=== PATIENT | male | born 1990 | race Caucasian/White ===

== ENCOUNTER 2019-11-04 17:15 | Inpatient (IN) | payer SELFPAY ==
[~2019-11-04] VITALS: Ht 185.4 cm; Wt 74.0 kg
[2019-11-04] VITALS (14 sets, daily range): BP systolic 83–131; BP diastolic 39–98
--- NOTE | 2019-11-04 17:16 | NUR ---
ED Nurse Note: per Dr. Kearns's order, patient was placed on 4 point lether restraint, patient is being uncooperative and combative.
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
--- NOTE | 2019-11-04 17:25 | NUR ---
ED Nurse Note: patient's O2 saturation was dropping to 75% and patient appears to be cyanotic, Dr Kearns at bedside, OPA placed as ordered. patient on 97% on room air, patient does not have gag reflex at this time, pinpoint pupils.
[2019-11-04] MEDS ORDERED: DiphenhydrAMINE 50mg/ml Inj IM ONE (17:30)
[2019-11-04] MEDS ORDERED: Haloperidol 5mg/ml Inj IM ONE (17:30)
[2019-11-04 17:43] LABS: APPEARANCE,URINE CLEAR; BILIRUBIN, URINE NEGATIVE (NEGATIVE); COLOR,URINE PALE YELLOW; GLUCOSE, URINE (UA) NEGATIVE (NEGATIVE); KETONES,URINE NEGATIVE (NEGATIVE); LEUKOCYTE ESTERASE ,URINE NEGATIVE (NEGATIVE); NITRITE,URINE NEGATIVE (NEGATIVE); PH,URINE 6.5 (4.5-8.0); PROTEIN,URINE NEGATIVE (NEGATIVE); UROBILINOGEN,URINE NORMAL MG/DL (0.0-1.0)
[2019-11-04] MEDS ORDERED: Etomidate 40mg/20ml Inj IV ONE (17:45)
[2019-11-04 17:46] LABS: BASOPHILS % (AUTO) 1.1 % (0.0-2.0); EOSINOPHILS % (AUTO) 1.6 % (0.0-3.0); HEMATOCRIT 42.5 % (42.0-52.0); HEMOGLOBIN 15.1 G/DL (14.2-18.0); LYMPHOCYTES % (AUTO) 37.6 % (20.0-45.0); MEAN CORPUSCULAR VOLUME 89 FL (80-99); MONOCYTES % (AUTO) 5.2 % (1.0-10.0); NEUTROPHILS % (AUTO) 54.6 % (45.0-75.0); PLATELET COUNT 379 K/UL (150-450); RED BLOOD COUNT 4.76 M/UL (4.70-6.10); RED CELL DISTRIBUTION WIDTH 10.4 % (11.6-14.8); WHITE BLOOD COUNT 8.6 K/UL (4.8-10.8)
--- NOTE | 2019-11-04 17:54 | NUR ---
ED Nurse Note: 5mg etomidate given IVP as ordered by Dr Kearns, RT at bedside, Dr Kearns at bedside for RSI.
[2019-11-04 18:02] LABS: ANION GAP 14 mmol/L (5-15); BLOOD UREA NITROGEN 24 mg/dL (7-18); CALCIUM 8.5 MG/DL (8.5-10.1); CARBON DIOXIDE 27 MMOL/L (21-32); CHLORIDE 109 MMOL/L (98-107); CREATININE 1.4 MG/DL (0.55-1.30); POTASSIUM 3.8 MMOL/L (3.5-5.1); SODIUM 150 MMOL/L (136-145)
[2019-11-04 18:14] LABS: ALANINE AMINOTRANSFERASE 43 U/L (12-78); ALBUMIN 3.7 G/DL (3.4-5.0); ALBUMIN/GLOBULIN RATIO 1.1 (1.0-2.7); ALKALINE PHOSPHATASE 155 U/L (46-116); ASPARTATE AMINO TRANSFERASE 25 U/L (15-37); BILIRUBIN,TOTAL 0.2 MG/DL (0.2-1.0); CREATINE KINASE 245 U/L (26-308)
--- NOTE | 2019-11-04 18:20 | NUR ---
ED Nurse Note: Orogastric tube placed as ordered by Dr. Kearns by Homa JURADO, 80 christ on the lip. patient is intbuated with 7.5 et tube and 25 on the christ.
--- NOTE | 2019-11-04 18:43 | Diagnostic Imaging Report ---
EXAM: XR Chest, 1 View CLINICAL HISTORY: S/P INTUB TECHNIQUE: Frontal view of the chest. COMPARISON: No relevant prior studies available. FINDINGS: Lungs: Question subtle airspace opacities within the mid to lower lungs. Pleural space: Unremarkable. Heart: Unremarkable. Mediastinum: Unremarkable. Bones/joints: Unremarkable. Tubes, lines and devices: Endotracheal tube terminates at the clavicular heads. Enteric tube is seen coursing the stomach. IMPRESSION: 1. Question subtle airspace opacities within the mid to lower lungs which may be inflammatory or infectious. 2. Support devices appear to be in appropriate position.
--- NOTE | 2019-11-04 19:04 | Pulmonolgy Critical Care Note ---
Critical Care - Asmt/Plan Assessment/Plan: Pulmonary CCM Consultation HPI The patient was acting combative, required sedation and intubation, noted to have elevated ETOH level, positive Methamphetamine. 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 EKG: Rate: tachycardiac Rhythm: NSR ST Segments: no acute changes CXR: ETT/Enteric tube appropriate, subtle basal airspace abnormalities Critical Care - Objective Last 24 Hour Vital Signs Date Time Temp Pulse Resp B/P (MAP) Pulse Ox O2 Delivery O2 Flow Rate FiO2 11/04/19 18:47 17 110/62 Mechanical Ventilator 11/04/19 18:32 17 105/60 Mechanical Ventilator 11/04/19 18:30 106 15 Mechanical Ventilator 100 11/04/19 18:29 97.5 106 15 113/98 100 Room Air 100 11/04/19 18:24 98 17 96 Room Air 11/04/19 18:17 20 130/60 Room Air 11/04/19 18:16 106 17 96 Room Air 11/04/19 18:14 101 22 100 11/04/19 18:01 111 19 96 Room Air 11/04/19 17:46 104 19 96 Room Air 11/04/19 17:31 109 19 96 Room Air 11/04/19 17:16 111 19 78 Room Air 11/04/19 17:11 97.5 90 20 130/54 (79) 98 Room Air Critical Care - Subjective ROS Limited/Unobtainable: No Condition: critical EKG Rhythm: Sinus Tachycardia Vent Support Breath Rate: 14 Vent Support Mode: AC Vent Tidal Volume: 450 Sputum Amount: Moderate PEEP: 5.0 PIP: 11 Alvin Barrett MD Nov 04, 2019 19:04
--- NOTE | 2019-11-04 19:06 | Diagnostic Imaging Report ---
EXAM: XR Abdomen, 2 Views CLINICAL HISTORY: TUBE PLCMT TECHNIQUE: Frontal view of the abdomen/pelvis with upright view of the abdomen. COMPARISON: No relevant prior studies available. FINDINGS: Intraperitoneal space: No free air. Gastrointestinal tract: Moderate amount stool seen through the colon. Bones/joints: Unremarkable. Tubes, lines and devices: Enteric tube with tip in the gastric antrum/first portion the duodenum. IMPRESSION: Enteric tube with tip in the gastric antrum/first portion of the duodenum.
--- NOTE | 2019-11-04 19:15 | NUR ---
HAND-OFF: Report given to Elise Garsia RN, endorsed all plan of care to Elise GUTIERRES. .
--- NOTE | 2019-11-04 19:25 | NUR ---
ED Nurse Note: Recieved report from Jaime Peterson to resume care, pt is in room resting quietly, on ventilator support, has patent IV site in right AC with propofol infusing, pt on cardiac monitoring, tolerating well, was reported pt was very combative, is currently calm, will give report to ICU for pt admission.
[2019-11-04] MEDS ORDERED: LORazepam Inj 2mg/ml 1ml IV PRN ×2 (19:30→22:00)
[2019-11-04] MEDS ORDERED: Albuterol/Ipratropium 3ml neb HHN PRN (19:30)
--- NOTE | 2019-11-04 19:45 | NUR ---
ED Nurse Note: Report given to BHAVIK Rivera for floor admission, no changes noted, tp resting quietly, on vent and propofol infusing, no changes made, pt being taken to floor unit via gurney with SNEHAL-Tech, RB and respiratory therapist, nad or changes noted during pt transport.
--- NOTE | 2019-11-04 20:10 | NUR ---
NURSE NOTES: Received report from BHAVIK Olivares. patient arrived to unit via gurney agitated and restless. patient intubated with 7.5 ETT at 25cm lip right side with vent settings AC 14, TV 450, FiO2 50%, PEEP 5. OGT in place and clamped. PIV on the right AC gauge 20 clean dry intact. skin warm dry intact. Pupils pinpoint at 2mm PERRLA. Patient noncompliant, attempting to get up requiring four staff to control. bilateral soft wrist restraints applied. 16F alvarenga catheter inserted. clear yellow urine draining. Afebrile, NSR, BP stable. patient arrived with propofol drip infusing at 10mcg/kg/min. will continue to monitor.
[2019-11-04] MEDS ORDERED: fentaNYL Citrate 2,500 MCG in NS 200 ML IV SCH (21:00)
[2019-11-04] MEDS: Thiamine 100mg in D5W 55ml IVPB SCH (21:31)
[2019-11-04] MEDS: MULTIVITAMIN IV SCH (21:32)
[2019-11-04] MEDS: [UNRECOGNIZED DRUG - OTHER] IV SCH (21:32)
[2019-11-04] MEDS: FOLIC ACID IV SCH (21:32)
[2019-11-04] MEDS: MAGNESIUM SULFATE IV SCH (21:32)
--- NOTE | 2019-11-04 22:00 | NUR ---
NURSE NOTES: Orders received from Dr. Barrett to start patient on fentanyl drip. patient remains extremely restless and agitated. patient suctioned orally. secretions clear white thin. will continue to monitor.
--- NOTE | 2019-11-04 22:00 | NUR ---
NURSE NOTES: Patient noted to continue to sit in bed. Fentanyl is at max rate 400mcg/hr. PRN 2 mg ativan were given and patient continues to sit up and kick at nurses. Paged MD Barrett, update given, New orders received, Propofol to be started to maintain RASS -1, Ativan to be changed, now 1mg PRN Q2HR. If SBP <100 then give 500ml NS Bolus, If 500 NS bolus ineffective then give 25% Albumin. Orders read back and confirmed by MD. BHAVIK Fajardo and Nayeli short.
[2019-11-04] MEDS: Pantoprazole Inj IVP SCH (22:13)
[2019-11-04] MEDS: cefTRIAXone 1gm/D5W 55ml IVPB SCH ×2 (22:13)
[2019-11-05] VITALS (61 sets, daily range): BP systolic 75–112; BP diastolic 33–65
[2019-11-05] MEDS ORDERED: fentaNYL Citrate 2,500 MCG in NS 200 ML IV SCH ×2
--- NOTE | 2019-11-05 | NUR ---
NURSE NOTES: Dr. Barrett examined patient. ordered to keep sedation to RASS -1 to -2. patient still restless. unable to leave the patients bedside as he attempts to get up from the bed. propofol maintained at 50mcg/kg/min. fentanyl drip started simultaneously at 400mcg/hr. PIV started on right upper arm gauge 22. will continue to monitor.
[2019-11-05] MEDS: fentaNYL Citrate 2,500 MCG in NS 200 ML IV SCH ×3 (00:31→16:42)
--- NOTE | 2019-11-05 01:45 | NUR ---
NURSE NOTES: ABG done and reported to Dr. Barrett. Dr. Barrett aware of abnormal results. Ventilator settings adjusted to AC 18 TV450 FiO2 60% PEEP 5. BP dropped down to 87/40. ordered to start Levophed drip to SBP >90. Call transferred to ER MD for central line placement.
--- NOTE | 2019-11-05 02:30 | Emergency Room Report ---
Physical Exam Vital Signs Date Time Temp Pulse Resp B/P (MAP) Pulse Ox O2 Delivery O2 Flow Rate FiO2 11/04/19 17:11 97.5 90 20 130/54 (79) 98 Room Air 11/04/19 18:14 100 Medical Decision Making Diagnostic Impression: Primary Impression: Respiratory failure Additional Impressions: Substance abuse Hypernatremia Renal insufficiency ER Course Called to the ICU to place a central line for a hypotensive patient. This is a patient that is intubated and sedated. Placed a left-sided femoral vein triple- lumen under ultrasound guidance with good blood return and no complications. Patient remained sedated during the entire procedure. Estimated blood loss of 10 cc. Remainder of care per ICU team. Recall as needed. Last Vital Signs Date Time Temp Pulse Resp B/P (MAP) Pulse Ox O2 Delivery O2 Flow Rate FiO2 11/05/19 01:11 107 20 60 11/05/19 00:31 Mechanical Ventilator 11/04/19 20:59 99 11/04/19 19:50 98.4 131/88 Disposition: ADMITTED INPATIENT Condition: Critical Scripts Unable to Obtain Active Prescriptions or Reported Meds Referrals: NOT CHOSEN IPA/MD,REFERRING (PCP) Procedures Central Line Central Line : Consent: Emergent Central Line Lumen: triple Maximal Sterile Barrier Tech: yes cap, yes sterile gown, yes sterile gloves , yes large sterile sheet, yes hand hygiene, yes chlorhexidine prep No Max Barrier Tech Because: emergency insertion Central Line Postion: femoral (L) Complications: none Central Line Post Position: sutured, good blood return Attempts: One Patient Tolerated: Well Complications: None Mariusz Hoang MD Nov 05, 2019 02:30
--- NOTE | 2019-11-05 02:30 | NUR ---
NURSE NOTES: ER MD arrived to insert left femoral TLC. Levophed standard dose started at 5mcg/min. patient calm and quiet and asleep at this time. unable to titrate propofol and fentanyl down as patient gets extremely agitated and combative at lower doses. will continue to monitor.
--- NOTE | 2019-11-05 04:00 | NUR ---
NURSE NOTES: Patient calm and relaxing. fentanyl titrated down to 300mcg/min. propofol kept at 50mcg/kg/min. will continue to monitor.
--- NOTE | 2019-11-05 06:10 | Pulmonolgy Critical Care Note ---
Critical Care - Asmt/Plan Assessment/Plan: Pulmonary CCM Progress Note HPI The patient was acting combative, required sedation and intubation, noted to have elevated ETOH level, positive Methamphetamine. 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 IV Levophed - MAP >65 ICU time 45m EKG: Rate: tachycardiac Rhythm: NSR ST Segments: no acute changes CXR: ETT/Enteric tube appropriate, subtle basal airspace abnormalities Critical Care - Objective Last 24 Hour Vital Signs Date Time Temp Pulse Resp B/P (MAP) Pulse Ox O2 Delivery O2 Flow Rate FiO2 11/05/19 05:00 12 98/51 Mechanical Ventilator 60 11/05/19 05:00 98/51 11/05/19 05:00 18 Mechanical Ventilator 60 11/05/19 05:00 98.1 108 14 98/51 (67) 89 11/05/19 04:49 107 22 100 11/05/19 04:45 106 15 102/53 (69) 89 11/05/19 04:30 106 18 104/53 (70) 96 11/05/19 04:15 107 20 104/48 (66) 91 11/05/19 04:03 21 91/41 Mechanical Ventilator 60 11/05/19 04:00 92 18 91/41 (58) 96 11/05/19 04:00 92 11/05/19 04:00 91/41 11/05/19 04:00 18 Mechanical Ventilator 60 11/05/19 04:00 Mechanical Ventilator 11/05/19 04:00 60 11/05/19 03:45 92 18 91/40 (57) 96 11/05/19 03:30 92 18 90/36 (54) 97 11/05/19 03:24 91 18 100 11/05/19 03:15 91 18 93/39 (57) 93 11/05/19 03:00 94 18 89/45 (60) 98 11/05/19 03:00 18 89/45 Mechanical Ventilator 60 11/05/19 03:00 89/45 11/05/19 03:00 18 Mechanical Ventilator 60 11/05/19 02:45 92 18 89/43 (58) 98 11/05/19 02:33 85/38 11/05/19 02:30 94 14 85/38 (54) 98 11/05/19 02:15 93 18 85/38 (54) 98 11/05/19 02:00 18 86/35 Mechanical Ventilator 60 11/05/19 02:00 18 Mechanical Ventilator 60 11/05/19 02:00 93 18 86/35 (52) 97 11/05/19 01:45 95 13 86/33 (50) 95 11/05/19 01:30 100 12 85/39 (54) 84 11/05/19 01:15 105 15 85/39 (54) 85 11/05/19 01:11 107 20 60 11/05/19 01:00 98 21 105/45 (65) 94 11/05/19 01:00 21 106/45 Mechanical Ventilator 60 11/05/19 01:00 21 Mechanical Ventilator 60 11/05/19 00:45 101 21 105/45 (65) 95 11/05/19 00:31 21 Mechanical Ventilator 60 11/05/19 00:30 98 21 87/40 (56) 94 11/05/19 00:15 100 21 82/50 (61) 91 11/05/19 00:00 Mechanical Ventilator 11/05/19 00:00 105 11/05/19 00:00 25 89/36 Mechanical Ventilator 60 11/05/19 00:00 60 11/05/19 00:00 108 25 89/36 (53) 94 11/04/19 23:30 101 21 95/63 (74) 99 11/04/19 23:00 99 21 90/39 (56) 98 11/04/19 23:00 21 95/63 Mechanical Ventilator 60 11/04/19 22:45 21 89/42 Mechanical Ventilator 50 11/04/19 22:39 100 21 50 11/04/19 22:30 101 21 89/40 (56) 95 11/04/19 22:30 21 89/40 Mechanical Ventilator 50 11/04/19 22:15 23 104/46 Mechanical Ventilator 50 11/04/19 22:00 115 23 104/46 (65) 100 11/04/19 22:00 17 104/46 Mechanical Ventilator 50 11/04/19 21:43 17 Mechanical Ventilator 50 11/04/19 21:30 97.5 88 17 83/48 (60) 100 11/04/19 21:00 97.5 86 17 83/45 (58) 99 11/04/19 20:59 86 19 99 Mechanical Ventilator 50 11/04/19 20:59 86 17 50 11/04/19 20:10 Mechanical Ventilator 11/04/19 19:50 98.4 88 15 131/88 99 Mechanical Ventilator 50 11/04/19 19:25 98.4 88 15 131/88 99 Mechanical Ventilator 50 11/04/19 19:02 20 149/87 Mechanical Ventilator 11/04/19 18:47 17 110/62 Mechanical Ventilator 11/04/19 18:32 17 105/60 Mechanical Ventilator 11/04/19 18:30 106 15 Mechanical Ventilator 100 11/04/19 18:29 97.5 106 15 113/98 100 Room Air 100 11/04/19 18:24 98 17 96 Room Air 11/04/19 18:17 20 130/60 Room Air 11/04/19 18:16 106 17 96 Room Air 11/04/19 18:14 101 22 100 11/04/19 18:01 111 19 96 Room Air 11/04/19 17:46 104 19 96 Room Air 11/04/19 17:31 109 19 96 Room Air 11/04/19 17:16 111 19 78 Room Air 11/04/19 17:11 97.5 90 20 130/54 (79) 98 Room Air Micro: Microbiology Date/Time Source Procedure Growth Status 11/05/19 05:50 Rectum Received Critical Care - Subjective ROS Limited/Unobtainable: Yes Condition: critical EKG Rhythm: Sinus Rhythm FI02: 60 Vent Support Breath Rate: 18 Vent Support Mode: AC Vent Tidal Volume: 450 Sputum Amount: Small PEEP: 5.0 PIP: 20 I&O: Intake and Output 11/04/19 11/05/19 19:00 07:00 Intake Total 2486.973 ml Output Total 1000 ml 850 ml Balance -1000 ml 1636.973 ml Intake IV Total 2486.973 ml Output Urine Total 1000 ml 850 ml ET-Tube: 7.5 ET Position: 25 Alvin Barrett MD Nov 05, 2019 06:10
--- NOTE | 2019-11-05 07:22 | NUR ---
NURSE NOTES: Received report from BHAVIK Fajardo. Patient is sedated and drowsy. Wake up and get agitated when I touch patient. 3 RNs and 1 RT were helping patient to be calm down for 10min. ETT 7.5/25cm at lipline with vent setting AC 18, VT 450, Peep 5 and FiO2 100%. OGT intact and clamped. 16Fr Ibarra intact and draining with yellow color urine. Left femoral TLC, LFA 20G, Right AC 20G and Right UA 20G IVs intact and clean. Running with propofol 50mcg/kg/hr, Levophed 10mcg/min, fentanyl 300mcg/hr and NS 75ml/hr. Kept dry, clean and comfortable. Will continue plan of care.
--- NOTE | 2019-11-05 07:31 | NUR ---
HAND-OFF: Report given to BHAVIK Diallo.
[2019-11-05 07:53] LABS: ANION GAP 9 mmol/L (5-15); BLOOD UREA NITROGEN 17 mg/dL (7-18); CALCIUM 7.8 MG/DL (8.5-10.1); CARBON DIOXIDE 27 MMOL/L (21-32); CHLORIDE 113 MMOL/L (98-107); CREATINE KINASE 280 U/L (26-308); CREATININE 0.7 MG/DL (0.55-1.30); SODIUM 149 MMOL/L (136-145)
[2019-11-05 08:15] LABS: BASOPHILS % (AUTO) 0.9 % (0.0-2.0); EOSINOPHILS % (AUTO) 0.4 % (0.0-3.0); HEMATOCRIT 37.4 % (42.0-52.0); HEMOGLOBIN 13.4 G/DL (14.2-18.0); LYMPHOCYTES % (AUTO) 27.9 % (20.0-45.0); MEAN CORPUSCULAR VOLUME 90 FL (80-99); MONOCYTES % (AUTO) 2.2 % (1.0-10.0); NEUTROPHILS % (AUTO) 68.6 % (45.0-75.0); PLATELET COUNT 284 K/UL (150-450); RED BLOOD COUNT 4.15 M/UL (4.70-6.10); WHITE BLOOD COUNT 7.1 K/UL (4.8-10.8)
[2019-11-05] MEDS: Pantoprazole Inj IVP SCH ×2 (08:22→21:01)
--- NOTE | 2019-11-05 08:41 | Diagnostic Imaging Report ---
EXAM: XR Chest, 1 View CLINICAL HISTORY: SOB TECHNIQUE: Frontal view of the chest. COMPARISON: 11/04/19 FINDINGS: Lungs: Since the previous study there has been development of moderate to severe diffuse bilateral alveolar infiltrates. Differential diagnostic considerations include pulmonary edema, ARDS or bilateral pneumonia. Pleural space: Unremarkable. No pneumothorax. Heart: Unremarkable. No cardiomegaly. Mediastinum: Unremarkable. Bones/joints: Unremarkable. Tubes, lines and devices: There is an endotracheal tube and NG tube in unchanged position. IMPRESSION: Since the previous study there has been development of moderate to severe diffuse bilateral alveolar infiltrates. Differential diagnostic considerations include pulmonary edema, ARDS or bilateral pneumonia.
--- NOTE | 2019-11-05 09:31 | Diagnostic Imaging Report ---
EXAM: US Duplex Bilateral Lower Extremities Veins CLINICAL HISTORY: DVT lateral leg pain. TECHNIQUE: Real-time duplex ultrasound scan of the bilateral lower extremity veins integrating B-mode two-dimensional vascular structure, Doppler spectral analysis, color flow Doppler imaging and compression. COMPARISON: No relevant prior studies available. FINDINGS: Right deep veins: Unremarkable. No DVT in the right common femoral, femoral, proximal deep femoral or popliteal veins. The veins demonstrate normal color flow, are normally compressible, with normal phasic flow and/or augmentation response. Right superficial veins: Unremarkable. No thrombus in the visualized right great saphenous vein. Left deep veins: No evidence of deep vein thrombosis . Visualization of the common femoral vein was limited due to overlying bandages. Left superficial veins: Evaluation greater saphenous vein limited due to overlying bandages. Soft tissues: No acute findings. No popliteal cyst. IMPRESSION: No acute findings in the bilateral lower extremity veins.
--- NOTE | 2019-11-05 09:36 | NUR ---
RD ASSESSMENT & RECOMMENDATIONS SEE CARE ACTIVITY FOR COMPLETE ASSESSMENT DAILY ESTIMATED NEEDS: Needs based on Critical care/ 81.6kg 22-28 kcals/kg 2688-4918 total kcals 1.2-2 g protein/kg 98-163 g total protein 25-30 mL/kg 2220-9943 total fluid mLs NUTRITION DIAGNOSIS: Swallowing difficulty R/T respiratory failure as evidenced by pt orally intubated and sedated, on pressor support, NPO at this time. CURRENT TF:NPO PO DIET RECOMMENDATIONS: CLIENT DELIVERY SPECIALIST eval upon extubation -> regular/ texture per CLIENT DELIVERY SPECIALIST ENTERAL NUTRITION RECOMMENDATIONS: Vital AF 1.2 @ 65ml/hr x 24 hrs to provide 1560ml, 1872kcal, 117g prot, 1265ml free water * WITH HEMODYNAMIC STABILITY -> initiate Vital AF 1.2 @ 25ml/hr x 6hrs, advance 10ml q 4-6 hrs as tolerated. -> HOB over 30 degrees/ water flush per MD -> If remains on Propofol @ 22.997ml/hr (607kcal per day), rec goal rate of 42ml/hrx 24 hrs (1209 kcal from TF) ADDITIONAL RECOMMENDATIONS: * Calibrated bedscale wt for accurate CBW * Monitor HD stability- NE @ 10mcg * Monitor NPO status
--- NOTE | 2019-11-05 10:02 | NUR ---
NURSE NOTES: Informed Dr. Barrett regarding ABG results. New orders read back and confirmed. Follow up with RT. Will continue to monitor closely.
--- NOTE | 2019-11-05 10:30 | NUR ---
NURSE NOTES: Patient's SBP is 80s. Increased Levophed to 20mcg/min and decreased fentanyl to 330mcg/kg/min. Will continue to montor closely.
--- NOTE | 2019-11-05 10:45 | NUR ---
NURSE NOTES: Patient's SBP is still low as high 70s. Increased levophed to 30mcg/hr and decreased fentanyl to 300mcg/hr. Will titrate levo and fentanyl to maximize pt's stability.
--- NOTE | 2019-11-05 10:57 | History & Physical ---
History and Physical History & Physicial HP dictated # [id number] Delgado Perez MD Nov 05, 2019 10:57
--- NOTE | 2019-11-05 11:01 | NUR ---
NURSE NOTES: Seen by Dr. Freeman Perez and assessed patient.
--- NOTE | 2019-11-05 13:16 | NUR ---
NURSE NOTES: Informed Dr. Barrett regarding F/U with ABG results. No new orders at this time. Will continue plan of care.
[2019-11-05] MEDS: Norepinephrine Bitartrate 8 MG in D5W 500ml 550 ML IV SCH ×3 (13:23→22:32)
--- NOTE | 2019-11-05 15:40 | NUR ---
NURSE NOTES: Patient is still sedated with propofol 50mcg/kg/min and fentanyl 200mcg/hr with RASS -1. Patient opens his eyes to verbal. Levophed running at 30mcg/min and BP 109/63. Vent setting AC 26, VT 500, Peep 7 and FiO2 100%. O2 sat 98% on the monitor. Kept clean, dry and comfortable. Will continue to monitor closely.
--- NOTE | 2019-11-05 16:10 | NUR ---
NURSE NOTES: Seen by Dr. Barrett and assessed patient. New orders read back and confirmed.
--- NOTE | 2019-11-05 18:20 | NUR ---
NURSE NOTES: Patient is still sedated with Propofol 50mcg/kg/min and fentanyl 200mcg/hr with RASS -1. Levophed is running at 30mcg/min to keep MAP>65. ETT 7.5/25cm at lipline with vent setting AC 26, VT 500, Peep 7 and FiO2 80% with O2 sat 96% on the monitor. Kept dry, clean and comfortable. Will continue plan of care.
--- NOTE | 2019-11-05 18:41 | NUR ---
RESPIRATORY NOTE: Received pt on AC 26, 500VT, 80%, PEEP +7. Pt is intubated w/ ETT 7.5 @ 25cm lipline, secured by anchorfast. Pt sedated. B/S otf. clear/diminished, sxn minimal amounts of thin, yellow-pink secretions w/ occasional blood. Both hands on soft res traints to prevent pt from self-extubation. Bite block in place as pt tends to bite ETT. Vent plugged into red outlet, ambubag at bedside. Pt in no apparent distress at this time. Will continue to monitor pt.
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
--- NOTE | 2019-11-05 19:54 | NUR ---
NURSE NOTES: PATIENT SEDATED, RASS SCORE -1, RESPIRATION REGULAR, ON ETT TO VENT AC26/TV500/FIO2 80%/PEEP7, O2 SATURATION 98% NOTED, HEART RATE 80'S/MIN, SINUS RHYTHM, OGT INTACT AND PATENT, NPO STATUS, ABDOMEN SOFT, HYPOACTIVE BOWEL SOUND TO 4 QUADRANTS, NON TENDER, NO N/V, NO BM STATUS, KEPT HOB 30 DEGREES AND ASPIRATION PRECAUTION, F/C INTACT AND PATENT, YELLOW COLOR URINE OUTED, TLC TO LEFT FEMORAL AND PERIPHERAL LINE TO LEFT FA, RIGHT UA AND AC INTACT AND PATENT, ONGOING IV FLUID NS AT 50ML/HR VIA RIGHT FA PPL, LEVOPHED 30MCG/MIN, DIPRIVAN 50MCG/KG/MIN AND FENTANYL 200MCG/HR VIA TLC, 2 POINT SOFT RESTRAINTS FOR SAFETY, MADE LOWER BED POSITION, ON BED ALARM AND LOCKED, PROVIDED CALL LIGHT WITHIN REACH, WILL CONTINUE TO MONITOR.
[2019-11-05] MEDS: Dyna-Hex 2% Top Sol 2oz TOPIC SCH (20:23)
[2019-11-05] MEDS: FOLIC ACID IV SCH (21:02)
[2019-11-05] MEDS: MULTIVITAMIN IV SCH (21:02)
[2019-11-05] MEDS: Thiamine 100mg in D5W 55ml IVPB SCH (21:02)
[2019-11-05] MEDS: [UNRECOGNIZED DRUG - OTHER] IV SCH (21:02)
[2019-11-05] MEDS: cefTRIAXone 1gm/D5W 55ml IVPB SCH ×2 (21:02)
[2019-11-05] MEDS: MAGNESIUM SULFATE IV SCH (21:02)
--- NOTE | 2019-11-05 21:50 | NUR ---
NURSE NOTES: LE: PATIENT SEDATED, KEPT RASS SCORE -1, NO PAIN OR SOB NOTED AT THIS TIME.
--- NOTE | 2019-11-05 23:48 | NUR ---
NURSE NOTES: ONGOING SCD'S TO BOTH LOWER LEGS ORDER, SBP OVER 90MMHG WITH LEVOPHED 30MCG/MIN, WILL CONTINUE TO MONITOR.
[2019-11-06] VITALS (56 sets, daily range): BP systolic 95–125; BP diastolic 35–76
--- NOTE | 2019-11-06 01:20 | NUR ---
NURSE NOTES: PATIENT SEDATED WITH DIPRIVAN 50MCG/KG/MIN AND FENTANYL 260MCG/HR, WILL CONTINUE TO MONITOR.
--- NOTE | 2019-11-06 02:58 | NUR ---
NURSE NOTES: NO PAIN OR SOB NOTED, WILL CONTINUE PLAN OF CARE.
[2019-11-06] MEDS: Norepinephrine Bitartrate 8 MG in D5W 500ml 550 ML IV SCH ×5 (03:04→22:00)
[2019-11-06] MEDS: fentaNYL Citrate 2,500 MCG in NS 200 ML IV SCH ×3 (04:04→22:01)
--- NOTE | 2019-11-06 05:10 | NUR ---
NURSE NOTES: RT CHANGED FIO2 50% SINCE 0500AM, NO SOB OR DISTRESS NOTED, O2 SATURATION 98% NOTED AT THIS TIME.
[2019-11-06 06:10] LABS: HEMATOCRIT 36.5 % (42.0-52.0); HEMOGLOBIN 13.2 G/DL (14.2-18.0); MEAN CORPUSCULAR VOLUME 89 FL (80-99); PLATELET COUNT 249 K/UL (150-450); RED BLOOD COUNT 4.08 M/UL (4.70-6.10); RED CELL DISTRIBUTION WIDTH 10.8 % (11.6-14.8)
--- NOTE | 2019-11-06 06:46 | NUR ---
NURSE NOTES: PATIENT SEDATED, KEPT RASS SCORE -1, NO ACUTE DISTRESS NOTED AT THIS SHIFT.
--- NOTE | 2019-11-06 06:53 | NUR ---
NURSE NOTES: CALLED BACK FROM [facility], REGARDING WBC LEVEL 25.9 THAT WILL ENDORSE TO DAY SHIFT DUE TO PENDING OTHER RESULT AT THIS TIME.
[2019-11-06 06:54] LABS: ANION GAP 3 mmol/L (5-15); BLOOD UREA NITROGEN 9 mg/dL (7-18); CALCIUM 8.6 MG/DL (8.5-10.1); CARBON DIOXIDE 31 MMOL/L (21-32); CHLORIDE 109 MMOL/L (98-107); CREATININE 0.9 MG/DL (0.55-1.30); POTASSIUM 4.6 MMOL/L (3.5-5.1); SODIUM 143 MMOL/L (136-145); WHITE BLOOD COUNT 25.9 K/UL (4.8-10.8)
--- NOTE | 2019-11-06 07:15 | NUR ---
HAND-OFF: Report given to BHAVIK MAXWELL.
--- NOTE | 2019-11-06 07:16 | NUR ---
NURSE NOTES: Received patient from Ollie RN. Patient is sedated, RASS score -1. Sinus Rhthm on the Heart Monitor, HR 88. Receiving oxygen via ET Tube 7.5 25cm at the lip line, vent settings: AC 26, TV 500, FiO2 50%, PEEP 7. IV site is Left Forearm 20g, Right AC 20g, all patent and intact. Left Femoral TLC is intact and receiving Propofol 50mcg/kg/hr, Fentanyl 200mcg/hr, Levophed 30mcg/min Blood pressure is 97/59. Right Upper Arm 22g intact and receiving Folvite, Magnesium Sulfate, Multivitamin in D5 1/2NS at 75cc/hr. Ibarra catheter is intact and draining. Bed is locked, placed in lowest position, side rails up x3, bilateral soft restraints on, peripheral pulses bounding, Bed alarm on, head of bed elevated, call light within reach. Will continue to monitor.
--- NOTE | 2019-11-06 07:40 | NUR ---
RESPIRATORY NOTE: received pt orally intubated with ETT 7.5 placed 25 cm at the lip. ETT is secured via anchor fast with no visible redness or skin irritation. OPA in place to prevent pt biting on tube. alarms are set and audible with ambu bag at bedside. will attempt later this morning to titrate fio2 and cont to monitor.
--- NOTE | 2019-11-06 08:17 | NUR ---
NURSE NOTES: Spoke to Dr. Barrett regarding WBC, orders received.
[2019-11-06] MEDS: Pantoprazole Inj IVP SCH ×2 (08:50→20:35)
[2019-11-06] MEDS ORDERED: Vancomycin 1.5gm/D5W 275ml IVPB SCH ×2 (09:00)
--- NOTE | 2019-11-06 12:27 | NUR ---
NURSE NOTES: Patient seen and assessed by Dr. Barrett. Addendum: 11/06/19 at 1535 by Timothy Rizvi RN NURSE NOTES: Patient seen and assessed by Dr. Barrett, orders received. Dr. Barrett recommended to discuss with Primary MD to consult ID doctor for WBC lab results.
--- NOTE | 2019-11-06 13:58 | NUR ---
NURSE NOTES: Left message to Dr. Perez's office regarding WBC and Band Neutrophils.
--- NOTE | 2019-11-06 14:45 | NUR ---
NURSE NOTES: Patient is sedated RASS score -2, resting in bed, denies any pain. Will continue to monitor. Addendum: 11/06/19 at 1537 by Timothy Rizvi RN NURSE NOTES: Patient is sedated RASS score -2, resting in bed, no facial grimace. Patient is easily aroused by stimulation whether touch or sound. Capable to signal yes or no by head movement. Will continue to monitor.
--- NOTE | 2019-11-06 15:10 | Pulmonolgy Critical Care Note ---
Critical Care - Asmt/Plan Assessment/Plan: Pulmonary CCM Progress Note HPI The patient was acting combative, required sedation and intubation, noted to have elevated ETOH level, positive Methamphetamine. No other history available Sedated on ventilator, now on pressors, worsening pulmonary infiltrates Allergies: No Known Allergies Past Medical History: NA Physical Exam Vital Signs Noted General : Intubated, sedated HEENT: NCAT, dry mm Chest: CTAB Heart: HS1, HS2, RRR Abdomen: Soft, NTND Extremities: Well perfused, no edema LABORATORY CHEMIST: Sedated, no focal signs, no seizures Impression: Primary Impression: Ethanol intoxication ARDS Respiratory failure Hypotension on pressors Possible pneumonia Substance abuse Hypernatremia Renal insufficiency Plan: ACVC Wean as tolerated Continue Ceftriaxone/Flagyl - add Vancomycin Sedation Restraints Thiamine IVF PPX Monitor labs IV hydration. IV Levophed - MAP >65 Sputum, urine culture, BC ICU time 45m EKG: Rate: tachycardiac Rhythm: NSR ST Segments: no acute changes CXR: ETT/Enteric tube appropriate, subtle basal airspace abnormalities Critical Care - Objective Last 24 Hour Vital Signs Date Time Temp Pulse Resp B/P (MAP) Pulse Ox O2 Delivery O2 Flow Rate FiO2 11/06/19 14:40 45 26 50 11/06/19 14:30 78 26 116/66 (83) 97 11/06/19 14:24 26 117/69 Mechanical Ventilator 50 11/06/19 14:00 117/69 11/06/19 14:00 26 117/69 Mechanical Ventilator 50 11/06/19 14:00 26 Mechanical Ventilator 50 11/06/19 14:00 82 26 119/71 (87) 95 11/06/19 13:47 26 Mechanical Ventilator 50 11/06/19 13:30 81 26 119/67 (84) 98 11/06/19 13:13 80 26 50 11/06/19 13:00 80 26 118/67 (84) 99 11/06/19 13:00 112/68 11/06/19 13:00 26 112/68 Mechanical Ventilator 50 11/06/19 13:00 26 Mechanical Ventilator 50 11/06/19 12:45 80 26 119/66 (83) 99 11/06/19 12:39 116/66 11/06/19 12:30 85 26 116/66 (83) 98 11/06/19 12:15 84 25 116/59 (78) 98 2/23/20 12:00 107/48 11/06/19 12:00 26 107/48 Mechanical Ventilator 60 11/06/19 12:00 26 Mechanical Ventilator 60 11/06/19 12:00 60 11/06/19 12:00 92 26 107/48 (67) 97 11/06/19 12:00 Mechanical Ventilator 11/06/19 11:30 94 24 101/70 (80) 96 11/06/19 11:24 88 11/06/19 11:00 96 26 115/62 (79) 96 11/06/19 11:00 110/54 11/06/19 11:00 26 110/54 Mechanical Ventilator 50 11/06/19 11:00 26 Mechanical Ventilator 50 11/06/19 10:55 99 26 50 11/06/19 10:30 96 20 119/64 (82) 100 11/06/19 10:04 26 112/66 Endotracheal Tube 40 11/06/19 10:00 80 26 112/66 (81) 97 11/06/19 10:00 108/64 11/06/19 10:00 25 108/64 Mechanical Ventilator 50 11/06/19 10:00 25 Mechanical Ventilator 50 11/06/19 09:30 80 26 110/62 (78) 97 11/06/19 09:00 85 26 108/58 (75) 97 11/06/19 09:00 107/61 11/06/19 09:00 26 107/61 Mechanical Ventilator 50 11/06/19 09:00 26 Mechanical Ventilator 50 11/06/19 08:55 97 26 50 11/06/19 08:30 84 26 107/60 (76) 98 11/06/19 08:00 Mechanical Ventilator 11/06/19 08:00 85 26 108/56 (73) 97 11/06/19 08:00 108/59 11/06/19 08:00 26 106/57 Mechanical Ventilator 50 11/06/19 08:00 26 Mechanical Ventilator 50 11/06/19 07:56 85 11/06/19 07:45 105/57 11/06/19 07:39 87 26 50 11/06/19 07:30 86 26 105/57 (73) 98 11/06/19 07:00 85 26 107/58 (74) 98 11/06/19 07:00 107/58 11/06/19 07:00 26 107/58 Mechanical Ventilator 50 11/06/19 07:00 26 Mechanical Ventilator 50 11/06/19 06:30 88 26 11/06/19 06:30 87 26 108/57 (74) 97 11/06/19 06:00 105/56 11/06/19 06:00 26 105/56 Mechanical Ventilator 50 11/06/19 06:00 26 Mechanical Ventilator 50 11/06/19 06:00 88 26 105/56 (72) 97 11/06/19 05:31 26 104/60 Mechanical Ventilator 50 11/06/19 05:30 91 26 101/35 (57) 96 11/06/19 05:00 95 26 50 11/06/19 05:00 50 11/06/19 05:00 95 21 95/47 (63) 98 11/06/19 05:00 95/47 11/06/19 05:00 21 95/47 Mechanical Ventilator 50 11/06/19 05:00 26 Mechanical Ventilator 50 11/06/19 04:30 90 26 102/57 (72) 99 11/06/19 04:04 26 Mechanical Ventilator 60 11/06/19 04:00 99.3 90 26 98/57 (71) 98 11/06/19 04:00 98/57 11/06/19 04:00 26 98/57 Mechanical Ventilator 60 11/06/19 04:00 26 Mechanical Ventilator 60 11/06/19 04:00 60 11/06/19 04:00 Mechanical Ventilator 11/06/19 03:56 95 11/06/19 03:30 93 26 102/55 (71) 99 11/06/19 03:04 105/59 11/06/19 03:00 92 26 105/59 (74) 98 11/06/19 03:00 105/59 11/06/19 03:00 26 105/59 Mechanical Ventilator 60 11/06/19 03:00 26 Mechanical Ventilator 60 11/06/19 02:50 91 26 60 11/06/19 02:30 92 26 103/58 (73) 98 11/06/19 02:04 26 97/61 Mechanical Ventilator 60 11/06/19 02:00 97/61 11/06/19 02:00 26 97/61 Mechanical Ventilator 60 11/06/19 02:00 26 Mechanical Ventilator 60 11/06/19 02:00 94 26 97/61 (73) 97 11/06/19 01:30 96 26 106/62 (77) 98 11/06/19 01:00 60 11/06/19 01:00 97/69 11/06/19 01:00 26 97/69 Mechanical Ventilator 60 11/06/19 01:00 26 Mechanical Ventilator 60 11/06/19 01:00 96 26 97/69 (78) 99 11/06/19 00:57 96 26 60 11/06/19 00:30 99 26 96/58 (71) 99 11/06/19 00:00 70 11/06/19 00:00 97 11/06/19 00:00 Mechanical Ventilator 11/06/19 00:00 101/56 11/06/19 00:00 26 101/56 Mechanical Ventilator 70 11/06/19 00:00 26 Mechanical Ventilator 70 11/06/19 00:00 99.1 97 26 101/56 (71) 98 11/05/19 23:50 26 Mechanical Ventilator 70 11/05/19 23:40 26 Mechanical Ventilator 70 11/05/19 23:30 97 26 101/57 (72) 99 11/05/19 23:30 26 Mechanical Ventilator 70 11/05/19 23:00 96/57 11/05/19 23:00 26 96/57 Mechanical Ventilator 70 11/05/19 23:00 26 Mechanical Ventilator 70 11/05/19 23:00 92 25 96/57 (70) 98 11/05/19 22:59 93 26 70 11/05/19 22:32 88/52 11/05/19 22:30 95 26 88/52 (64) 99 11/05/19 22:00 95 26 94/57 (69) 96 11/05/19 22:00 94/57 11/05/19 22:00 26 94/57 Mechanical Ventilator 70 11/05/19 22:00 26 Mechanical Ventilator 70 11/05/19 21:40 26 97/61 Mechanical Ventilator 70 11/05/19 21:35 70 11/05/19 21:30 90 26 97/61 (73) 97 11/05/19 21:28 88 26 70 11/05/19 21:02 97/61 11/05/19 21:02 26 97/61 Mechanical Ventilator 80 11/05/19 21:02 26 Mechanical Ventilator 80 11/05/19 21:00 89 26 97/61 (73) 98 11/05/19 20:30 88 26 99/61 (74) 98 11/05/19 20:00 Mechanical Ventilator 11/05/19 20:00 97/57 11/05/19 20:00 26 97/57 Mechanical Ventilator 80 20 20:00 26 Mechanical Ventilator 80 11/05/19 20:00 80 11/05/19 20:00 98.6 87 26 97/57 (70) 98 11/05/19 19:30 88 26 100/60 (73) 97 11/05/19 19:26 88 11/05/19 19:00 86 26 104/64 (77) 97 11/05/19 19:00 104/64 11/05/19 19:00 26 104/64 Mechanical Ventilator 80 11/05/19 19:00 26 Mechanical Ventilator 80 11/05/19 18:37 87 26 80 11/05/19 18:30 85 26 106/65 (79) 97 11/05/19 18:00 87 26 106/65 (79) 92 11/05/19 18:00 104/63 11/05/19 18:00 26 104/65 Mechanical Ventilator 80 11/05/19 18:00 26 Mechanical Ventilator 80 11/05/19 17:59 103/64 11/05/19 17:30 92 26 105/61 (76) 92 11/05/19 17:23 21 100/61 Mechanical Ventilator 80 11/05/19 17:22 24 105/61 Mechanical Ventilator 80 11/05/19 17:00 100/61 11/05/19 17:00 23 100/61 Mechanical Ventilator 80 11/05/19 17:00 23 Mechanical Ventilator 80 11/05/19 17:00 96 24 100/60 (73) 96 11/05/19 16:50 80 11/05/19 16:50 91 26 80 11/05/19 16:42 26 Mechanical Ventilator 100 11/05/19 16:30 99.4 92 26 104/63 (77) 99 11/05/19 16:00 106/60 11/05/19 16:00 26 106/60 Mechanical Ventilator 100 11/05/19 16:00 26 Mechanical Ventilator 100 11/05/19 16:00 100 11/05/19 16:00 95 11/05/19 16:00 Mechanical Ventilator 11/05/19 16:00 94 26 106/60 (75) 99 11/05/19 15:30 94 26 109/61 (77) 98 11/05/19 15:30 26 Mechanical Ventilator 100 11/05/19 15:15 26 Mechanical Ventilator 100 Micro: Microbiology Date/Time Source Procedure Growth Status 11/05/19 05:50 Rectum Received Critical Care - Subjective ROS Limited/Unobtainable: Yes Condition: critical IV Access: central EKG Rhythm: Sinus Rhythm FI02: 50 Vent Support Breath Rate: 26 Vent Support Mode: AC Vent Tidal Volume: 500 Sputum Amount: Scant PEEP: 7.0 PIP: 28 I&O: Intake and Output 11/05/19 11/06/19 19:00 07:00 Intake Total 2191.297 ml 3219.164 ml Output Total 920 ml 2540 ml Balance 1271.297 ml 679.164 ml Intake IV Total 2091.297 ml 3219.164 ml Other 100 ml Output Urine Total 920 ml 2540 ml ET-Tube: 7.5 ET Position: 25 Alvin Barrett MD Nov 06, 2019 15:10
[2019-11-06] MEDS ORDERED: NS 275ml ONE (16:34)
[2019-11-06] MEDS ORDERED: D5W 275ml ONE (16:34)
[2019-11-06] MEDS: Vancomycin 1.25gm/NS Premix q24h IVPB SCH (17:16)
--- NOTE | 2019-11-06 18:47 | NUR ---
RESPIRATORY NOTE: Received pt on AC 26, 500VT, 80%, PEEP +7. Pt is intubated w/ ETT 7.5 @ 25cm lipline, secured by anchorfast. Pt sedated. B/S otf. diminished, sxn minimal amounts of thin, pink secretions w/ occasional blood clots. Both hands on soft restraints to prevent pt from self-extubation. Bite block in place as pt tends to bite ETT. Vent plugged into red outlet, ambubag at bedside. Pt in no apparent distress at this time. Will continue to monitor pt. Addendum: 11/06/19 at 1850 by STEPHANIE CORBETT RT Pt on 50% FiO2.
--- NOTE | 2019-11-06 18:50 | NUR ---
NURSE NOTES: Gave bed bath to patient, patient remains at RASS score of -2. Easily stimulated by voice and touch. No facial grimace. Will continue to monitor.
--- NOTE | 2019-11-06 19:02 | NUR ---
HAND-OFF: Report given to Chelly GUTIERRES.
--- NOTE | 2019-11-06 19:03 | NUR ---
NURSE NOTES: Received patient from BHAVIK Francois. Will continue plan of care.
--- NOTE | 2019-11-06 19:12 | General Progress Note ---
Assessment/Plan Problem List: (1) Drug overdose ICD Codes: T50.901A - Poisoning by unspecified drugs, medicaments and biological substances, accidental (unintentional), initial encounter SNOMED: 74045243 (2) Encephalopathy ICD Codes: G93.40 - Encephalopathy, unspecified SNOMED: 13284485 (3) Sepsis ICD Codes: A41.9 - Sepsis, unspecified organism SNOMED: 82849281 (4) Respiratory failure ICD Codes: J96.90 - Respiratory failure, unspecified, unspecified whether with hypoxia or hypercapnia SNOMED: 013385591, 483861623 Assessment/Plan: vent support sedation abxs ID consult Discussed with RN Subjective Allergies: Coded Allergies: No Known Allergies (Unverified , 11/04/19) Subjective Intubated Objective Last 24 Hour Vital Signs Date Time Temp Pulse Resp B/P (MAP) Pulse Ox O2 Delivery O2 Flow Rate FiO2 11/06/19 19:00 110/76 11/06/19 19:00 24 110/76 Mechanical Ventilator 50 11/06/19 19:00 24 Mechanical Ventilator 50 11/06/19 19:00 87 24 110/76 (87) 96 11/06/19 18:45 87 26 50 11/06/19 18:30 87 26 106/57 (73) 98 11/06/19 18:28 26 111/54 Mechanical Ventilator 50 11/06/19 18:00 92 26 119/64 (82) 86 11/06/19 18:00 111/54 11/06/19 18:00 26 111/54 Mechanical Ventilator 50 11/06/19 18:00 26 Mechanical Ventilator 50 11/06/19 17:30 92 26 107/65 (79) 87 11/06/19 17:13 120/73 11/06/19 17:00 121/72 11/06/19 17:00 26 121/72 Mechanical Ventilator 50 11/06/19 17:00 26 Mechanical Ventilator 50 11/06/19 17:00 82 26 120/73 (89) 96 11/06/19 16:46 84 26 50 11/06/19 16:30 83 25 112/63 (79) 96 11/06/19 16:00 98.8 83 26 113/63 (80) 97 11/06/19 16:00 Mechanical Ventilator 11/06/19 16:00 50 11/06/19 16:00 114/66 2/23/20 16:00 26 114/66 Mechanical Ventilator 50 11/06/19 16:00 26 Mechanical Ventilator 50 11/06/19 15:49 84 11/06/19 15:30 87 26 120/62 (81) 96 11/06/19 15:00 82 26 108/57 (74) 94 11/06/19 15:00 108/57 11/06/19 15:00 26 108/57 Mechanical Ventilator 50 11/06/19 15:00 26 Mechanical Ventilator 50 11/06/19 14:40 84 26 50 11/06/19 14:30 78 26 116/66 (83) 97 11/06/19 14:24 26 117/69 Mechanical Ventilator 50 11/06/19 14:00 117/69 11/06/19 14:00 26 117/69 Mechanical Ventilator 50 11/06/19 14:00 26 Mechanical Ventilator 50 11/06/19 14:00 82 26 119/71 (87) 95 11/06/19 13:47 26 Mechanical Ventilator 50 11/06/19 13:30 81 26 119/67 (84) 98 11/06/19 13:13 80 26 50 11/06/19 13:00 80 26 118/67 (84) 99 11/06/19 13:00 112/68 11/06/19 13:00 26 112/68 Mechanical Ventilator 50 11/06/19 13:00 26 Mechanical Ventilator 50 11/06/19 12:45 80 26 119/66 (83) 99 11/06/19 12:39 116/66 11/06/19 12:30 85 26 116/66 (83) 98 11/06/19 12:15 84 25 116/59 (78) 98 11/06/19 12:00 107/48 11/06/19 12:00 26 107/48 Mechanical Ventilator 60 11/06/19 12:00 26 Mechanical Ventilator 60 11/06/19 12:00 60 11/06/19 12:00 92 26 107/48 (67) 97 11/06/19 12:00 Mechanical Ventilator 11/06/19 11:30 94 24 101/70 (80) 96 11/06/19 11:24 88 11/06/19 11:00 96 26 115/62 (79) 96 11/06/19 11:00 110/54 11/06/19 11:00 26 110/54 Mechanical Ventilator 50 11/06/19 11:00 26 Mechanical Ventilator 50 11/06/19 10:55 99 26 50 11/06/19 10:30 96 20 119/64 (82) 100 11/06/19 10:04 26 112/66 Endotracheal Tube 40 11/06/19 10:00 80 26 112/66 (81) 97 11/06/19 10:00 108/64 11/06/19 10:00 25 108/64 Mechanical Ventilator 50 11/06/19 10:00 25 Mechanical Ventilator 50 11/06/19 09:30 80 26 110/62 (78) 97 11/06/19 09:00 85 26 108/58 (75) 97 11/06/19 09:00 107/61 11/06/19 09:00 26 107/61 Mechanical Ventilator 50 11/06/19 09:00 26 Mechanical Ventilator 50 11/06/19 08:55 97 26 50 11/06/19 08:30 84 26 107/60 (76) 98 11/06/19 08:00 Mechanical Ventilator 11/06/19 08:00 85 26 108/56 (73) 97 11/06/19 08:00 108/59 11/06/19 08:00 26 106/57 Mechanical Ventilator 50 11/06/19 08:00 26 Mechanical Ventilator 50 11/06/19 07:56 85 11/06/19 07:45 105/57 11/06/19 07:39 87 26 50 11/06/19 07:30 86 26 105/57 (73) 98 11/06/19 07:00 85 26 107/58 (74) 98 11/06/19 07:00 107/58 11/06/19 07:00 26 107/58 Mechanical Ventilator 50 11/06/19 07:00 26 Mechanical Ventilator 50 11/06/19 06:30 88 26 11/06/19 06:30 87 26 108/57 (74) 97 11/06/19 06:00 105/56 11/06/19 06:00 26 105/56 Mechanical Ventilator 50 11/06/19 06:00 26 Mechanical Ventilator 50 11/06/19 06:00 88 26 105/56 (72) 97 11/06/19 05:31 26 104/60 Mechanical Ventilator 50 11/06/19 05:30 91 26 101/35 (57) 96 11/06/19 05:00 95 26 50 11/06/19 05:00 50 11/06/19 05:00 95 21 95/47 (63) 98 11/06/19 05:00 95/47 11/06/19 05:00 21 95/47 Mechanical Ventilator 50 11/06/19 05:00 26 Mechanical Ventilator 50 11/06/19 04:30 90 26 102/57 (72) 99 11/06/19 04:04 26 Mechanical Ventilator 60 11/06/19 04:00 99.3 90 26 98/57 (71) 98 11/06/19 04:00 98/57 11/06/19 04:00 26 98/57 Mechanical Ventilator 60 11/06/19 04:00 26 Mechanical Ventilator 60 11/06/19 04:00 60 11/06/19 04:00 Mechanical Ventilator 11/06/19 03:56 95 11/06/19 03:30 93 26 102/55 (71) 99 11/06/19 03:04 105/59 11/06/19 03:00 92 26 105/59 (74) 98 11/06/19 03:00 105/59 11/06/19 03:00 26 105/59 Mechanical Ventilator 60 11/06/19 03:00 26 Mechanical Ventilator 60 11/06/19 02:50 91 26 60 11/06/19 02:30 92 26 103/58 (73) 98 11/06/19 02:04 26 97/61 Mechanical Ventilator 60 11/06/19 02:00 97/61 11/06/19 02:00 26 97/61 Mechanical Ventilator 60 11/06/19 02:00 26 Mechanical Ventilator 60 11/06/19 02:00 94 26 97/61 (73) 97 11/06/19 01:30 96 26 106/62 (77) 98 11/06/19 01:00 60 11/06/19 01:00 97/69 11/06/19 01:00 26 97/69 Mechanical Ventilator 60 11/06/19 01:00 26 Mechanical Ventilator 60 11/06/19 01:00 96 26 97/69 (78) 99 11/06/19 00:57 96 26 60 11/06/19 00:30 99 26 96/58 (71) 99 11/06/19 00:00 70 11/06/19 00:00 97 11/06/19 00:00 Mechanical Ventilator 11/06/19 00:00 101/56 11/06/19 00:00 26 101/56 Mechanical Ventilator 70 11/06/19 00:00 26 Mechanical Ventilator 70 11/06/19 00:00 99.1 97 26 101/56 (71) 98 11/05/19 23:50 26 Mechanical Ventilator 70 11/05/19 23:40 26 Mechanical Ventilator 70 11/05/19 23:30 97 26 101/57 (72) 99 11/05/19 23:30 26 Mechanical Ventilator 70 11/05/19 23:00 96/57 11/05/19 23:00 26 96/57 Mechanical Ventilator 70 11/05/19 23:00 26 Mechanical Ventilator 70 11/05/19 23:00 92 25 96/57 (70) 98 11/05/19 22:59 93 26 70 11/05/19 22:32 88/52 11/05/19 22:30 95 26 88/52 (64) 99 11/05/19 22:00 95 26 94/57 (69) 96 11/05/19 22:00 94/57 11/05/19 22:00 26 94/57 Mechanical Ventilator 70 11/05/19 22:00 26 Mechanical Ventilator 70 11/05/19 21:40 26 97/61 Mechanical Ventilator 70 11/05/19 21:35 70 11/05/19 21:30 90 26 97/61 (73) 97 11/05/19 21:28 88 26 70 11/05/19 21:02 97/61 11/05/19 21:02 26 97/61 Mechanical Ventilator 80 11/05/19 21:02 26 Mechanical Ventilator 80 11/05/19 21:00 89 26 97/61 (73) 98 11/05/19 20:30 88 26 99/61 (74) 98 11/05/19 20:00 Mechanical Ventilator 11/05/19 20:00 97/57 11/05/19 20:00 26 97/57 Mechanical Ventilator 80 11/05/19 20:00 26 Mechanical Ventilator 80 11/05/19 20:00 80 11/05/19 20:00 98.6 87 26 97/57 (70) 98 11/05/19 19:30 88 26 100/60 (73) 97 11/05/19 19:26 88 Intake and Output 11/05/19 11/06/19 19:00 07:00 Intake Total 2191.297 ml 3219.164 ml Output Total 920 ml 2540 ml Balance 1271.297 ml 679.164 ml Intake IV Total 2091.297 ml 3219.164 ml Other 100 ml Output Urine Total 920 ml 2540 ml Laboratory Tests 11/06/19 05:30: White Blood Count 25.9#*H, Red Blood Count 4.08L, Hemoglobin 13.2L, Hematocrit 36.5L, Mean Corpuscular Volume 89, Mean Corpuscular Hemoglobin 32.4H, Mean Corpuscular Hemoglobin Concent 36.2H, Red Cell Distribution Width 10.8L, Platelet Count 249, Mean Platelet Volume 4.8L, Neutrophils (%) (Auto) , Lymphocytes (%) (Auto) , Monocytes (%) (Auto) , Eosinophils (%) (Auto) , Basophils (%) (Auto) , Differential Total Cells Counted 100, Neutrophils % ( Manual) 57, Lymphocytes % (Manual) 12L, Monocytes % (Manual) 5, Eosinophils % ( Manual) 2, Basophils % (Manual) 0, Band Neutrophils 24H, Platelet Estimate Adequate, Platelet Morphology Normal, Red Blood Cell Morphology Normal, Sodium Level 143, Potassium Level 4.6, Chloride Level 109H, Carbon Dioxide Level 31, Anion Gap 3L, Blood Urea Nitrogen 9, Creatinine 0.9, Estimat Glomerular Filtration Rate > 60, Glucose Level 139H, Calcium Level 8.6 11/06/19 08:50: Arterial Blood pH 7.401, Arterial Blood Partial Pressure CO2 45.5H, Arterial Blood Partial Pressure O2 82.1, Arterial Blood HCO3 27.6H, Arterial Blood Oxygen Saturation 96.0, Arterial Blood Base Excess 2.3H, Cj Test Positive Height (Feet): 6 Height (Inches): 1.00 Weight (Pounds): 175 Cardiovascular: normal rate Respiratory/Chest: rhonchi - bilaterally Abdomen: soft Edema: no edema noted Generalized Delgado Perez MD Nov 06, 2019 19:12
--- NOTE | 2019-11-06 20:00 | NUR ---
NURSE NOTES: Received patient intubated ET 7.5 at 25cm to the right side lipline to vent settings of AC:26, TV:500, FiO2:50%, PEEP:7, Z1ncnmomgycm:99%. Ibarra in place and draining well. OGT in place but no feeding will be started until after CT of head, but currently too unstable to proceed. Left femoral TLC noted and running Levophed at 30mcg/kg/hr, Propofol @ 50mcg/kg/hr and Fentanyl @ 300mcg/kg/hr. Right upper arm 20g IV running NS @ 50ml/hr. Left forearm 20g IV running NS w/ additives (banana bag) @ 75ml/hr. RASS -2 at the moment; opens eyes with movement to voice. Patient can become agitated and trying to get out of bed and pulling on medical devices; WAFER POLISHER restraints in place for safety, skin assessed and ROM performed. Safety measures in place; bed low, locked and alarm is on. Will continue to monitor.
[2019-11-06] MEDS: Dyna-Hex 2% Top Sol 2oz TOPIC SCH (20:34)
[2019-11-06] MEDS: cefTRIAXone 1gm/D5W 55ml IVPB SCH ×2 (20:35)
[2019-11-06] MEDS: MAGNESIUM SULFATE IV SCH (20:35)
[2019-11-06] MEDS: [UNRECOGNIZED DRUG - OTHER] IV SCH (20:35)
[2019-11-06] MEDS: MULTIVITAMIN IV SCH (20:35)
[2019-11-06] MEDS: Thiamine 100mg in D5W 55ml IVPB SCH (20:35)
[2019-11-06] MEDS: FOLIC ACID IV SCH (20:35)
--- NOTE | 2019-11-06 22:00 | NUR ---
NURSE NOTES: RASS -2 light sedation, opens eyes to voice. All drips remains running at the same rate. No changes in condition. Current BP: 125/69, HR:78. O2:100%. Resp:26. Safety measures in place. Will continue to monitor.
[2019-11-07] VITALS (84 sets, daily range): BP systolic 82–148; BP diastolic 37–100
--- NOTE | 2019-11-07 | NUR ---
NURSE NOTES: No changes in patient's condition; remains RASS -2 light sedation; opens eyes to voice. IV drips continues to run at the same rate. Current BP:127/78, HR:72, O2:97%. RESP:26. Shows no signs of distress. Safety measures in place. Will continue to monitor.
[2019-11-07] MEDS: Vancomycin 1.25gm/NS Premix q24h IVPB SCH ×3 (01:10→17:29)
--- NOTE | 2019-11-07 02:00 | NUR ---
NURSE NOTES: Turned and repositioned. Patient still trying to move out of bed. Drips continues to run, no rate changes. FiO2 titrated down to 40% per RT. BP:127/85, HR:71, O2:96%, RESP:26. Safety measures in place; bed low, locked and alarm is on. Will continue to monitor.
[2019-11-07] MEDS: Norepinephrine Bitartrate 8 MG in D5W 500ml 550 ML IV SCH ×3 (02:54→17:00)
--- NOTE | 2019-11-07 04:00 | NUR ---
NURSE NOTES: No changes in patients condition. RASS -2 light sedation and open eyes to voice. IV drips continues to run with no adjustments made. Safety measures in place. Will continue to monitor. BP:137/94. HR:61, O@:96%, RESP:26.
--- NOTE | 2019-11-07 06:00 | NUR ---
NURSE NOTES: Bed bath given with scottie-hex, oral care attempted, linens changed, left femoral TLC dressing changed. Repositioned. SCDs on. Safety measures in place; bed low, locked and alarm is on. BP:139/85, HR:59. RASS -2 light sedation, arouse and opens eyes to voice. IV drips remains running with no changes in rate.
[2019-11-07 06:11] LABS: HEMATOCRIT 35.1 % (42.0-52.0); MEAN CORPUSCULAR VOLUME 88 FL (80-99); PLATELET COUNT 221 K/UL (150-450); RED BLOOD COUNT 3.97 M/UL (4.70-6.10); RED CELL DISTRIBUTION WIDTH 10.7 % (11.6-14.8)
[2019-11-07 06:18] LABS: WHITE BLOOD COUNT 22.8 K/UL (4.8-10.8)
[2019-11-07] MEDS: fentaNYL Citrate 2,500 MCG in NS 200 ML IV SCH ×3 (06:32→22:01)
[2019-11-07 06:41] LABS: ANION GAP 7 mmol/L (5-15); BLOOD UREA NITROGEN 7 mg/dL (7-18); CALCIUM 8.4 MG/DL (8.5-10.1); CARBON DIOXIDE 27 MMOL/L (21-32); CHLORIDE 109 MMOL/L (98-107); CREATININE 0.8 MG/DL (0.55-1.30); POTASSIUM 3.5 MMOL/L (3.5-5.1); SODIUM 143 MMOL/L (136-145); TRIGLYCERIDES 126 MG/DL (30-150)
--- NOTE | 2019-11-07 07:00 | NUR ---
NURSE NOTES: Pt received from BHAVIK Spaulding sedated, RASS -2, opens eyes for 5-6 sec when called by name, able to squeeze my hands on command, bilat pupils equal and round 2 mm with sluggish light rxn. Bilat radial pulses 2+ and bilat dorsalis pedis pulses 1+ with palpation. Pt noted sinus ren to merchandising consultant (HR 58-59 bpm), cap refill is less than 3 sec, pt is afebrile. Pt is mechanically ventilated with 7.5 ETT noted 25 cm right lip corner with settings: AC 26 TV 500 FiO2 40% Peep 7. Bilat upper lung sounds are CTA and bilat lower lung sounds are diminished upon auscultation. Abd is soft and flat with active bowel sounds noted to all quadrants. OGT noted clamped. Ibarra noted draining yellow urine. Skin is noted intact with tattoos to upper extremities. Pt has bilat soft wrist restraints, radial pulses palpable and bilat wrist skin intact. Pt has a left femoral TLC with dry and intact dressing running levophed at 30 mcg/min, fentanyl at 300 mcg/hr, and propofol at 50 mcg/kg/min. Pt also has a LFA 20g IV running D5 1/2NS with folvite, magneisum, and multivit running at 75 cc/hr. RAC and JV 20g IVs saline locked. Bed is in lowest position, alarm on, side rails up x 3, SCDs on bilat lwoer extremities, call light within reach, will continue to monitor pt. Addendum: 11/07/19 at 1924 by Lora Pinzon RN Amendment: RAC 22g IV (not 20g)
--- NOTE | 2019-11-07 07:15 | NUR ---
HAND-OFF: Report given to BHAVIK CURRAN.
--- NOTE | 2019-11-07 08:00 | NUR ---
NURSE NOTES: Oral care provided, pt repositioned, attempts to pull on OGT and femoral line when released from restraints during repositioning. Fentanyl and Levophed drips are currently being titrated down. Pt is no acute distress. Will continue to monitor.
--- NOTE | 2019-11-07 08:02 | Pulmonolgy Critical Care Note ---
Critical Care - Asmt/Plan Assessment/Plan: Pulmonary CCM Progress Note HPI The patient was acting combative, required sedation and intubation, noted to have elevated ETOH level, positive Methamphetamine. No other history available Sedated on ventilator, now on pressors, worsening pulmonary infiltrates, renal function stable Allergies: No Known Allergies Past Medical History: NA Physical Exam Vital Signs Noted General : Intubated, sedated HEENT: NCAT, dry mm Chest: CTAB Heart: HS1, HS2, RRR Abdomen: Soft, NTND Extremities: Well perfused, no edema TILE DITCHER: Sedated, no focal signs, no seizures Impression: Primary Impression: Ethanol intoxication ARDS Respiratory failure Hypotension on pressors Possible pneumonia Substance abuse Hypernatremia Renal insufficiency Plan: ACVC - adjust PEEP/FIO2 as necessary Wean as tolerated Continue Ceftriaxone/Flagyl/Vancomycin Sedation Restraints Thiamine IVF PPX Monitor labs IV hydration. IV Levophed - MAP >65 Sputum, urine culture, BC NGT feeding Nutrition consult ICU time 45m seen earlier EKG: Rate: tachycardiac Rhythm: NSR ST Segments: no acute changes CXR: ETT/Enteric tube appropriate, subtle basal airspace abnormalities Critical Care - Objective Last 24 Hour Vital Signs Date Time Temp Pulse Resp B/P (MAP) Pulse Ox O2 Delivery O2 Flow Rate FiO2 11/07/19 07:41 138/81 11/07/19 07:18 60 26 40 11/07/19 07:15 64 22 143/89 (107) 93 11/07/19 07:00 58 26 141/88 (105) 97 11/07/19 07:00 26 143/89 Mechanical Ventilator 40 11/07/19 07:00 26 Mechanical Ventilator 40 11/07/19 06:32 26 Mechanical Ventilator 40 11/07/19 06:30 58 26 138/85 (102) 96 11/07/19 06:30 59 26 11/07/19 06:21 26 Mechanical Ventilator 40 11/07/19 06:15 59 26 138/84 (102) 96 11/07/19 06:13 26 135/83 Mechanical Ventilator 40 11/07/19 06:00 26 135/83 Mechanical Ventilator 40 11/07/19 06:00 26 Mechanical Ventilator 40 11/07/19 06:00 58 26 135/83 (100) 96 11/07/19 05:30 64 26 138/86 (103) 98 11/07/19 05:10 71 26 40 2/24/20 05:00 67 26 139/83 (101) 98 11/07/19 05:00 26 139/83 Mechanical Ventilator 40 11/07/19 05:00 26 Mechanical Ventilator 40 11/07/19 04:38 59 11/07/19 04:30 60 26 129/87 (101) 94 11/07/19 04:15 60 26 128/86 (100) 95 11/07/19 04:00 40 11/07/19 04:00 97.8 65 26 137/93 (108) 97 11/07/19 04:00 26 137/93 Mechanical Ventilator 40 11/07/19 04:00 26 Mechanical Ventilator 40 11/07/19 04:00 Mechanical Ventilator 11/07/19 03:45 63 26 133/93 (106) 96 11/07/19 03:30 64 26 136/92 (107) 96 11/07/19 03:00 62 26 40 11/07/19 03:00 26 116/85 Mechanical Ventilator 50 11/07/19 03:00 26 Mechanical Ventilator 50 11/07/19 03:00 77 26 116/85 (95) 100 11/07/19 02:54 144/94 11/07/19 02:45 64 26 144/94 (111) 94 11/07/19 02:30 79 26 93/37 (55) 98 11/07/19 02:15 74 26 127/85 (99) 96 11/07/19 02:00 26 Mechanical Ventilator 50 11/07/19 02:00 74 26 128/77 (94) 94 11/07/19 01:58 26 133/87 Mechanical Ventilator 40 11/07/19 01:45 72 26 133/87 (102) 97 11/07/19 01:30 72 26 131/81 (98) 97 11/07/19 01:15 73 26 130/81 (97) 97 11/07/19 01:10 26 123/74 Mechanical Ventilator 50 11/07/19 01:00 69 23 128/77 (94) 99 11/07/19 01:00 26 128/77 Mechanical Ventilator 50 11/07/19 01:00 26 Mechanical Ventilator 50 11/07/19 00:55 69 26 40 11/07/19 00:45 70 26 125/80 (95) 98 11/07/19 00:30 74 26 129/78 (95) 97 11/07/19 00:15 74 26 122/77 (92) 98 11/07/19 00:00 50 11/07/19 00:00 Mechanical Ventilator 11/07/19 00:00 26 123/74 Mechanical Ventilator 50 11/07/19 00:00 26 Mechanical Ventilator 50 11/07/19 00:00 99.1 77 26 123/74 (90) 98 11/06/19 23:43 79 11/06/19 23:30 82 26 120/69 (86) 98 11/06/19 23:15 85 26 118/66 (83) 98 11/06/19 23:00 118/66 11/06/19 23:00 26 118/66 Mechanical Ventilator 50 11/06/19 23:00 26 Mechanical Ventilator 50 11/06/19 23:00 86 26 114/65 (81) 99 11/06/19 22:51 87 26 50 11/06/19 22:45 89 24 115/68 (84) 92 11/06/19 22:42 23 125/69 Mechanical Ventilator 50 11/06/19 22:30 78 26 125/69 (87) 100 11/06/19 22:15 79 26 125/71 (89) 100 20 22:01 26 Mechanical Ventilator 50 11/06/19 22:00 80 26 118/69 (85) 100 11/06/19 22:00 120/68 11/06/19 22:00 26 120/68 Mechanical Ventilator 50 11/06/19 22:00 26 Mechanical Ventilator 50 11/06/19 21:45 81 26 120/68 (85) 100 11/06/19 21:30 83 26 117/67 (84) 99 11/06/19 21:15 85 26 50 11/06/19 21:00 26 114/61 Mechanical Ventilator 50 11/06/19 21:00 85 26 114/61 (78) 100 11/06/19 20:45 94 21 121/54 (76) 96 11/06/19 20:30 81 26 119/70 (86) 99 11/06/19 20:00 98.8 82 26 116/67 (83) 99 11/06/20 20:00 116/67 11/06/19 20:00 26 116/67 Mechanical Ventilator 50 11/06/19 20:00 26 Mechanical Ventilator 50 11/06/19 20:00 Mechanical Ventilator 11/06/19 20:00 50 11/06/19 19:45 82 26 117/64 (81) 99 11/06/19 19:30 82 26 115/60 (78) 98 20 19:25 83 20 19:00 110/76 11/06/19 19:00 24 110/76 Mechanical Ventilator 50 11/06/19 19:00 24 Mechanical Ventilator 50 11/06/19 19:00 87 24 110/76 (87) 96 11/06/19 18:45 87 26 50 11/06/19 18:30 87 26 106/57 (73) 98 11/06/19 18:28 26 111/54 Mechanical Ventilator 50 11/06/19 18:00 92 26 119/64 (82) 86 11/06/19 18:00 111/54 11/06/19 18:00 26 111/54 Mechanical Ventilator 50 11/06/19 18:00 26 Mechanical Ventilator 50 11/06/19 17:30 92 26 107/65 (79) 87 11/06/19 17:13 120/73 11/06/19 17:00 121/72 11/06/19 17:00 26 121/72 Mechanical Ventilator 50 11/06/19 17:00 26 Mechanical Ventilator 50 11/06/19 17:00 82 26 120/73 (89) 96 11/06/19 16:46 84 26 50 11/06/19 16:30 83 25 112/63 (79) 96 11/06/19 16:00 98.8 83 26 113/63 (80) 97 11/06/19 16:00 Mechanical Ventilator 11/06/19 16:00 50 11/06/19 16:00 114/66 11/06/19 16:00 26 114/66 Mechanical Ventilator 50 11/06/19 16:00 26 Mechanical Ventilator 50 11/06/19 15:49 84 11/06/19 15:30 87 26 120/62 (81) 96 11/06/19 15:00 82 26 108/57 (74) 94 11/06/19 15:00 108/57 11/06/19 15:00 26 108/57 Mechanical Ventilator 50 11/06/19 15:00 26 Mechanical Ventilator 50 11/06/19 14:40 84 26 50 11/06/19 14:30 78 26 116/66 (83) 97 11/06/19 14:24 26 117/69 Mechanical Ventilator 50 11/06/19 14:00 117/69 11/06/19 14:00 26 117/69 Mechanical Ventilator 50 11/06/19 14:00 26 Mechanical Ventilator 50 11/06/19 14:00 82 26 119/71 (87) 95 11/06/19 13:47 26 Mechanical Ventilator 50 11/06/19 13:30 81 26 119/67 (84) 98 11/06/19 13:13 80 26 50 11/06/19 13:00 80 26 118/67 (84) 99 11/06/19 13:00 112/68 11/06/19 13:00 26 112/68 Mechanical Ventilator 50 11/06/19 13:00 26 Mechanical Ventilator 50 11/06/19 12:45 80 26 119/66 (83) 99 11/06/19 12:39 116/66 11/06/19 12:30 85 26 116/66 (83) 98 11/06/19 12:15 84 25 116/59 (78) 98 11/06/19 12:00 107/48 11/06/19 12:00 26 107/48 Mechanical Ventilator 60 11/06/19 12:00 26 Mechanical Ventilator 60 11/06/19 12:00 60 11/06/19 12:00 92 26 107/48 (67) 97 11/06/19 12:00 Mechanical Ventilator 11/06/19 11:30 94 24 101/70 (80) 96 11/06/19 11:24 88 11/06/19 11:00 96 26 115/62 (79) 96 11/06/19 11:00 110/54 11/06/19 11:00 26 110/54 Mechanical Ventilator 50 11/06/19 11:00 26 Mechanical Ventilator 50 11/06/19 10:55 99 26 50 11/06/19 10:30 96 20 119/64 (82) 100 11/06/19 10:04 26 112/66 Endotracheal Tube 40 11/06/19 10:00 80 26 112/66 (81) 97 11/06/19 10:00 108/64 11/06/19 10:00 25 108/64 Mechanical Ventilator 50 11/06/19 10:00 25 Mechanical Ventilator 50 11/06/19 09:30 80 26 110/62 (78) 97 11/06/19 09:00 85 26 108/58 (75) 97 11/06/19 09:00 107/61 11/06/19 09:00 26 107/61 Mechanical Ventilator 50 11/06/19 09:00 26 Mechanical Ventilator 50 11/06/19 08:55 97 26 50 11/06/19 08:30 84 26 107/60 (76) 98 Micro: Microbiology Date/Time Source Procedure Growth Status 11/06/19 14:29 Sputum Gram Stain - Final Resulted 11/06/19 14:29 Sputum Sputum Culture - Preliminary NO GROWTH Resulted 11/05/19 05:50 Rectum - Final NO CARBAPENEM-RESISTANT ENTEROBACTERI... Complete 11/05/19 05:50 Rectum VRE Culture - Final NO VANCOMYCIN RESISTANT ENTEROCOCCUS ... Complete Critical Care - Subjective ROS Limited/Unobtainable: No Condition: improving FI02: 40 Vent Support Breath Rate: 26 Vent Support Mode: AC Vent Tidal Volume: 500 Sputum Amount: Scant PEEP: 7.0 PIP: 43 I&O: Intake and Output 11/06/19 11/07/19 19:00 07:00 Intake Total 2797.564 ml 3102.0164 ml Output Total 2670 ml 3400 ml Balance 127.564 ml -297.9836 ml Intake IV Total 2797.564 ml 3102.0164 ml Output Urine Total 2670 ml 3400 ml ET-Tube: 7.5 ET Position: 25 Alvin Barrett MD Nov 07, 2019 08:02
[2019-11-07] MEDS: Pantoprazole Inj IVP SCH ×2 (08:10→21:01)
--- NOTE | 2019-11-07 09:00 | NUR ---
NURSE NOTES: Dr Perez at bedside assessing pt and reviewing labs for today, made aware of WBC count results for today (22.8).
--- NOTE | 2019-11-07 10:00 | NUR ---
NURSE NOTES: Pt repositioned, no acute distress noted at this time. Continuing to titrate down levo and fentanyl drip. Addendum: 11/07/19 at 1919 by Lora Pinzon RN Late entry: propofol IV tubing changed. Addendum: 11/08/19 at 0801 by Lora Pinzon RN amendment: incorrect time for IV tubing replacement.
--- NOTE | 2019-11-07 11:00 | NUR ---
NURSE NOTES: New propofol container just hung, continuing same rate at this time of 50 mcg/kg/hr, pt remains at RASS -2, opens eyes when called by name for 5-6 sec. PEEP (vent settings) reduced to 5 with FiO2 40% per Dr Barrett at this time. Pt in no acute distress. Addendum: 11/08/19 at 0801 by Lora Pinzon RN Late entry: propofol IV tubing changed.
--- NOTE | 2019-11-07 11:17 | NUR ---
RADIOLOGY DEPT., CHEST X-RAY DONE.-P.DYE
--- NOTE | 2019-11-07 11:25 | NUR ---
NURSE NOTES: Pt's spO2 observed declining into 80-85%. Dr Barrett made aware and instructed to change PEEP back to 7 at this time and titrate FiO2 to keep spO2 above 90%. FiO2 now at 100%.
--- NOTE | 2019-11-07 12:00 | NUR ---
NURSE NOTES: Pt now observed with spO2 95-100%. FiO2 reduced to 75% per Eric SPIVEY. Pt in no acute distress. Oral care provided and pt repositioned. Will continue to monitor. Per Dr. Barrett, begin weaning trial tomorrow, keep pt sedated today. Eric SPIVEY made aware.
--- NOTE | 2019-11-07 12:02 | Diagnostic Imaging Report ---
Indication: Dyspnea Technique: One view of the chest Comparison: 11/05/2019 Findings: Stable satisfactory positions of endotracheal and nasogastric tubes. Interim marked improvement of previously demonstrated bilateral interstitial and airspace disease, with mild residual hazy opacities in the bilateral perihilar regions lung bases. There is also some residual parenchymal opacity in the right lower obscuring right hemidiaphragm. The heart size is normal. The pleural spaces are grossly clear. Impression: Markedly improved parenchymal disease bilaterally, over 2 days, with some residual
--- NOTE | 2019-11-07 13:41 | NUR ---
NURSE NOTES: Dr Delgado Perez came to see pt, discussed care plan with him, new order placed for psych consult with Dr Carr. Dr Carr notified.
[2019-11-07] MEDS: Piperacillin/Tazobactam 3.375 GM in NS 110 ML IVPB SCH ×2 (13:56→21:00)
--- NOTE | 2019-11-07 13:57 | NUR ---
NURSE NOTES: Dr Barrett at bedside assessing pt, per Dr Barrett, start pt on tube feeding per RD recommendation, once goal is reached, d/c NS IVF.
--- NOTE | 2019-11-07 14:00 | NUR ---
NURSE NOTES: Pt repositioned, tube feeding started (Vital AF 1.2) at 10 cc/hr with goal of 42 cc/hr per RD recommendation. No acute distress noted.
--- NOTE | 2019-11-07 14:15 | General Progress Note ---
Assessment/Plan Problem List: (1) Drug overdose ICD Codes: T50.901A - Poisoning by unspecified drugs, medicaments and biological substances, accidental (unintentional), initial encounter SNOMED: 23679486 (2) Encephalopathy ICD Codes: G93.40 - Encephalopathy, unspecified SNOMED: 52247523 (3) Sepsis ICD Codes: A41.9 - Sepsis, unspecified organism SNOMED: 27871967 (4) Respiratory failure ICD Codes: J96.90 - Respiratory failure, unspecified, unspecified whether with hypoxia or hypercapnia SNOMED: 194947543, 098670756 Assessment/Plan: wean as tolerated abxs Discussed with child and adolescent psychologist consult Subjective Allergies: Coded Allergies: No Known Allergies (Unverified , 11/04/19) Subjective Intubated Objective Last 24 Hour Vital Signs Date Time Temp Pulse Resp B/P (MAP) Pulse Ox O2 Delivery O2 Flow Rate FiO2 11/07/19 14:00 82 26 115/68 (84) 95 11/07/19 13:30 90 16 115/71 (86) 95 11/07/19 13:30 65 11/07/19 13:29 87 27 65 11/07/19 13:00 75 25 115/68 (84) 96 11/07/19 13:00 115/68 11/07/19 13:00 26 115/68 Mechanical Ventilator 75 11/07/19 13:00 26 Mechanical Ventilator 75 11/07/19 12:45 71 24 115/68 (84) 98 11/07/19 12:30 72 25 118/77 (91) 99 11/07/19 12:15 70 26 119/72 (88) 98 11/07/19 12:00 98.4 72 26 117/69 (85) 96 11/07/19 12:00 70 11/07/19 12:00 75 11/07/19 12:00 117/69 11/07/19 12:00 26 117/69 Mechanical Ventilator 75 11/07/19 12:00 26 Mechanical Ventilator 75 11/07/19 12:00 Mechanical Ventilator Mechanical Ventilator 11/07/19 11:45 73 26 111/66 (81) 99 11/07/19 11:45 75 11/07/19 11:30 78 26 107/59 (75) 95 11/07/19 11:25 100 11/07/19 11:22 82 26 40 11/07/19 11:15 26 Mechanical Ventilator 40 11/07/19 11:15 84 26 111/60 (77) 88 11/07/19 11:04 76 26 35 11/07/19 11:00 78 25 105/60 (75) 99 11/07/19 11:00 105/60 11/07/19 11:00 26 Mechanical Ventilator 40 11/07/19 11:00 40 11/07/19 10:59 26 110/66 40 11/07/19 10:58 25 105/60 Mechanical Ventilator 40 11/07/19 10:45 26 Mechanical Ventilator 40 11/07/19 10:45 69 26 110/66 (81) 100 11/07/19 10:30 69 26 112/68 (83) 99 11/07/19 10:30 26 Mechanical Ventilator 40 11/07/19 10:15 26 Mechanical Ventilator 40 11/07/19 10:15 67 26 121/73 (89) 100 11/07/19 10:00 126/77 11/07/19 10:00 26 126/77 Mechanical Ventilator 40 11/07/19 10:00 26 Mechanical Ventilator 40 11/07/19 10:00 66 26 126/77 (93) 99 11/07/19 09:45 65 26 121/72 (88) 99 11/07/19 09:45 26 Mechanical Ventilator 40 11/07/19 09:30 65 26 119/66 (83) 100 11/07/19 09:30 26 Mechanical Ventilator 40 11/07/19 09:15 26 Mechanical Ventilator 40 11/07/19 09:15 63 26 125/68 (87) 100 11/07/19 09:04 63 26 40 11/07/19 09:00 61 26 128/80 (96) 99 11/07/19 09:00 128/80 11/07/19 09:00 26 128/80 Mechanical Ventilator 40 11/07/19 09:00 26 Mechanical Ventilator 40 11/07/19 08:45 66 26 131/82 (98) 98 11/07/19 08:45 26 Mechanical Ventilator 40 11/07/19 08:30 60 26 126/74 (91) 97 11/07/19 08:30 131/82 11/07/19 08:30 26 Mechanical Ventilator 40 11/07/19 08:15 60 26 130/73 (92) 96 11/07/19 08:15 126/74 11/07/19 08:15 26 Mechanical Ventilator 40 11/07/19 08:00 58 11/07/19 08:00 98.2 62 26 135/83 (100) 97 11/07/19 08:00 40 11/07/19 08:00 130/73 11/07/19 08:00 26 130/73 Mechanical Ventilator 40 11/07/19 08:00 26 Mechanical Ventilator 40 11/07/19 08:00 Mechanical Ventilator Mechanical Ventilator 11/07/19 07:45 62 26 133/76 (95) 99 11/07/19 07:45 135/83 11/07/19 07:45 26 Mechanical Ventilator 40 11/07/19 07:41 138/81 11/07/19 07:30 67 25 138/81 (100) 97 11/07/19 07:30 133/76 11/07/19 07:30 26 Mechanical Ventilator 40 11/07/19 07:18 60 26 40 11/07/19 07:15 138/81 11/07/19 07:15 26 Non-Rebreather 40 11/07/19 07:15 64 22 143/89 (107) 93 11/07/19 07:00 58 26 141/88 (105) 97 11/07/19 07:00 143/89 11/07/19 07:00 26 143/89 Mechanical Ventilator 40 11/07/19 07:00 26 Mechanical Ventilator 40 11/07/19 06:32 26 Mechanical Ventilator 40 11/07/19 06:30 58 26 138/85 (102) 96 11/07/19 06:30 59 26 11/07/19 06:21 26 Mechanical Ventilator 40 11/07/19 06:15 59 26 138/84 (102) 96 11/07/19 06:13 26 135/83 Mechanical Ventilator 40 11/07/19 06:00 26 135/83 Mechanical Ventilator 40 11/07/19 06:00 26 Mechanical Ventilator 40 11/07/19 06:00 58 26 135/83 (100) 96 11/07/19 05:30 64 26 138/86 (103) 98 11/07/19 05:10 71 26 40 11/07/19 05:00 67 26 139/83 (101) 98 11/07/19 05:00 26 139/83 Mechanical Ventilator 40 11/07/19 05:00 26 Mechanical Ventilator 40 11/07/19 04:38 59 11/07/19 04:30 60 26 129/87 (101) 94 11/07/19 04:15 60 26 128/86 (100) 95 11/07/19 04:00 40 11/07/19 04:00 97.8 65 26 137/93 (108) 97 11/07/19 04:00 26 137/93 Mechanical Ventilator 40 11/07/19 04:00 26 Mechanical Ventilator 40 11/07/19 04:00 Mechanical Ventilator 11/07/19 03:45 63 26 133/93 (106) 96 11/07/19 03:30 64 26 136/92 (107) 96 11/07/19 03:00 62 26 40 11/07/19 03:00 26 116/85 Mechanical Ventilator 50 11/07/19 03:00 26 Mechanical Ventilator 50 11/07/19 03:00 77 26 116/85 (95) 100 11/07/19 02:54 144/94 11/07/19 02:45 64 26 144/94 (111) 94 11/07/19 02:30 79 26 93/37 (55) 98 11/07/19 02:15 74 26 127/85 (99) 96 11/07/19 02:00 26 Mechanical Ventilator 50 11/07/19 02:00 74 26 128/77 (94) 94 11/07/19 01:58 26 133/87 Mechanical Ventilator 40 11/07/19 01:45 72 26 133/87 (102) 97 11/07/19 01:30 72 26 131/81 (98) 97 11/07/19 01:15 73 26 130/81 (97) 97 11/07/19 01:10 26 123/74 Mechanical Ventilator 50 11/07/19 01:00 69 23 128/77 (94) 99 11/07/19 01:00 26 128/77 Mechanical Ventilator 50 11/07/19 01:00 26 Mechanical Ventilator 50 11/07/19 00:55 69 26 40 11/07/19 00:45 70 26 125/80 (95) 98 11/07/19 00:30 74 26 129/78 (95) 97 11/07/19 00:15 74 26 122/77 (92) 98 11/07/19 00:00 50 11/07/19 00:00 Mechanical Ventilator 11/07/19 00:00 26 123/74 Mechanical Ventilator 50 11/07/19 00:00 26 Mechanical Ventilator 50 11/07/19 00:00 99.1 77 26 123/74 (90) 98 11/06/19 23:43 79 11/06/19 23:30 82 26 120/69 (86) 98 11/06/19 23:15 85 26 118/66 (83) 98 11/06/19 23:00 118/66 11/06/19 23:00 26 118/66 Mechanical Ventilator 50 11/06/19 23:00 26 Mechanical Ventilator 50 11/06/19 23:00 86 26 114/65 (81) 99 11/06/19 22:51 87 26 50 11/06/19 22:45 89 24 115/68 (84) 92 11/06/19 22:42 23 125/69 Mechanical Ventilator 50 11/06/19 22:30 78 26 125/69 (87) 100 11/06/19 22:15 79 26 125/71 (89) 100 11/06/19 22:01 26 Mechanical Ventilator 50 11/06/19 22:00 80 26 118/69 (85) 100 11/06/19 22:00 120/68 11/06/19 22:00 26 120/68 Mechanical Ventilator 50 11/06/19 22:00 26 Mechanical Ventilator 50 11/06/19 21:45 81 26 120/68 (85) 100 11/06/19 21:30 83 26 117/67 (84) 99 11/06/19 21:15 85 26 50 11/06/19 21:00 26 114/61 Mechanical Ventilator 50 11/06/19 21:00 85 26 114/61 (78) 100 11/06/19 20:45 94 21 121/54 (76) 96 11/06/19 20:30 81 26 119/70 (86) 99 11/06/19 20:00 98.8 82 26 116/67 (83) 99 11/06/19 20:00 116/67 11/06/19 20:00 26 116/67 Mechanical Ventilator 50 11/06/19 20:00 26 Mechanical Ventilator 50 11/06/19 20:00 Mechanical Ventilator 11/06/19 20:00 50 11/06/19 19:45 82 26 117/64 (81) 99 11/06/19 19:30 82 26 115/60 (78) 98 11/06/19 19:25 83 11/06/19 19:00 110/76 11/06/19 19:00 24 110/76 Mechanical Ventilator 50 11/06/19 19:00 24 Mechanical Ventilator 50 11/06/19 19:00 87 24 110/76 (87) 96 11/06/19 18:45 87 26 50 11/06/19 18:30 87 26 106/57 (73) 98 11/06/19 18:28 26 111/54 Mechanical Ventilator 50 11/06/19 18:00 92 26 119/64 (82) 86 11/06/19 18:00 111/54 11/06/19 18:00 26 111/54 Mechanical Ventilator 50 11/06/19 18:00 26 Mechanical Ventilator 50 11/06/19 17:30 92 26 107/65 (79) 87 11/06/19 17:13 120/73 11/06/19 17:00 121/72 11/06/19 17:00 26 121/72 Mechanical Ventilator 50 11/06/19 17:00 26 Mechanical Ventilator 50 11/06/19 17:00 82 26 120/73 (89) 96 11/06/19 16:46 84 26 50 11/06/19 16:30 83 25 112/63 (79) 96 11/06/19 16:00 98.8 83 26 113/63 (80) 97 11/06/19 16:00 Mechanical Ventilator 11/06/19 16:00 50 11/06/19 16:00 114/66 11/06/19 16:00 26 114/66 Mechanical Ventilator 50 11/06/19 16:00 26 Mechanical Ventilator 50 11/06/19 15:49 84 11/06/19 15:30 87 26 120/62 (81) 96 11/06/19 15:00 82 26 108/57 (74) 94 11/06/19 15:00 108/57 11/06/19 15:00 26 108/57 Mechanical Ventilator 50 11/06/19 15:00 26 Mechanical Ventilator 50 11/06/19 14:40 84 26 50 11/06/19 14:30 78 26 116/66 (83) 97 11/06/19 14:24 26 117/69 Mechanical Ventilator 50 Intake and Output 11/06/19 11/07/19 19:00 07:00 Intake Total 2797.564 ml 3227.5664 ml Output Total 2670 ml 3400 ml Balance 127.564 ml -172.4336 ml Intake IV Total 2797.564 ml 3227.5664 ml Output Urine Total 2670 ml 3400 ml Laboratory Tests 11/07/19 05:45: White Blood Count 22.8*H, Red Blood Count 3.97L, Hemoglobin 13.0L, Hematocrit 35.1L, Mean Corpuscular Volume 88, Mean Corpuscular Hemoglobin 32.8H, Mean Corpuscular Hemoglobin Concent 37.2H, Red Cell Distribution Width 10.7L, Platelet Count 221, Mean Platelet Volume 4.7L, Neutrophils (%) (Auto) , Lymphocytes (%) (Auto) , Monocytes (%) (Auto) , Eosinophils (%) (Auto) , Basophils (%) (Auto) , Differential Total Cells Counted 100, Neutrophils % ( Manual) 76H, Lymphocytes % (Manual) 13L, Monocytes % (Manual) 2, Eosinophils % ( Manual) 8H, Basophils % (Manual) 0, Band Neutrophils 1, Platelet Estimate Adequate, Platelet Morphology Normal, Anisocytosis 1+, Sodium Level 143, Potassium Level 3.5, Chloride Level 109H, Carbon Dioxide Level 27, Anion Gap 7, Blood Urea Nitrogen 7, Creatinine 0.8, Estimat Glomerular Filtration Rate > 60, Glucose Level 142H, Calcium Level 8.4L, Triglycerides Level 126, Lipase 114 11/07/19 10:32: Arterial Blood pH 7.412, Arterial Blood Partial Pressure CO2 39.6, Arterial Blood Partial Pressure O2 106.0H, Arterial Blood HCO3 24.7, Arterial Blood Oxygen Saturation 97.6, Arterial Blood Base Excess 0.1, Cj Test Positive 11/07/19 10:45: HIV (1&2) Antibody Rapid Negative Height (Feet): 6 Height (Inches): 1.00 Weight (Pounds): 181 Cardiovascular: normal rate Respiratory/Chest: rhonchi - bilaterally Edema: no edema noted Generalized Delgado Perez MD Nov 07, 2019 14:15
--- NOTE | 2019-11-07 14:30 | NUR ---
NURSE NOTES: New propofol container hung at this time, RASS remains -2, pt opens eyes when called by name for 6 sec, no distress noted. Propofol rate remains at so mcg/ kig/ min. Addendum: 11/08/19 at 0807 by Lora Pinzon RN Amendment: rate at 50 mcg/kg/min
--- NOTE | 2019-11-07 14:45 | NUR ---
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 97.5 HR 106 RR 15 B/P 113/98 AC 26 TV 500 FIO2 100% PEEP 7 PH 7.24 PCO2 64.3 PO2 55.2 HCO3 27.1 O2 SAT 82.0 NA 150 BUN 24 CR 1.4 BNP 155 URINE TOX + AMPHETAMINES CXR=Question subtle airspace opacities within the mid to lower lungs which maybe inflammatory or infectious. IS: HALDOL IV PROPOFOL IV ETOMIDATE IV IV BOLUS NS X 2 LITERS BENADRYL IV ADMITTED TO ICU@ 1999 ICU STATUS DCP PENDING HOSPITAL STAY
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
--- NOTE | 2019-11-07 16:40 | NUR ---
NURSE NOTES: Spoke with Malinda from pharmacy regarding propofol and fentanyl orders. Per Malinda, order stop dates need to be changed. order were edited and appear as "discontinued" on IV spreadsheet- however, I clarified with Malinda that it is okay to go ahead and continue charting on IV spreadsheet until container volume is finished - no need to re scan medications at this time. Will also endorse to car shifter nurse.
--- NOTE | 2019-11-07 17:14 | NUR ---
NURSE NOTES: Received order from Dr Barrett to delay weaning trial for tomorrow morning since pt remains on PEEP of 7. RT Eric notified.
--- NOTE | 2019-11-07 19:00 | NUR ---
HAND-OFF: Report given to BHAVIK Oswald. New propofol container hung at this time at unchanged rate. Pt in no acute distress. RASS remains at -[address] Barrett's order.
--- NOTE | 2019-11-07 19:31 | NUR ---
NURSE NOTES: Patient received from Lora Denson RN. Patient received slightly sedated with current RASS score of -2, eyes opens briefly for about 6-8 seconds with eye contact to voice. Patient is currently orally intubated with ETT size 7.5 and 25cm at the lower lip line. Current Vent settings are AC26, 500Tv, 55% FiO2 and peep of 7. Patient SpO2 saturations is 94% with good pleth wave form. CO2 monitoring device noted. Right now patient has Diprivan gtt infusing at 50mcg/kg/min. Fentanyl gtt at 120mcg/hr, NS at 50ml/hr and Levophed gtt at 14mcg/min with current BP at 100/54 (64). HR is 88 NSR on the monitor, bilateral radial pulses noted, right femoral pulse noted. There is an OGT and infusing Vital AF 1.2 at 10ml/hr. There is a Ibarra catheter that is anchored properly and hanging below bladder and draining via gravity, clear yellow urine. There is a Left femoral TLC that is patent, intact and asymptomatic. Dressing is dry and intact. There are PIV noted also at the L FA 20G SL and JV 22G. SCD's noted and on patient. Safety measures are in place at this time and bed alarm on and locked. Will continue to monitor.
--- NOTE | 2019-11-07 19:49 | NUR ---
NURSE NOTES: DC restraints
--- NOTE | 2019-11-07 20:00 | NUR ---
NURSE NOTES: Repositioned Oral care given Fio2 at 50% RASS score right now is -2, briefly opens eyes to voice for less that 5-7 seconds. Vitals remains stable
[2019-11-07] MEDS: Dyna-Hex 2% Top Sol 2oz TOPIC SCH (21:00)
[2019-11-07] MEDS: MAGNESIUM SULFATE IV SCH (21:00)
[2019-11-07] MEDS: FOLIC ACID IV SCH (21:00)
[2019-11-07] MEDS: Thiamine 100mg in D5W 55ml IVPB SCH (21:00)
[2019-11-07] MEDS: [UNRECOGNIZED DRUG - OTHER] IV SCH (21:00)
[2019-11-07] MEDS: MULTIVITAMIN IV SCH (21:00)
--- NOTE | 2019-11-07 21:15 | NUR ---
NURSE NOTES: Patient agitated and restless RASS score +3. Increased Fentanyl gtt to regain goal of RASS score of -2. Suctioned patient and therapeutic communication provided. titrating down Levophed gtt.
--- NOTE | 2019-11-07 22:00 | NUR ---
NURSE NOTES: Patients Spo2 in the 80s. Increased FiO2 to 60% to keep Spo2 above 92% Currently patient has a RASS score of -2. Briefly awakens to eye contact to voice for less that 5-7 seconds. BP remains stable. Pressor slowly titrating down. NSR on the monitor.
--- NOTE | 2019-11-07 23:45 | NUR ---
NURSE NOTES: Dr. Barrett at bedside. Informed him of low Spo2 and the need to increase gradually to eventually 100%. Order to increase Peep to 9 and titrate down Fio2 to maintain above 92% and ABG in the morning.
[2019-11-08] VITALS (87 sets, daily range): BP systolic 84–144; BP diastolic 46–88
--- NOTE | 2019-11-08 | NUR ---
NURSE NOTES: Patient has awaken and become agitated and restless with a RASS score of +2, Currently Diprivan is maxed out at 50mcg/kg/min and Fentanyl at 120mcg/H. Fentanyl increased to 200mcg/hr to reachieve a RASS score of -2. Bilateral soft wrist re-initiated. Fio2 at 100%. SpO2 in the low 90s. Levophed being titrated down.
[2019-11-08] MEDS: Vancomycin 1.25gm/NS Premix q24h IVPB SCH ×2 (01:09→09:42)
--- NOTE | 2019-11-08 02:00 | NUR ---
NURSE NOTES: Levophed at 4mcg/min, slowly titrating down. Patient maintains RASS score of -2, briefly opens eyes to vocal commands for about 5-7 seconds. Fentanyl remains at 200mcg/hr and Diprivan at 50mcg/kg/min. Suctioned patient. Thick tenacious secretions noted. Afebrile, cool to touch. Patients SpO2 is 95%. NAD at this time.
--- NOTE | 2019-11-08 03:30 | NUR ---
NURSE NOTES: Patients RASS score of +2. Patient is awake, agitated and restless at this time. Increased fentanyl gtt to 300mcg/hr to reattain RASS score of -2. Blood pressure is stable. HR NSR. Afebrile. Therapeutic communication. Suctioned patient, thick secretions noted.
--- NOTE | 2019-11-08 04:00 | NUR ---
NURSE NOTES: Currently patient has achieved a RASS score of -2. Briefly awakens to eye contact to voice for less that 6-8 seconds. Levophed held, blood pressure much stable now. FiO2 at 50%. SpO2 is 93%. Patient Bathed, alvarenga care provided, L wrist 20G inserted, L FA 22g inserted. Oral care and suctioned, thick tenacious secretions.
--- NOTE | 2019-11-08 05:00 | NUR ---
NURSE NOTES: Patient is doing much better and saturating above 94%. Decreased peep to 7 to see if any changes. Patient maintained SpO2 above 96% and no respiratory distress noted. Peep changed back to 7. SpO2 decreased to 45%. Patient has alot of thick tenacious secretions. Mucomyst one time ordered for 0700.
[2019-11-08] MEDS: Piperacillin/Tazobactam 3.375 GM in NS 110 ML IVPB SCH ×3 (05:38→21:30)
[2019-11-08 06:09] LABS: EOSINOPHILS % (AUTO) 5.3 % (0.0-3.0); HEMATOCRIT 34.6 % (42.0-52.0); HEMOGLOBIN 11.8 G/DL (14.2-18.0); LYMPHOCYTES % (AUTO) 10.1 % (20.0-45.0); MEAN CORPUSCULAR VOLUME 90 FL (80-99); MONOCYTES % (AUTO) 6.9 % (1.0-10.0); NEUTROPHILS % (AUTO) 76.7 % (45.0-75.0); PLATELET COUNT 205 K/UL (150-450); RED BLOOD COUNT 3.86 M/UL (4.70-6.10); WHITE BLOOD COUNT 9.5 K/UL (4.8-10.8)
[2019-11-08 06:16] LABS: ANION GAP 10 mmol/L (5-15); BLOOD UREA NITROGEN 7 mg/dL (7-18); CALCIUM 8.6 MG/DL (8.5-10.1); CARBON DIOXIDE 25 MMOL/L (21-32); CHLORIDE 111 MMOL/L (98-107); CREATININE 0.8 MG/DL (0.55-1.30); POTASSIUM 3.4 MMOL/L (3.5-5.1); SODIUM 146 MMOL/L (136-145)
--- NOTE | 2019-11-08 07:15 | NUR ---
NURSE NOTES: Pt received from Margarito RN sedated, RASS -2, opens eyes for 5-6 sec when called by name, able to squeeze my hands on command, bilat pupils equal and round 2 mm with sluggish light rxn. Bilat radial pulses 2+ and bilat dorsalis pedis pulses 2+ with palpation. Pt noted SR to cardiac rehab nurse, cap refill is less than 3 sec, pt is afebrile, extremities are warm to touch. Left hand noted ith non-pitting edema. Pt is mechanically ventilated with 7.5 ETT noted 25 cm right lip corner with settings: AC 26 TV 500 FiO2 45% Peep 7. All lung lobes noted with wheezing (Dr Barrett and RT notified, DUONEB order placed). Right lower lung noted diminished upon auscultation. Abd is soft and flat with active bowel sounds noted to all quadrants. OGT noted running vital AF 1.2 at 42 cc/hr with 50 cc gastric residuals. Ibarra noted draining tricia urine. Skin is noted intact with tattoos to upper extremities. Pt has bilat soft wrist restraints, radial pulses palpable and bilat wrist skin intact. Pt has a left femoral TLC with dry and intact dressing running fentanyl at 200 mcg/hr, and propofol at 50 mcg/kg/min. Pt also has a LFA 20g IV running D5 1/2NS with folvite, magneisum, and multivit running at 75 cc/hr. LW 20g IV noted saline locked. Bed is in lowest position, alarm on, side rails up x 3, SCDs on bilat lower extremities, call light within reach, will continue to monitor pt. Addendum: 11/08/19 at 0852 by Lora Pinzon RN Amendment: BLANCO 20g IV is running zosyn at 27.5 cc/hr
--- NOTE | 2019-11-08 07:20 | NUR ---
HAND-OFF: Report given to BHAVIK Pinzon. Pt is sleeping on the bed and no sign of acute distress noted. RASS remains -2.
[2019-11-08] MEDS ORDERED: Haloperidol Lactate 5 MG in D5W 55 ML IVPB PRN (08:15)
--- NOTE | 2019-11-08 08:20 | Pulmonolgy Critical Care Note ---
Critical Care - Asmt/Plan Problems: (1) Drug overdose (2) Encephalopathy (3) Respiratory failure (4) Substance abuse (5) Renal insufficiency (6) Hypernatremia (7) Sepsis Assessment/Plan: Continue ventilatory support/settings reviewed Titrate FiO2 and then PEEP ABG, CK Optimize pulmonary hygiene/mobilize as tolerated HHN's Wean PROPOFOL, wean FENTANYL to RASS - 2 --> PRN Versed, PRN Haldol (QTc ok) EEG and CT when able Monitor volumes and renal function, DAILY BANANA BAGS ABx: Vanco/Zosyn per ID, consider D/C VANCO given neg MRSA screen DVT Px: Hep SQ NGTF's FC CCT 35 Critical Care - Objective Last 24 Hour Vital Signs Date Time Temp Pulse Resp B/P (MAP) Pulse Ox O2 Delivery O2 Flow Rate FiO2 11/08/19 08:00 45 11/08/19 08:00 98.5 78 26 96/54 (68) 97 11/08/19 07:45 76 26 93/52 (66) 97 11/08/19 07:38 81 26 96/59 (71) 97 11/08/19 07:30 78 26 89/51 (64) 96 11/08/19 07:15 78 26 88/50 (63) 96 11/08/19 07:04 78 26 50 11/08/19 07:00 80 26 91/53 (66) 97 11/08/19 06:45 81 26 99/53 (68) 97 11/08/19 06:34 26 91/54 Mechanical Ventilator 45 11/08/19 06:33 26 93/51 Mechanical Ventilator 45 11/08/19 06:30 78 26 91/54 (66) 93 11/08/19 06:15 78 26 94/52 (66) 93 11/08/19 06:10 86 26 11/08/19 06:00 26 93/53 Mechanical Ventilator 45 11/08/19 06:00 26 Mechanical Ventilator 45 11/08/19 06:00 79 26 93/53 (66) 94 11/08/19 05:45 77 26 92/52 (65) 96 11/08/19 05:30 79 24 92/54 (67) 99 11/08/19 05:28 80 26 50 11/08/19 05:15 79 26 93/49 (64) 95 11/08/19 05:00 26 92/51 Mechanical Ventilator 50 11/08/19 05:00 26 Mechanical Ventilator 50 11/08/19 05:00 80 26 92/51 (65) 93 11/08/19 04:45 83 26 100/64 (76) 95 11/08/19 04:30 86 26 97/47 (64) 93 11/08/19 04:15 91 26 94/46 (62) 92 11/08/19 04:00 79 11/08/19 04:00 97.4 94 26 104/56 (72) 96 11/08/19 04:00 26 104/56 Mechanical Ventilator 50 11/08/19 04:00 26 Mechanical Ventilator 50 11/08/19 04:00 104/56 11/08/19 04:00 50 11/08/19 04:00 Mechanical Ventilator Mechanical Ventilator 11/08/19 03:45 95 26 100/49 (66) 96 11/08/19 03:30 78 26 101/63 (76) 96 11/08/19 03:30 26 101/63 Mechanical Ventilator 50 11/08/19 03:30 26 Mechanical Ventilator 50 11/08/19 03:15 79 26 101/61 (74) 96 11/08/19 03:00 60 11/08/19 03:00 26 97/56 Mechanical Ventilator 50 11/08/19 03:00 26 Mechanical Ventilator 50 11/08/19 03:00 97/56 11/08/19 03:00 78 26 97/56 (70) 95 11/08/19 02:45 79 26 97/55 (69) 95 11/08/19 02:42 82 24 60 11/08/19 02:30 26 94/59 Mechanical Ventilator 60 11/08/19 02:30 82 25 94/54 (67) 96 11/08/19 02:15 81 26 94/59 (71) 98 11/08/19 02:00 78 26 107/67 (80) 93 11/08/19 02:00 70 11/08/19 02:00 26 107/67 Mechanical Ventilator 60 11/08/19 02:00 26 Mechanical Ventilator 60 11/08/19 02:00 107/67 11/08/19 01:30 77 26 108/67 (81) 94 11/08/19 01:15 79 26 105/66 (79) 94 11/08/19 01:00 26 108/65 Mechanical Ventilator 80 11/08/19 01:00 26 Mechanical Ventilator 80 11/08/19 01:00 108/65 11/08/19 01:00 80 11/08/19 01:00 79 26 108/65 (79) 95 11/08/19 00:45 82 26 102/60 (74) 95 11/08/19 00:35 81 26 60 11/08/19 00:30 85 26 105/54 (71) 96 11/08/19 00:15 97 15 115/61 (79) 100 11/08/19 00:00 28 103/66 Mechanical Ventilator 100 11/08/19 00:00 26 Mechanical Ventilator 100 11/08/19 00:00 103/66 11/08/19 00:00 Mechanical Ventilator Mechanical Ventilator 11/08/19 00:00 100 11/08/19 00:00 99.1 82 26 103/66 (78) 96 11/08/19 00:00 88 11/07/19 23:45 83 26 106/61 (76) 95 11/07/19 23:30 87 23 106/64 (78) 91 11/07/19 23:15 88 26 106/64 (78) 77 11/07/19 23:00 91 27 109/62 (78) 92 11/07/19 23:00 75 11/07/19 23:00 26 109/62 Mechanical Ventilator 75 11/07/19 23:00 26 Mechanical Ventilator 75 11/07/19 23:00 109/62 11/07/19 22:45 93 25 108/59 (75) 85 11/07/19 22:40 85 26 60 11/07/19 22:30 94 25 109/53 (71) 77 11/07/19 22:15 95 25 105/52 (69) 88 11/07/19 22:01 24 Mechanical Ventilator 45 11/07/19 22:00 103 25 110/59 (76) 85 11/07/19 22:00 60 11/07/19 22:00 26 90/55 Mechanical Ventilator 50 11/07/19 22:00 110/59 11/07/19 21:45 108 23 90/55 (67) 97 11/07/19 21:45 26 Mechanical Ventilator 100 11/07/19 21:30 130 25 142/81 (101) 98 2/24/20 21:30 36 Mechanical Ventilator 100 220 21:27 81 24 45 220 21:15 79 26 114/65 (81) 98 220 21:00 76 26 102/58 (73) 97 220 21:00 26 102/58 Mechanical Ventilator 50 20 21:00 102/58 2/20 21:00 26 Mechanical Ventilator 50 20 21:00 55 220 20:45 76 26 103/58 (73) 97 2//20 20:30 76 26 102/57 (72) 96 220 20:15 77 26 101/56 (71) 96 11/07/19 20:00 50 11/07/19 20:00 98.8 78 26 98/53 (68) 95 20 20:00 26 98/53 Mechanical Ventilator 55 11/07/19 20:00 98/53 2 20:00 26 Mechanical Ventilator 50 11/07/19 20:00 82 11/07/19 20:00 Mechanical Ventilator Mechanical Ventilator 11/07/19 19:45 81 26 95/52 (66) 93 220 19:30 82 26 100/54 (69) 93 11/07/19 19:15 85 26 99/57 (71) 91 11/07/19 19:00 26 97/50 Mechanical Ventilator 55 20 19:00 97/50 220 19:00 26 90/49 Mechanical Ventilator 55 11/07/19 19:00 26 Mechanical Ventilator 55 20 19:00 87 26 90/49 (63) 89 20 18:58 55 220 18:55 84 26 45 220 18:30 99 26 105/57 (73) 85 2//20 18:15 105 25 116/63 (80) 92 220 18:00 99 21 148/100 (116) 89 220 18:00 148/100 220 18:00 26 148/100 Mechanical Ventilator 45 20 18:00 26 Mechanical Ventilator 45 20 17:45 81 26 117/73 (88) 95 220 17:30 82 26 115/72 (86) 93 11/07/19 17:15 82 26 131/86 (101) 94 11/07/19 17:00 82 20 131/82 (98) 95 11/07/19 17:00 123/82 11/07/19 17:00 26 131/82 Mechanical Ventilator 45 11/07/19 17:00 26 Mechanical Ventilator 45 11/07/19 16:53 45 11/07/19 16:45 83 26 123/82 (96) 94 11/07/19 16:35 81 26 45 11/07/19 16:30 82 25 125/83 (97) 94 11/07/19 16:30 26 Mechanical Ventilator 55 11/07/19 16:05 92 20 93/38 (56) 90 11/07/19 16:00 99.0 82 25 82/38 (53) 96 11/07/19 16:00 55 11/07/19 16:00 93/38 11/07/19 16:00 26 93/38 Mechanical Ventilator 55 11/07/19 16:00 26 Mechanical Ventilator 55 11/07/19 16:00 82 11/07/19 16:00 Mechanical Ventilator Mechanical Ventilator 11/07/19 15:30 77 26 124/77 (93) 97 11/07/19 15:00 55 11/07/19 15:00 118/73 11/07/19 15:00 26 118/73 Mechanical Ventilator 55 11/07/19 15:00 26 Mechanical Ventilator 55 11/07/19 15:00 78 26 118/73 (88) 96 11/07/19 14:55 81 26 55 11/07/19 14:30 89 26 115/67 (83) 93 11/07/19 14:30 26 109/65 Mechanical Ventilator 65 11/07/19 14:00 82 26 115/68 (84) 95 11/07/19 14:00 115/68 11/07/19 14:00 26 115/68 Mechanical Ventilator 65 11/07/19 14:00 26 Mechanical Ventilator 65 11/07/19 13:30 90 16 115/71 (86) 95 11/07/19 13:30 65 11/07/19 13:29 87 27 75 11/07/19 13:00 75 25 115/68 (84) 96 11/07/19 13:00 115/68 11/07/19 13:00 26 115/68 Mechanical Ventilator 75 11/07/19 13:00 26 Mechanical Ventilator 75 11/07/19 12:45 71 24 115/68 (84) 98 11/07/19 12:30 72 25 118/77 (91) 99 11/07/19 12:15 70 26 119/72 (88) 98 11/07/19 12:00 98.4 72 26 117/69 (85) 96 11/07/19 12:00 70 11/07/19 12:00 75 11/07/19 12:00 117/69 11/07/19 12:00 26 117/69 Mechanical Ventilator 75 11/07/19 12:00 26 Mechanical Ventilator 75 11/07/19 12:00 Mechanical Ventilator Mechanical Ventilator 11/07/19 11:45 73 26 111/66 (81) 99 11/07/19 11:45 75 11/07/19 11:30 78 26 107/59 (75) 95 11/07/19 11:25 100 11/07/19 11:22 82 26 100 11/07/19 11:15 26 Mechanical Ventilator 40 11/07/19 11:15 84 26 111/60 (77) 88 11/07/19 11:04 76 26 35 11/07/19 11:00 78 25 105/60 (75) 99 11/07/19 11:00 105/60 11/07/19 11:00 26 Mechanical Ventilator 40 11/07/19 11:00 40 11/07/19 10:59 26 110/66 40 11/07/19 10:58 25 105/60 Mechanical Ventilator 40 11/07/19 10:45 26 Mechanical Ventilator 40 11/07/19 10:45 69 26 110/66 (81) 100 11/07/19 10:30 69 26 112/68 (83) 99 11/07/19 10:30 26 Mechanical Ventilator 40 11/07/19 10:15 26 Mechanical Ventilator 40 11/07/19 10:15 67 26 121/73 (89) 100 11/07/19 10:00 126/77 11/07/19 10:00 26 126/77 Mechanical Ventilator 40 11/07/19 10:00 26 Mechanical Ventilator 40 11/07/19 10:00 66 26 126/77 (93) 99 11/07/19 09:45 65 26 121/72 (88) 99 11/07/19 09:45 26 Mechanical Ventilator 40 11/07/19 09:30 65 26 119/66 (83) 100 11/07/19 09:30 26 Mechanical Ventilator 40 11/07/19 09:15 26 Mechanical Ventilator 40 11/07/19 09:15 63 26 125/68 (87) 100 11/07/19 09:04 63 26 40 11/07/19 09:00 61 26 128/80 (96) 99 11/07/19 09:00 128/80 11/07/19 09:00 26 128/80 Mechanical Ventilator 40 11/07/19 09:00 26 Mechanical Ventilator 40 11/07/19 08:45 66 26 131/82 (98) 98 11/07/19 08:45 26 Mechanical Ventilator 40 11/07/19 08:30 60 26 126/74 (91) 97 11/07/19 08:30 131/82 11/07/19 08:30 26 Mechanical Ventilator 40 11/07/19 08:15 60 26 130/73 (92) 96 11/07/19 08:15 126/74 11/07/19 08:15 26 Mechanical Ventilator 40 Status: sedated Condition: critical HEENT: atraumatic, normocephalic Lungs: clear Heart: HR/BP stable Abdomen: soft, non-tender, active bowel sounds Extremities: no C/C/E Micro: Microbiology Date/Time Source Procedure Growth Status 11/06/19 16:45 Blood Blood Culture - Preliminary NO GROWTH AFTER 24 HOURS Resulted 11/06/19 10:27 Blood Blood Culture - Preliminary NO GROWTH AFTER 24 HOURS Resulted 11/06/19 14:29 Sputum Gram Stain - Final Complete 11/06/19 14:29 Sputum Sputum Culture - Final NO GROWTH AFTER 48 HOURS Complete 11/06/19 14:29 Indwelling Cath Urine Culture - Preliminary NO GROWTH AFTER 24 HOURS Resulted Blood Sugars: BS controlled Critical Care - Subjective ROS Limited/Unobtainable: Yes ICU Day: 5 Intubation Day: 5 Interval Events: Weaning PEEP Off NE WCt normal Prop/Fent Condition: improving IV Access: central - R fem TLC EKG Rhythm: Sinus Rhythm FI02: 45 Vent Support Breath Rate: 26 Vent Support Mode: AC Vent Tidal Volume: 500 Sputum Amount: Scant PEEP: 7.0 PIP: 39 Secretions: scant Fluids: Banana bag Drips: Fent 120 Prop 50 Tube Feeding Amount: 42 I&O: Intake and Output 11/07/19 11/08/19 19:00 07:00 Intake Total 563944.36349 ml 2513.483 ml Output Total 2660 ml 1135 ml Balance 717416.49645 ml 1378.483 ml Intake Free Water 20 ml 60 ml IV Total 222934.07241 ml 2109.483 ml Tube Feeding 60 ml 344 ml Output Urine Total 2660 ml 1135 ml Subjective: SAHRA ET-Tube: 7.5 ET Position: 25 Labs: Laboratory Tests Test 11/07/19 10:32 11/07/19 10:45 11/07/19 16:28 11/08/19 05:00 Arterial Blood pH 7.412 (7.350-7.450) Arterial Blood Partial Pressure CO2 39.6 mmHg (35.0-45.0) Arterial Blood Partial Pressure O2 106.0 mmHg (75.0-100.0) H Arterial Blood HCO3 24.7 mmol/L (22.0-26.0) Arterial Blood Oxygen Saturation 97.6 % (95-100) Arterial Blood Base Excess 0.1 (-2-2) Cj Test Positive HIV (1&2) Antibody Rapid Negative (NEGATIVE) Vancomycin Level Trough 14.5 ug/mL (5.0-12.0) H White Blood Count 9.5 K/UL (4.8-10.8) # Red Blood Count 3.86 M/UL (4.70-6.10) L Hemoglobin 11.8 G/DL (14.2-18.0) L Hematocrit 34.6 % (42.0-52.0) L Mean Corpuscular Volume 90 FL (80-99) Mean Corpuscular Hemoglobin 30.7 PG (27.0-31.0) Mean Corpuscular Hemoglobin Concent 34.2 G/DL (32.0-36.0) Red Cell Distribution Width 13.0 % (11.6-14.8) Platelet Count 205 K/UL (150-450) Mean Platelet Volume 6.0 FL (6.5-10.1) L Neutrophils (%) (Auto) 76.7 % (45.0-75.0) H Lymphocytes (%) (Auto) 10.1 % (20.0-45.0) L Monocytes (%) (Auto) 6.9 % (1.0-10.0) Eosinophils (%) (Auto) 5.3 % (0.0-3.0) H Basophils (%) (Auto) 1.0 % (0.0-2.0) Sodium Level 146 MMOL/L (136-145) H Potassium Level 3.4 MMOL/L (3.5-5.1) L Chloride Level 111 MMOL/L (98-107) H Carbon Dioxide Level 25 MMOL/L (21-32) Anion Gap 10 mmol/L (5-15) Blood Urea Nitrogen 7 mg/dL (7-18) Creatinine 0.8 MG/DL (0.55-1.30) Estimat Glomerular Filtration Rate > 60 mL/min (>60) Glucose Level 94 MG/DL (74-106) Calcium Level 8.6 MG/DL (8.5-10.1) Hola Reddy MD Nov 08, 2019 08:20
[2019-11-08] MEDS ORDERED: NS 275ml ONE (08:51)
--- NOTE | 2019-11-08 09:00 | NUR ---
NURSE NOTES: Pt currently RASS -2 (opens eyes when called by name for approx 6 sec). Pt is being weaned off of propofol per Dr Reddy's order. Propofol rate reduced to 45 mcg/kg/min at this time.
--- NOTE | 2019-11-08 09:15 | NUR ---
NURSE NOTES: Pt currently still at RASS -2 (opens eyes when called by name for approx 6 sec). Pt is being weaned off of propofol per Dr Reddy's order. Propofol rate reduced to 40 mcg/kg/min at this time.
--- NOTE | 2019-11-08 09:23 | NUR ---
RD ASSESSMENT & RECOMMENDATIONS SEE CARE ACTIVITY FOR COMPLETE ASSESSMENT DAILY ESTIMATED NEEDS: Needs based on Critical care/ 81.6kg 22-28 kcals/kg 9502-7762 total kcals 1.2-2 g protein/kg 98-163 g total protein 25-30 mL/kg 1874-1111 total fluid mLs NUTRITION DIAGNOSIS: Swallowing difficulty R/T respiratory failure as evidenced by pt orally intubated and sedated, off pressor support, on OGT feeds. CURRENT TF:Vital 1.2 @42ml /hr (PO DIET RECOMMENDATIONS: SH[employer] eval upon extubation -> regular/ texture per [employer]OLDER) ENTERAL NUTRITION RECOMMENDATIONS: Vital AF 1.2 @ 65ml/hr x 24 hrs to provide 1560ml, 1872kcal, 117g prot, 1265ml free water - Maintain Vital AF 1.2 @ 42ml/hr while weaning from propofol. -> HOB over 30 degrees -> Water flush per MD - When weaned off propofol, rec TF goal rate of 65ml/hr x24 hrs. Advance slowly 10ml/hr q4-6 hrs to goal. - Feed w/ hemodynamic stability. ADDITIONAL RECOMMENDATIONS: * Calibrated bedscale wt for accurate CBW * Monitor HD stability- NE @ 10mcg, now held * OGT feeds as above when weaned off propofol
[2019-11-08] MEDS: Haloperidol 5mg/ml Inj IM PRN ×3 (09:29→22:03)
--- NOTE | 2019-11-08 09:30 | NUR ---
NURSE NOTES: Pt suddenly became very agitated and observed kicking extremities and twisting torso in bed, 5 mg Haldol given IM in left deltoid per Dr Shirley's order. Addendum: 11/08/19 at 1116 by Lora Pinzon RN Late entry: Fentanyl drip currently being titrated up
[2019-11-08] MEDS: Pantoprazole Inj IVP SCH ×2 (09:41→21:33)
--- NOTE | 2019-11-08 09:45 | NUR ---
NURSE NOTES: Pt is now calm in bed, no acute distress noted. Addendum: 11/08/19 at 1042 by Lora Pinzon RN Late entry: DAIN Parker, pt opens eyes for longer than 10 sec
[2019-11-08] MEDS: LORazepam Inj 2mg/ml 1ml IV PRN ×5 (10:38→22:21)
--- NOTE | 2019-11-08 10:38 | NUR ---
NURSE NOTES: Pt observed with RASS +2, agitated, twisting torso and kicking legs. 1 mg IV Ativan given.
[2019-11-08] MEDS: Albuterol/Ipratropium 3ml neb HHN SCH ×4 (10:50→23:00)
--- NOTE | 2019-11-08 11:00 | Infectious Diseases Prog Note ---
Assessment/Plan Assessment/Plan IMPRESSION: Sepsis with fever, leukocytosis, tachypnea. pneumonia improving ARDS,. Acidosis, Alcohol Amphetamine abuse, Acute renal failure that is improving. RECOMMENDATION: Continue Zosyn. may discontinue vancomycin Subjective ROS Limited/Unobtainable: Yes Neurologic: Reports: other - sedated, on restraint Allergies: Coded Allergies: No Known Allergies (Unverified , 11/04/19) Objective Vital Signs Last 24 Hour Vital Signs Date Time Temp Pulse Resp B/P (MAP) Pulse Ox O2 Delivery O2 Flow Rate FiO2 11/08/19 10:45 26 Mechanical Ventilator 40 11/08/19 10:45 93 24 112/67 (82) 93 11/08/19 10:30 26 Mechanical Ventilator 40 11/08/19 10:30 94 25 98/53 (68) 93 11/08/19 10:15 26 Mechanical Ventilator 40 11/08/19 10:15 99 22 113/63 (80) 88 11/08/19 10:10 26 115/78 Mechanical Ventilator 40 11/08/19 10:00 26 113/63 Mechanical Ventilator 40 11/08/19 10:00 26 Mechanical Ventilator 40 11/08/19 10:00 117 20 115/78 (90) 90 11/08/19 09:45 26 128/87 Mechanical Ventilator 40 11/08/19 09:45 26 Mechanical Ventilator 40 11/08/19 09:45 97 24 100/58 (72) 95 11/08/19 09:30 114 21 128/72 (90) 76 11/08/19 09:30 26 100/58 Mechanical Ventilator 40 11/08/19 09:30 26 Mechanical Ventilator 40 11/08/19 09:15 26 101/64 Mechanical Ventilator 40 11/08/19 09:15 82 25 101/64 (76) 96 11/08/19 09:00 83 25 99/62 (74) 95 11/08/19 09:00 26 99/62 Mechanical Ventilator 40 11/08/19 09:00 26 Mechanical Ventilator 40 11/08/19 08:46 87 26 50 11/08/19 08:45 26 Mechanical Ventilator 40 11/08/19 08:45 86 26 102/61 (75) 96 11/08/19 08:30 84 26 109/64 (79) 98 11/08/19 08:30 26 Mechanical Ventilator 40 11/08/19 08:30 40 11/08/19 08:15 90 26 118/80 (93) 96 11/08/19 08:15 26 Mechanical Ventilator 45 11/08/19 08:00 45 11/08/19 08:00 26 96/54 Mechanical Ventilator 45 11/08/19 08:00 26 Mechanical Ventilator 45 11/08/19 08:00 98.5 78 26 96/54 (68) 97 11/08/19 08:00 77 11/08/19 08:00 Mechanical Ventilator Mechanical Ventilator 11/08/19 07:45 26 Mechanical Ventilator 45 11/08/19 07:45 76 26 93/52 (66) 97 11/08/19 07:38 81 26 96/59 (71) 97 11/08/19 07:30 26 Mechanical Ventilator 45 11/08/19 07:30 78 26 89/51 (64) 96 11/08/19 07:15 26 Mechanical Ventilator 45 11/08/19 07:15 78 26 88/50 (63) 96 11/08/19 07:04 78 26 50 11/08/19 07:00 80 26 91/53 (66) 97 11/08/19 07:00 26 91/53 Mechanical Ventilator 45 11/08/19 07:00 26 Mechanical Ventilator 45 11/08/19 06:45 81 26 99/53 (68) 97 11/08/19 06:34 26 91/54 Mechanical Ventilator 45 11/08/19 06:33 26 93/51 Mechanical Ventilator 45 11/08/19 06:30 78 26 91/54 (66) 93 11/08/19 06:15 78 26 94/52 (66) 93 11/08/19 06:10 86 26 11/08/19 06:00 26 93/53 Mechanical Ventilator 45 11/08/19 06:00 26 Mechanical Ventilator 45 11/08/19 06:00 79 26 93/53 (66) 94 11/08/19 05:45 77 26 92/52 (65) 96 11/08/19 05:30 79 24 92/54 (67) 99 11/08/19 05:28 80 26 50 11/08/19 05:15 79 26 93/49 (64) 95 11/08/19 05:00 26 92/51 Mechanical Ventilator 50 11/08/19 05:00 26 Mechanical Ventilator 50 11/08/19 05:00 80 26 92/51 (65) 93 11/08/19 04:45 83 26 100/64 (76) 95 11/08/19 04:30 86 26 97/47 (64) 93 11/08/19 04:15 91 26 94/46 (62) 92 11/08/19 04:00 79 11/08/19 04:00 97.4 94 26 104/56 (72) 96 11/08/19 04:00 26 104/56 Mechanical Ventilator 50 11/08/19 04:00 26 Mechanical Ventilator 50 11/08/19 04:00 104/56 11/08/19 04:00 50 11/08/19 04:00 Mechanical Ventilator Mechanical Ventilator 11/08/19 03:45 95 26 100/49 (66) 96 11/08/19 03:30 78 26 101/63 (76) 96 11/08/19 03:30 26 101/63 Mechanical Ventilator 50 11/08/19 03:30 26 Mechanical Ventilator 50 11/08/19 03:15 79 26 101/61 (74) 96 11/08/19 03:00 60 11/08/19 03:00 26 97/56 Mechanical Ventilator 50 11/08/19 03:00 26 Mechanical Ventilator 50 11/08/19 03:00 97/56 11/08/19 03:00 78 26 97/56 (70) 95 11/08/19 02:45 79 26 97/55 (69) 95 11/08/19 02:42 82 24 60 11/08/19 02:30 26 94/59 Mechanical Ventilator 60 11/08/19 02:30 82 25 94/54 (67) 96 11/08/19 02:15 81 26 94/59 (71) 98 11/08/19 02:00 78 26 107/67 (80) 93 11/08/19 02:00 70 11/08/19 02:00 26 107/67 Mechanical Ventilator 60 11/08/19 02:00 26 Mechanical Ventilator 60 11/08/19 02:00 107/67 11/08/19 01:30 77 26 108/67 (81) 94 11/08/19 01:15 79 26 105/66 (79) 94 11/08/19 01:00 26 108/65 Mechanical Ventilator 80 11/08/19 01:00 26 Mechanical Ventilator 80 11/08/19 01:00 108/65 11/08/19 01:00 80 11/08/19 01:00 79 26 108/65 (79) 95 11/08/19 00:45 82 26 102/60 (74) 95 11/08/19 00:35 81 26 60 11/08/19 00:30 85 26 105/54 (71) 96 11/08/19 00:15 97 15 115/61 (79) 100 11/08/19 00:00 28 103/66 Mechanical Ventilator 100 11/08/19 00:00 26 Mechanical Ventilator 100 11/08/19 00:00 103/66 11/08/19 00:00 Mechanical Ventilator Mechanical Ventilator 11/08/19 00:00 100 11/08/19 00:00 99.1 82 26 103/66 (78) 96 11/08/19 00:00 88 11/07/19 23:45 83 26 106/61 (76) 95 11/07/19 23:30 87 23 106/64 (78) 91 11/07/19 23:15 88 26 106/64 (78) 77 11/07/19 23:00 91 27 109/62 (78) 92 11/07/19 23:00 75 11/07/19 23:00 26 109/62 Mechanical Ventilator 75 11/07/19 23:00 26 Mechanical Ventilator 75 11/07/19 23:00 109/62 11/07/19 22:45 93 25 108/59 (75) 85 11/07/19 22:40 85 26 60 11/07/19 22:30 94 25 109/53 (71) 77 11/07/19 22:15 95 25 105/52 (69) 88 11/07/19 22:01 24 Mechanical Ventilator 45 11/07/19 22:00 103 25 110/59 (76) 85 11/07/19 22:00 60 11/07/19 22:00 26 90/55 Mechanical Ventilator 50 11/07/19 22:00 110/59 11/07/19 21:45 108 23 90/55 (67) 97 11/07/19 21:45 26 Mechanical Ventilator 100 11/07/19 21:30 130 25 142/81 (101) 98 11/07/19 21:30 36 Mechanical Ventilator 100 11/07/19 21:27 81 24 45 11/07/19 21:15 79 26 114/65 (81) 98 11/07/20 21:00 76 26 102/58 (73) 97 220 21:00 26 102/58 Mechanical Ventilator 50 20 21:00 102/58 20 21:00 26 Mechanical Ventilator 50 20 21:00 55 20 20:45 76 26 103/58 (73) 97 20 20:30 76 26 102/57 (72) 96 20 20:15 77 26 101/56 (71) 96 20 20:00 50 20 20:00 98.8 78 26 98/53 (68) 95 11/07/19 20:00 26 98/53 Mechanical Ventilator 55 11/07/19 20:00 98/53 11/07/19 20:00 26 Mechanical Ventilator 50 11/07/19 20:00 82 11/07/19 20:00 Mechanical Ventilator Mechanical Ventilator 11/07/19 19:45 81 26 95/52 (66) 93 11/07/19 19:30 82 26 100/54 (69) 93 11/07/19 19:15 85 26 99/57 (71) 91 11/07/19 19:00 26 97/50 Mechanical Ventilator 55 11/07/19 19:00 97/50 11/07/19 19:00 26 90/49 Mechanical Ventilator 55 11/07/19 19:00 26 Mechanical Ventilator 55 20 19:00 87 26 90/49 (63) 89 11/07/19 18:58 55 11/07/19 18:55 84 26 45 11/07/19 18:30 99 26 105/57 (73) 85 20 18:15 105 25 116/63 (80) 92 20 18:00 99 21 148/100 (116) 89 20 18:00 148/100 11/07/19 18:00 26 148/100 Mechanical Ventilator 45 11/07/19 18:00 26 Mechanical Ventilator 45 20 17:45 81 26 117/73 (88) 95 20 17:30 82 26 115/72 (86) 93 11/07/19 17:15 82 26 131/86 (101) 94 11/07/19 17:00 82 20 131/82 (98) 95 2/24/20 17:00 123/82 11/07/19 17:00 26 131/82 Mechanical Ventilator 45 11/07/19 17:00 26 Mechanical Ventilator 45 11/07/19 16:53 45 11/07/19 16:45 83 26 123/82 (96) 94 11/07/19 16:35 81 26 45 11/07/19 16:30 82 25 125/83 (97) 94 11/07/19 16:30 26 Mechanical Ventilator 55 11/07/19 16:05 92 20 93/38 (56) 90 11/07/19 16:00 99.0 82 25 82/38 (53) 96 11/07/19 16:00 55 11/07/19 16:00 93/38 11/07/19 16:00 26 93/38 Mechanical Ventilator 55 11/07/19 16:00 26 Mechanical Ventilator 55 11/07/19 16:00 82 11/07/19 16:00 Mechanical Ventilator Mechanical Ventilator 11/07/19 15:30 77 26 124/77 (93) 97 11/07/19 15:00 55 11/07/19 15:00 118/73 11/07/19 15:00 26 118/73 Mechanical Ventilator 55 11/07/19 15:00 26 Mechanical Ventilator 55 11/07/19 15:00 78 26 118/73 (88) 96 11/07/19 14:55 81 26 55 11/07/19 14:30 89 26 115/67 (83) 93 11/07/19 14:30 26 109/65 Mechanical Ventilator 65 11/07/19 14:00 82 26 115/68 (84) 95 11/07/19 14:00 115/68 11/07/19 14:00 26 115/68 Mechanical Ventilator 65 11/07/19 14:00 26 Mechanical Ventilator 65 11/07/19 13:30 90 16 115/71 (86) 95 11/07/19 13:30 65 11/07/19 13:29 87 27 75 11/07/19 13:00 75 25 115/68 (84) 96 11/07/19 13:00 115/68 11/07/19 13:00 26 115/68 Mechanical Ventilator 75 11/07/19 13:00 26 Mechanical Ventilator 75 11/07/19 12:45 71 24 115/68 (84) 98 11/07/19 12:30 72 25 118/77 (91) 99 11/07/19 12:15 70 26 119/72 (88) 98 11/07/19 12:00 98.4 72 26 117/69 (85) 96 11/07/19 12:00 70 11/07/19 12:00 75 11/07/19 12:00 117/69 11/07/19 12:00 26 117/69 Mechanical Ventilator 75 11/07/19 12:00 26 Mechanical Ventilator 75 11/07/19 12:00 Mechanical Ventilator Mechanical Ventilator 11/07/19 11:45 73 26 111/66 (81) 99 11/07/19 11:45 75 11/07/19 11:30 78 26 107/59 (75) 95 11/07/19 11:25 100 11/07/19 11:22 82 26 100 11/07/19 11:15 26 Mechanical Ventilator 40 11/07/19 11:15 84 26 111/60 (77) 88 11/07/19 11:04 76 26 35 11/07/19 11:00 78 25 105/60 (75) 99 11/07/19 11:00 105/60 11/07/19 11:00 26 Mechanical Ventilator 40 11/07/19 11:00 40 11/07/19 10:59 26 110/66 40 11/07/19 10:58 25 105/60 Mechanical Ventilator 40 Height (Feet): 6 Height (Inches): 1.00 Weight (Pounds): 176 HEENT: other - Conjunctival edema, orally intubated Respiratory/Chest: decreased breath sounds, other - on ventilator Cardiovascular: normal rate Abdomen: soft, non tender Extremities: no edema Skin: other - facial erythema Neurologic/Psychiatric: disoriented Microbiology Date/Time Source Procedure Growth Status 11/06/19 16:45 Blood Blood Culture - Preliminary NO GROWTH AFTER 24 HOURS Resulted 11/06/19 10:27 Blood Blood Culture - Preliminary NO GROWTH AFTER 24 HOURS Resulted 11/06/19 14:29 Sputum Gram Stain - Final Complete 11/06/19 14:29 Sputum Sputum Culture - Final NO GROWTH AFTER 48 HOURS Complete 11/06/19 14:29 Indwelling Cath Urine Culture - Preliminary NO GROWTH AFTER 24 HOURS Resulted Laboratory Tests Test 11/07/19 16:28 11/08/19 05:00 11/08/19 08:44 Vancomycin Level Trough 14.5 ug/mL (5.0-12.0) H White Blood Count 9.5 K/UL (4.8-10.8) # Red Blood Count 3.86 M/UL (4.70-6.10) L Hemoglobin 11.8 G/DL (14.2-18.0) L Hematocrit 34.6 % (42.0-52.0) L Mean Corpuscular Volume 90 FL (80-99) Mean Corpuscular Hemoglobin 30.7 PG (27.0-31.0) Mean Corpuscular Hemoglobin Concent 34.2 G/DL (32.0-36.0) Red Cell Distribution Width 13.0 % (11.6-14.8) Platelet Count 205 K/UL (150-450) Mean Platelet Volume 6.0 FL (6.5-10.1) L Neutrophils (%) (Auto) 76.7 % (45.0-75.0) H Lymphocytes (%) (Auto) 10.1 % (20.0-45.0) L Monocytes (%) (Auto) 6.9 % (1.0-10.0) Eosinophils (%) (Auto) 5.3 % (0.0-3.0) H Basophils (%) (Auto) 1.0 % (0.0-2.0) Sodium Level 146 MMOL/L (136-145) H Potassium Level 3.4 MMOL/L (3.5-5.1) L Chloride Level 111 MMOL/L (98-107) H Carbon Dioxide Level 25 MMOL/L (21-32) Anion Gap 10 mmol/L (5-15) Blood Urea Nitrogen 7 mg/dL (7-18) Creatinine 0.8 MG/DL (0.55-1.30) Estimat Glomerular Filtration Rate > 60 mL/min (>60) Glucose Level 94 MG/DL (74-106) Calcium Level 8.6 MG/DL (8.5-10.1) Arterial Blood pH 7.315 (7.350-7.450) Arterial Blood Partial Pressure CO2 55.0 mmHg (35.0-45.0) H Arterial Blood Partial Pressure O2 69.1 mmHg (75.0-100.0) L Arterial Blood HCO3 27.4 mmol/L (22.0-26.0) H Arterial Blood Oxygen Saturation 92.8 % (95-100) L Arterial Blood Base Excess 0.3 (-2-2) Cj Test Positive Current Medications Medications (Trade) Dose Ordered Sig/Nato Route PRN Reason Start Time Stop Time Status Last Admin Dose Admin Acetaminophen (Tylenol) 650 mg Q6H PRN ORAL Mild Pain/Temp > 100.5 11/04/19 19:30 12/04/19 19:29 11/05/19 08:27 Albumin Human 50 ml @ 50 mls/hr PRN PRN IVPB For hypotension 11/04/19 22:00 12/04/19 21:59 11/05/19 00:15 Albuterol/ Ipratropium (Albuterol/ Ipratropium) 3 ml Q4HRT HHN 11/08/19 11:00 11/13/19 10:59 11/08/19 10:50 Albuterol/ Ipratropium (Albuterol/ Ipratropium) 3 ml Q6H PRN HHN SOB/Wheezing 11/04/19 19:30 11/09/19 19:29 11/08/19 08:17 Chlorhexidine Gluconate (Catherine-Hex 2%) 1 applic DAILY@2000 TOPIC 11/05/19 20:00 12/05/19 19:59 11/07/19 21:00 Fentanyl Citrate 2500 mcg/Sodium Chloride 250 ml @ 0 mls/hr Q24H IV 11/07/19 07:00 11/12/19 00:00 11/07/19 22:01 Folic Acid 1 mg/ Magnesium Sulfate 2000 mg/ Multivitamins 10 ml/Dextrose/ Sodium Chloride 1,014.2 ml @ 75 mls/hr Q24H IV 11/04/19 21:00 12/04/19 20:59 11/07/19 21:00 Haloperidol Lactate (Haldol) 5 mg Q4H PRN IM AGITATION 11/08/19 08:27 12/08/19 08:26 11/08/19 09:29 Lorazepam (Ativan 2mg/ml 1ml) 1 mg Q2HR PRN IV Agitation 11/08/19 08:30 11/11/19 21:59 11/08/19 10:38 Norepinephrine Bitartrate 8 mg/ Dextrose 558 ml @ 0 mls/hr Q24H IV 11/05/19 13:00 12/05/19 12:59 11/07/19 17:00 Ondansetron HCl (Zofran) 4 mg Q6H PRN IVP Nausea & Vomiting 11/04/19 20:00 12/04/19 19:59 Pantoprazole (Protonix) 40 mg EVERY 12 HOURS IVP 11/04/19 21:00 12/04/19 20:59 11/08/19 09:41 Piperacillin Sod/ Tazobactam Sod 3.375 gm/Sodium Chloride 110 ml @ 27.5 mls/hr EVERY 8 HOURS IVPB 11/07/19 14:00 11/12/19 13:59 11/08/19 05:38 Propofol 100 ml @ 0 mls/hr Q24H IV 11/07/19 07:00 11/09/19 06:59 11/08/19 10:10 Sodium Chloride 500 ml @ 500 mls/hr Q1H PRN IV For hypotension (SBP<90) 11/04/19 19:30 12/04/19 19:29 Sodium Chloride 500 ml @ 999 mls/hr Q31M PRN IV For hypotension 11/04/19 22:00 12/04/19 21:59 11/05/19 00:10 Thiamine HCl 100 mg/Dextrose 56 ml @ 112 mls/hr Q24H IVPB 11/04/19 21:00 12/04/19 20:59 11/07/19 21:00 Vancomycin HCl (Vanco rx to dose) 1 ea DAILY PRN MISC Per rx protocol 11/06/19 08:30 12/06/19 08:29 Vancomycin/Sodium Chloride 275 ml @ 183.333 mls/hr Q8H IVPB 11/06/19 17:00 11/11/19 16:59 11/08/19 09:42 Caesar Perez MD Nov 08, 2019 11:00
--- NOTE | 2019-11-08 11:00 | NUR ---
NURSE NOTES: Pt now observed with RASS -2, opens eyes when called by name for 5 sec. Will resume attempts to wean off propofol at 1130.
--- NOTE | 2019-11-08 11:30 | NUR ---
NURSE NOTES: Pt currently still at RASS -2 (opens eyes when called by name for approx 5 sec). Pt is being weaned off of propofol per Dr Shirley's order. Propofol rate reduced to 35 mcg/kg/min at this time. No acute distress noted.
--- NOTE | 2019-11-08 12:00 | NUR ---
NURSE NOTES: Pt remains at RASS -2, opens eyes when called by name for 5 sec. No agitation at this time. Pt remains on fentanyl drip at 180 mcg/hr and propofol at 35 mcg/kg/min. Will continue to monitor and attempt weaning off propofol. Addendum: 11/08/19 at 1810 by Lora Pinzon RN Late entry: Oral care also provided, pt repositioned, no acute distress noted.
--- NOTE | 2019-11-08 12:56 | NUR ---
NURSE NOTES: Pt observed moving extremities, slightly agitated. 1 mg ativan given IV.
[2019-11-08] MEDS: fentaNYL Citrate 2,500 MCG in NS 200 ML IV SCH (13:21)
--- NOTE | 2019-11-08 14:35 | General Progress Note ---
Assessment/Plan Problem List: (1) Drug overdose ICD Codes: T50.901A - Poisoning by unspecified drugs, medicaments and biological substances, accidental (unintentional), initial encounter SNOMED: 10569800 (2) Encephalopathy ICD Codes: G93.40 - Encephalopathy, unspecified SNOMED: 39499031 (3) Sepsis ICD Codes: A41.9 - Sepsis, unspecified organism SNOMED: 35551294 (4) Respiratory failure ICD Codes: J96.90 - Respiratory failure, unspecified, unspecified whether with hypoxia or hypercapnia SNOMED: 472998201, 874556657 Assessment/Plan: wean as tolerated abxs TF Discussed with RN Subjective Allergies: Coded Allergies: No Known Allergies (Unverified , 11/04/19) Subjective Intubated Objective Last 24 Hour Vital Signs Date Time Temp Pulse Resp B/P (MAP) Pulse Ox O2 Delivery O2 Flow Rate FiO2 11/08/19 13:21 26 Mechanical Ventilator 40 11/08/19 13:06 87 26 40 11/08/19 12:45 93 20 119/69 (86) 98 11/08/19 12:30 94 20 113/63 (80) 98 11/08/19 12:15 26 117/64 Mechanical Ventilator 40 11/08/19 12:15 94 23 117/64 (81) 98 11/08/19 12:00 Mechanical Ventilator Mechanical Ventilator 11/08/19 12:00 96 11/08/19 12:00 98.6 94 26 111/63 (79) 98 11/08/19 12:00 26 111/68 Mechanical Ventilator 40 11/08/19 12:00 26 Mechanical Ventilator 40 11/08/19 11:45 98 26 101/59 (73) 97 11/08/19 11:45 26 101/59 Mechanical Ventilator 40 11/08/19 11:30 26 112/82 Mechanical Ventilator 40 11/08/19 11:30 99 26 104/58 (73) 96 11/08/19 11:15 93 28 40 11/08/19 11:00 94 24 101/57 (72) 99 11/08/19 11:00 26 101/57 Mechanical Ventilator 40 11/08/19 11:00 26 Non-Rebreather 40 11/08/19 10:45 26 Mechanical Ventilator 40 11/08/19 10:45 93 24 112/67 (82) 93 11/08/19 10:30 26 Mechanical Ventilator 40 11/08/19 10:30 94 25 98/53 (68) 93 11/08/19 10:15 26 Mechanical Ventilator 40 11/08/19 10:15 99 22 113/63 (80) 88 11/08/19 10:10 26 115/78 Mechanical Ventilator 40 11/08/19 10:00 26 113/63 Mechanical Ventilator 40 11/08/19 10:00 26 Mechanical Ventilator 40 11/08/19 10:00 117 20 115/78 (90) 90 11/08/19 09:45 26 128/87 Mechanical Ventilator 40 11/08/19 09:45 26 Mechanical Ventilator 40 11/08/19 09:45 97 24 100/58 (72) 95 11/08/19 09:30 114 21 128/72 (90) 76 11/08/19 09:30 26 100/58 Mechanical Ventilator 40 11/08/19 09:30 26 Mechanical Ventilator 40 11/08/19 09:15 26 101/64 Mechanical Ventilator 40 11/08/19 09:15 82 25 101/64 (76) 96 11/08/19 09:00 83 25 99/62 (74) 95 11/08/19 09:00 26 99/62 Mechanical Ventilator 40 11/08/19 09:00 26 Mechanical Ventilator 40 11/08/19 08:46 87 26 50 11/08/19 08:45 26 Mechanical Ventilator 40 11/08/19 08:45 86 26 102/61 (75) 96 11/08/19 08:30 84 26 109/64 (79) 98 11/08/19 08:30 26 Mechanical Ventilator 40 11/08/19 08:30 40 11/08/19 08:15 90 26 118/80 (93) 96 11/08/19 08:15 26 Mechanical Ventilator 45 11/08/19 08:00 45 11/08/19 08:00 26 96/54 Mechanical Ventilator 45 11/08/19 08:00 26 Mechanical Ventilator 45 11/08/19 08:00 98.5 78 26 96/54 (68) 97 11/08/19 08:00 77 11/08/19 08:00 Mechanical Ventilator Mechanical Ventilator 11/08/19 07:45 26 Mechanical Ventilator 45 11/08/19 07:45 76 26 93/52 (66) 97 11/08/19 07:38 81 26 96/59 (71) 97 11/08/19 07:30 26 Mechanical Ventilator 45 11/08/19 07:30 78 26 89/51 (64) 96 11/08/19 07:15 26 Mechanical Ventilator 45 11/08/19 07:15 78 26 88/50 (63) 96 11/08/19 07:04 78 26 50 11/08/19 07:00 80 26 91/53 (66) 97 11/08/19 07:00 26 91/53 Mechanical Ventilator 45 11/08/19 07:00 26 Mechanical Ventilator 45 11/08/19 06:45 81 26 99/53 (68) 97 11/08/19 06:34 26 91/54 Mechanical Ventilator 45 11/08/19 06:33 26 93/51 Mechanical Ventilator 45 11/08/19 06:30 78 26 91/54 (66) 93 11/08/19 06:15 78 26 94/52 (66) 93 11/08/19 06:10 86 26 11/08/19 06:00 26 93/53 Mechanical Ventilator 45 11/08/19 06:00 26 Mechanical Ventilator 45 11/08/19 06:00 79 26 93/53 (66) 94 11/08/19 05:45 77 26 92/52 (65) 96 11/08/19 05:30 79 24 92/54 (67) 99 11/08/19 05:28 80 26 50 11/08/19 05:15 79 26 93/49 (64) 95 11/08/19 05:00 26 92/51 Mechanical Ventilator 50 11/08/19 05:00 26 Mechanical Ventilator 50 11/08/19 05:00 80 26 92/51 (65) 93 11/08/19 04:45 83 26 100/64 (76) 95 11/08/19 04:30 86 26 97/47 (64) 93 11/08/19 04:15 91 26 94/46 (62) 92 11/08/19 04:00 79 11/08/19 04:00 97.4 94 26 104/56 (72) 96 11/08/19 04:00 26 104/56 Mechanical Ventilator 50 11/08/19 04:00 26 Mechanical Ventilator 50 11/08/19 04:00 104/56 11/08/19 04:00 50 11/08/19 04:00 Mechanical Ventilator Mechanical Ventilator 11/08/19 03:45 95 26 100/49 (66) 96 11/08/19 03:30 78 26 101/63 (76) 96 11/08/19 03:30 26 101/63 Mechanical Ventilator 50 11/08/19 03:30 26 Mechanical Ventilator 50 11/08/19 03:15 79 26 101/61 (74) 96 11/08/19 03:00 60 11/08/19 03:00 26 97/56 Mechanical Ventilator 50 11/08/19 03:00 26 Mechanical Ventilator 50 11/08/19 03:00 97/56 11/08/19 03:00 78 26 97/56 (70) 95 11/08/19 02:45 79 26 97/55 (69) 95 11/08/19 02:42 82 24 60 11/08/19 02:30 26 94/59 Mechanical Ventilator 60 11/08/19 02:30 82 25 94/54 (67) 96 11/08/19 02:15 81 26 94/59 (71) 98 11/08/19 02:00 78 26 107/67 (80) 93 11/08/19 02:00 70 11/08/19 02:00 26 107/67 Mechanical Ventilator 60 11/08/19 02:00 26 Mechanical Ventilator 60 11/08/19 02:00 107/67 11/08/19 01:30 77 26 108/67 (81) 94 11/08/19 01:15 79 26 105/66 (79) 94 11/08/19 01:00 26 108/65 Mechanical Ventilator 80 11/08/19 01:00 26 Mechanical Ventilator 80 11/08/19 01:00 108/65 11/08/19 01:00 80 11/08/19 01:00 79 26 108/65 (79) 95 11/08/19 00:45 82 26 102/60 (74) 95 11/08/19 00:35 81 26 60 11/08/19 00:30 85 26 105/54 (71) 96 11/08/19 00:15 97 15 115/61 (79) 100 11/08/19 00:00 28 103/66 Mechanical Ventilator 100 11/08/19 00:00 26 Mechanical Ventilator 100 11/08/19 00:00 103/66 11/08/19 00:00 Mechanical Ventilator Mechanical Ventilator 11/08/19 00:00 100 11/08/19 00:00 99.1 82 26 103/66 (78) 96 11/08/19 00:00 88 11/07/19 23:45 83 26 106/61 (76) 95 11/07/19 23:30 87 23 106/64 (78) 91 11/07/19 23:15 88 26 106/64 (78) 77 11/07/19 23:00 91 27 109/62 (78) 92 11/07/19 23:00 75 11/07/19 23:00 26 109/62 Mechanical Ventilator 75 11/07/19 23:00 26 Mechanical Ventilator 75 11/07/19 23:00 109/62 11/07/19 22:45 93 25 108/59 (75) 85 11/07/19 22:40 85 26 60 11/07/19 22:30 94 25 109/53 (71) 77 11/07/19 22:15 95 25 105/52 (69) 88 11/07/19 22:01 24 Mechanical Ventilator 45 11/07/19 22:00 103 25 110/59 (76) 85 11/07/19 22:00 60 11/07/19 22:00 26 90/55 Mechanical Ventilator 50 11/07/19 22:00 110/59 11/07/19 21:45 108 23 90/55 (67) 97 11/07/19 21:45 26 Mechanical Ventilator 100 11/07/19 21:30 130 25 142/81 (101) 98 11/07/19 21:30 36 Mechanical Ventilator 100 11/07/19 21:27 81 24 45 11/07/19 21:15 79 26 114/65 (81) 98 11/07/19 21:00 76 26 102/58 (73) 97 20 21:00 26 102/58 Mechanical Ventilator 50 11/07/19 21:00 102/58 11/07/19 21:00 26 Mechanical Ventilator 50 11/07/19 21:00 55 11/07/19 20:45 76 26 103/58 (73) 97 20 20:30 76 26 102/57 (72) 96 11/07/19 20:15 77 26 101/56 (71) 96 11/07/19 20:00 50 11/07/19 20:00 98.8 78 26 98/53 (68) 95 11/07/19 20:00 26 98/53 Mechanical Ventilator 55 20 20:00 98/53 2/20 20:00 26 Mechanical Ventilator 50 20 20:00 82 11/07/19 20:00 Mechanical Ventilator Mechanical Ventilator 11/07/19 19:45 81 26 95/52 (66) 93 11/07/19 19:30 82 26 100/54 (69) 93 11/07/19 19:15 85 26 99/57 (71) 91 11/07/19 19:00 26 97/50 Mechanical Ventilator 55 20 19:00 97/50 11/07/20 19:00 26 90/49 Mechanical Ventilator 55 11/07/19 19:00 26 Mechanical Ventilator 55 11/07/19 19:00 87 26 90/49 (63) 89 11/07/19 18:58 55 11/07/19 18:55 84 26 45 11/07/19 18:30 99 26 105/57 (73) 85 11/07/19 18:15 105 25 116/63 (80) 92 11/07/19 18:00 99 21 148/100 (116) 89 11/07/19 18:00 148/100 11/07/19 18:00 26 148/100 Mechanical Ventilator 45 11/07/19 18:00 26 Mechanical Ventilator 45 11/07/19 17:45 81 26 117/73 (88) 95 11/07/19 17:30 82 26 115/72 (86) 93 11/07/19 17:15 82 26 131/86 (101) 94 11/07/19 17:00 82 20 131/82 (98) 95 11/07/19 17:00 123/82 11/07/19 17:00 26 131/82 Mechanical Ventilator 45 11/07/19 17:00 26 Mechanical Ventilator 45 20 16:53 45 11/07/20 16:45 83 26 123/82 (96) 94 11/07/19 16:35 81 26 45 20 16:30 82 25 125/83 (97) 94 20 16:30 26 Mechanical Ventilator 55 20 16:05 92 20 93/38 (56) 90 11/07/19 16:00 99.0 82 25 82/38 (53) 96 11/07/19 16:00 55 11/07/19 16:00 93/38 11/07/19 16:00 26 93/38 Mechanical Ventilator 55 11/07/19 16:00 26 Mechanical Ventilator 55 11/07/19 16:00 82 11/07/19 16:00 Mechanical Ventilator Mechanical Ventilator 11/07/19 15:30 77 26 124/77 (93) 97 11/07/19 15:00 55 11/07/19 15:00 118/73 11/07/19 15:00 26 118/73 Mechanical Ventilator 55 11/07/19 15:00 26 Mechanical Ventilator 55 11/07/19 15:00 78 26 118/73 (88) 96 11/07/19 14:55 81 26 55 Intake and Output 11/07/19 11/08/19 19:00 07:00 Intake Total 638780.22441 ml 2645.98828 ml Output Total 2660 ml 1135 ml Balance 490113.71410 ml 1510.84749 ml Intake Free Water 20 ml 60 ml IV Total 086533.11546 ml 2241.86116 ml Tube Feeding 60 ml 344 ml Output Urine Total 2660 ml 1135 ml Laboratory Tests 11/07/19 16:28: Vancomycin Level Trough 14.5H 11/08/19 05:00: White Blood Count 9.5#, Red Blood Count 3.86L, Hemoglobin 11.8L, Hematocrit 34.6L, Mean Corpuscular Volume 90, Mean Corpuscular Hemoglobin 30.7, Mean Corpuscular Hemoglobin Concent 34.2, Red Cell Distribution Width 13.0, Platelet Count 205, Mean Platelet Volume 6.0L, Neutrophils (%) (Auto) 76.7H, Lymphocytes (%) (Auto) 10.1L, Monocytes (%) (Auto) 6.9, Eosinophils (%) (Auto) 5.3H, Basophils (%) (Auto) 1.0, Sodium Level 146H, Potassium Level 3.4L, Chloride Level 111H, Carbon Dioxide Level 25, Anion Gap 10, Blood Urea Nitrogen 7, Creatinine 0.8, Estimat Glomerular Filtration Rate > 60, Glucose Level 94, Calcium Level 8.6 11/08/19 08:44: Arterial Blood pH 7.315L, Arterial Blood Partial Pressure CO2 55.0H, Arterial Blood Partial Pressure O2 69.1L, Arterial Blood HCO3 27.4H, Arterial Blood Oxygen Saturation 92.8L, Arterial Blood Base Excess 0.3, Cj Test Positive Height (Feet): 6 Height (Inches): 1.00 Weight (Pounds): 176 Cardiovascular: normal rate Respiratory/Chest: rhonchi - bilaterally Edema: no edema noted Generalized Delgado Perez MD Nov 08, 2019 14:35
--- NOTE | 2019-11-08 16:00 | NUR ---
NURSE NOTES: Oral care provided, pt repositioned, no acute distress noted.
--- NOTE | 2019-11-08 17:19 | NUR ---
DRY KILN OPERATOR NOTE BRANDIN attempted to meet w/ pt for the assessment. However, pt was sleeping d/t IV Ativan. BRANDIN will attempt again. Signed: 11/08/19 at 1719 by PATRICK GHOTRA <Co-Signature Required>
--- NOTE | 2019-11-08 17:32 | NUR ---
NURSE NOTES: Spoke with Dr Delgado Perez regarding pt's urine appearance of dark tricia, UA ordered and sent down to lab for processing.
--- NOTE | 2019-11-08 17:47 | NUR ---
NURSE NOTES: Pt noted agitated, moving extremities and twisting torso. 1 mg ativan given IV and 5mg Haldol IM in right deltoid.
--- NOTE | 2019-11-08 18:00 | NUR ---
NURSE NOTES: Pt now observed with RASS -2, opens eyes for 6 sec when called by name. Propofol drip reduced to 30 mcg/kg/min. Continuing efforts to wean pt off propofol drip. Pt in no acute distress at this time.
--- NOTE | 2019-11-08 18:30 | NUR ---
NURSE NOTES: Pt now observed with RASS -2, opens eyes for 5 sec when called by name. Propofol drip reduced to 25 mcg/kg/min. Continuing efforts to wean pt off propofol drip. Pt in no acute distress at this time.
--- NOTE | 2019-11-08 18:45 | NUR ---
NURSE NOTES: Pt observed with RASS -2, opens eyes for 5 sec when called by name. Propofol drip reduced to 20 mcg/kg/min. Continuing efforts to wean pt off propofol drip. Pt in no acute distress at this time.
[2019-11-08 18:53] LABS: APPEARANCE,URINE CLEAR; BILIRUBIN, URINE NEGATIVE (NEGATIVE); COLOR,URINE BROWN; GLUCOSE, URINE (UA) NEGATIVE (NEGATIVE); KETONES,URINE 3+ (NEGATIVE); LEUKOCYTE ESTERASE ,URINE 1+ (NEGATIVE); NITRITE,URINE NEGATIVE (NEGATIVE); PH,URINE 5 (4.5-8.0); PROTEIN,URINE 2+ (NEGATIVE); UROBILINOGEN,URINE 4 MG/DL (0.0-1.0)
--- NOTE | 2019-11-08 19:00 | NUR ---
HAND-OFF: Report given to BHAVIK Oswald and BHAVIK Tyler. Pt in no acute distress. Propofol drip rate now at 20 mcg/kg/min and fentanyl at 180 mcg/hr. Endorsed to BHAVIK Oswald to follow up with Dr. Natarajan and Trey Perez regarding UA results. Also endorsed to continue charting RASS and VS q15min for 1 hour after titrating propofol drip. Darek made aware that last time drip was titrated was at 1845.
--- NOTE | 2019-11-08 19:15 | NUR ---
NURSE NOTES: Pt received from BHAVIK Paulino. Patient sedated, RASS -2, opens eyes for 5-6 sec when called by name, able to squeeze my hands on command, bilat pupils equally round 2 mm but sluggish rxn. Pt NSR to radiation monitor, cap refill is less than 3 sec, pt is afebrile, extremities are warm to touch. Bialteral upper extremities non-pitting edema. Pt is mechanically ventilated with 7.5 ETT noted 25 cm right lip corner with settings: AC 26 TV 500 FiO2 45% Peep 7. All lung lobes noted with wheezing. Right lower lung noted diminished upon auscultation. Abd is soft and flat with active bowel sounds noted to all quadrants. OGT noted running vital AF 1.2 at 42 cc/hr. Ibarra noted draining tricia urine. Skin is noted intact with tattoos to upper extremities. Pt has bilat soft wrist restraints, radial pulses palpable and bilat wrist skin intact. Pt has a left femoral TLC with dry and intact dressing running fentanyl at 180 mcg/hr, and propofol at 20 mcg/kg/min. Pt also has a LFA 20g IV running D5 1/2NS with folvite, magneisum, and multivit running at 75 cc/hr. LW 20g IV noted saline locked. Bed is in lowest position, alarm on, side rails up x 3, SCDs on bilat lower extremities, call light within reach, will continue to monitor pt.
[2019-11-08] MEDS: Dyna-Hex 2% Top Sol 2oz TOPIC SCH (19:59)
--- NOTE | 2019-11-08 20:00 | NUR ---
NURSE NOTES: Attempting to wean off Diprivan, Diprivan decreased to 10mcg. RASS -1 drowsy. Increased Fentanyl to 230mcg/hr. Gave Ativan 1mg IVP. provided oral care and repositioned. VSS remain stable, afebrile at 99.1.
--- NOTE | 2019-11-08 21:00 | NUR ---
NURSE NOTES: Attempting to wean off Diprivan, Diprivan now at 5mcg. RASS -1. not fully alert but sustains awakening to voice for 15 seconds. Fentanyl was increased to 300mcg/hr. attempting to reach score of -2 RASS. Approximately 100mL of fentanyl remains in bag. VSS, pulses noted, Patient suctioned. will continue to monitor.
--- NOTE | 2019-11-08 21:15 | NUR ---
NURSE NOTES: Held Diprivan drip and will use Fentanyl drip to achieve RASS goal -2. Approximately 30cc Diprivan left in bottle, will waste appropriately.
--- NOTE | 2019-11-08 21:15 | NUR ---
Discontinued Propofol. VSS and patient afebrile. Fentanyl used to achieve RASS -2. will continue to monitor.
[2019-11-08] MEDS: MAGNESIUM SULFATE IV SCH (21:28)
[2019-11-08] MEDS: Thiamine 100mg in D5W 55ml IVPB SCH (21:28)
[2019-11-08] MEDS: MULTIVITAMIN IV SCH (21:28)
[2019-11-08] MEDS: [UNRECOGNIZED DRUG - OTHER] IV SCH (21:28)
[2019-11-08] MEDS: FOLIC ACID IV SCH (21:28)
--- NOTE | 2019-11-08 21:30 | NUR ---
NURSE NOTES: Increased fentanyl to 320mcg/hr. RASS -1. attempting to achieve goal of RASS -2.
--- NOTE | 2019-11-08 22:00 | NUR ---
NURSE NOTES: Patient RASS +1. restless and agitated. increased fentany to 400mcg. in addition, gave haldol 5mg IM. HR 126 ST. BP stable. suctioned patient, SPO2 100%, RR 30.
--- NOTE | 2019-11-08 23:00 | NUR ---
NURSE NOTES: patient more calm. RASS score not yet achieved, current RASS -1. opens eyes for 8-12 seconds. fentanyl still at 400mcg. Ativan 1mg given earlier at 2221. BP stable. SPO2 98%. HR 127, ST.
[2019-11-09] VITALS (66 sets, daily range): BP systolic 95–153; BP diastolic 50–100
--- NOTE | 2019-11-09 | NUR ---
NURSE NOTES: Reached goal of RASS -2. briefly awakened with eye contact and voice for 8-10seconds. Fentanyl drip at 400mcg. will try to taper if condition allows. Afebrile, cool to touch. BP stable. HR 95, NSR. Provided oral care. Released restraints for passive ROM. pulses noted.
[2019-11-09] MEDS: fentaNYL Citrate 2,500 MCG in NS 200 ML IV SCH ×2 (00:41→10:34)
[2019-11-09] MEDS: LORazepam Inj 2mg/ml 1ml IV PRN ×2 (00:46→02:56)
--- NOTE | 2019-11-09 00:46 | NUR ---
NURSE NOTES: Administered Ativan 1mg IVP to maintain RASS -2. Fentanyl drip at 400mcg. VSS. FiO2 40%. SPO2 98%.
[2019-11-09] MEDS: Haloperidol 5mg/ml Inj IM PRN ×3 (02:13→22:44)
--- NOTE | 2019-11-09 02:13 | NUR ---
NURSE NOTES: patient is restless and agitated. increased fentanyl to 350mg. In addition Haldol 5mg IM was administered to assist in reaching RASS -2. Suctioned patient. patient noted to have thick tenacious secretions. patient lavaged. BP remains stable. will continue to monitor.
[2019-11-09] MEDS: Albuterol/Ipratropium 3ml neb HHN SCH ×6 (02:54→23:32)
--- NOTE | 2019-11-09 02:56 | NUR ---
NURSE NOTES: Administered Ativan 1mg IVP to help achieve goal of RASS -2. Fentanyl remains at 350mcg. VSS. Afebrile.
--- NOTE | 2019-11-09 04:00 | NUR ---
NURSE NOTES: Decreased Fentanyl drip to 200mcg. Patient is maintaining RASS -2. VSS. SPO2 100%. Opens eyes to vocal commands 5-8 seconds.
--- NOTE | 2019-11-09 04:45 | NUR ---
NURSE NOTES: Patient spongebath given. Oral and alvarenga catheter care given. Blood drawn and sent to Lab. Thick tenacious secretions noted. Patient Lavaged. Patient became more agitated with RASS +2. Increased fentanyl drip to 350mcg to achieve RASS -2. will continue to monitor.
--- NOTE | 2019-11-09 05:30 | NUR ---
NURSE NOTES: Decreased Fentanyl drip to 250mcg. Patient is maintaining RASS -2. VSS. SPO2 100%. Opens eyes to vocal commands 5-8 seconds. Patient remains hemodynamically stable, repositioned.
[2019-11-09 06:00] LABS: BASOPHILS % (AUTO) 0.8 % (0.0-2.0); EOSINOPHILS % (AUTO) 2.9 % (0.0-3.0); HEMATOCRIT 33.9 % (42.0-52.0); HEMOGLOBIN 11.9 G/DL (14.2-18.0); LYMPHOCYTES % (AUTO) 8.2 % (20.0-45.0); MEAN CORPUSCULAR VOLUME 89 FL (80-99); MONOCYTES % (AUTO) 11.9 % (1.0-10.0); NEUTROPHILS % (AUTO) 76.1 % (45.0-75.0); PLATELET COUNT 198 K/UL (150-450); RED BLOOD COUNT 3.81 M/UL (4.70-6.10); RED CELL DISTRIBUTION WIDTH 11.1 % (11.6-14.8); WHITE BLOOD COUNT 7.1 K/UL (4.8-10.8)
[2019-11-09] MEDS: Piperacillin/Tazobactam 3.375 GM in NS 110 ML IVPB SCH ×3 (06:10→22:30)
[2019-11-09 07:03] LABS: ANION GAP 12 mmol/L (5-15); BLOOD UREA NITROGEN 10 mg/dL (7-18); CALCIUM 8.5 MG/DL (8.5-10.1); CARBON DIOXIDE 26 MMOL/L (21-32); CHLORIDE 109 MMOL/L (98-107); CREATININE 0.7 MG/DL (0.55-1.30); POTASSIUM 3.7 MMOL/L (3.5-5.1); SODIUM 147 MMOL/L (136-145)
--- NOTE | 2019-11-09 07:08 | NUR ---
NURSE NOTES: Patient is maintaining RASS -2. VSS. SPO2 100%. Opens eyes to vocal commands 5-8 seconds. Patient remains hemodynamically stable.
--- NOTE | 2019-11-09 07:09 | NUR ---
HAND-OFF: Report given to Alessandro GUTIERRES.
--- NOTE | 2019-11-09 07:10 | NUR ---
NURSE NOTES: Received patient from Darek RN/ RN. Patient is sedated, RASS -2. Sinus Rhythm on the Heart Monitor, HR 84. Receiving oxygen via ET tube 7.5 25cm left side of the lip line, vent settings: AC 24, TV 500, FiO2 400%, PEEP 7. OGT is intact and receiving Vital AF at 40cc/hr. IV site is Left AC 20g and Left Wrist 20g, patent and intact. Left Femoral TLC receiving Fentanyl at 250mcg/hr, Folvite, Magnesium Sulfate, Multivitamin in D5 1/2NS at 75cc/hr. Bed is locked, placed in lowest position, side rails up x3, bed alarm on, call light within reach. Will continue to monitor.
--- NOTE | 2019-11-09 08:24 | NUR ---
NURSE NOTES: At 0800 on assessment, patient's RASS score was -3, patient responds to voice, no eye contact. Decreased Fentanyl drip to 240mcg/hr. On reassessment at 0815, RASS score of -2 achieved, patient opens eyes and gives eye contact for less than 5 seconds. Will continue to monitor.
[2019-11-09] MEDS: Pantoprazole Inj IVP SCH ×2 (08:53→21:04)
--- NOTE | 2019-11-09 09:00 | NUR ---
NURSE NOTES: Patient remains sedated in bed, RASS score of -2 maintained. Responds to voice, turns head on command and holds eye contact for less than 4 seconds. No facial grimace at this time, no acute distress. Will continue to monitor.
--- NOTE | 2019-11-09 09:11 | General Progress Note ---
Assessment/Plan Problem List: (1) Drug overdose ICD Codes: T50.901A - Poisoning by unspecified drugs, medicaments and biological substances, accidental (unintentional), initial encounter SNOMED: 18832983 (2) Encephalopathy ICD Codes: G93.40 - Encephalopathy, unspecified SNOMED: 43096265 (3) Sepsis ICD Codes: A41.9 - Sepsis, unspecified organism SNOMED: 84236500 (4) Respiratory failure ICD Codes: J96.90 - Respiratory failure, unspecified, unspecified whether with hypoxia or hypercapnia SNOMED: 916073342, 011450032 Assessment/Plan: wean as tolerated off Propofol abxs TF Discussed with RN Subjective Allergies: Coded Allergies: No Known Allergies (Unverified , 11/04/19) Subjective Intubated Objective Last 24 Hour Vital Signs Date Time Temp Pulse Resp B/P (MAP) Pulse Ox O2 Delivery O2 Flow Rate FiO2 11/09/19 09:00 92 25 124/73 (90) 100 11/09/19 08:49 93 26 100 Mechanical Ventilator 40 83 26 40 11/09/19 08:45 93 17 120/82 (95) 100 11/09/19 08:30 86 26 105/72 (83) 100 11/09/19 08:15 86 26 112/71 (85) 100 11/09/19 08:00 26 Mechanical Ventilator 40 11/09/19 08:00 98.4 84 26 111/72 (85) 100 11/09/19 08:00 40 11/09/19 08:00 Mechanical Ventilator Mechanical Ventilator 11/09/19 07:58 84 11/09/19 07:30 84 26 106/64 (78) 100 11/09/19 07:15 84 26 100 Mechanical Ventilator 40 83 26 40 11/09/19 07:00 26 Mechanical Ventilator 40 11/09/19 07:00 84 25 97/56 (70) 98 11/09/19 06:45 26 Mechanical Ventilator 40 11/09/19 06:45 86 26 97/54 (68) 95 11/09/19 06:30 85 26 11/09/19 06:30 26 Mechanical Ventilator 40 11/09/19 06:30 89 25 110/65 (80) 99 11/09/19 06:15 26 Mechanical Ventilator 40 11/09/19 06:15 89 26 98/52 (67) 99 11/09/19 06:00 26 Mechanical Ventilator 40 11/09/19 06:00 90 26 103/54 (70) 100 11/09/19 05:45 93 24 108/73 (85) 100 11/09/19 05:45 26 Mechanical Ventilator 40 11/09/19 05:30 91 23 106/60 (75) 100 11/09/19 05:30 26 Mechanical Ventilator 40 11/09/19 05:15 92 26 95/57 (70) 100 11/09/19 05:15 26 Mechanical Ventilator 40 11/09/19 05:15 92 26 100 Mechanical Ventilator 50 100 26 50 11/09/19 05:00 93 26 97/50 (66) 99 11/09/19 05:00 26 Mechanical Ventilator 40 11/09/19 04:45 30 Mechanical Ventilator 40 11/09/19 04:45 94 25 107/53 (71) 11/09/19 04:30 26 Mechanical Ventilator 40 11/09/19 04:30 95 26 100/55 (70) 11/09/19 04:15 97 26 114/62 (79) 11/09/19 04:15 26 Mechanical Ventilator 40 11/09/19 04:00 97.9 113 25 145/80 (101) 11/09/19 04:00 26 Mechanical Ventilator 40 11/09/19 04:00 Mechanical Ventilator Mechanical Ventilator 11/09/19 04:00 100 11/09/19 04:00 40 11/09/19 03:45 100 26 119/73 (88) 11/09/19 03:45 26 Mechanical Ventilator 40 11/09/19 03:30 26 Mechanical Ventilator 40 11/09/19 03:30 100 26 123/72 (89) 11/09/19 03:15 98 26 124/79 (94) 11/09/19 03:15 26 Mechanical Ventilator 40 11/09/19 03:00 26 Mechanical Ventilator 40 11/09/19 03:00 103 24 123/75 (91) 11/09/19 02:59 100 26 100 Mechanical Ventilator 50 100 26 50 11/09/19 02:45 107 25 124/75 (91) 99 11/09/19 02:45 26 Mechanical Ventilator 40 11/09/19 02:30 27 Mechanical Ventilator 40 11/09/19 02:15 36 Mechanical Ventilator 40 11/09/19 02:15 113 29 152/100 (117) 81 2/26/20 02:00 26 Mechanical Ventilator 40 11/09/19 02:00 123 28 141/78 (99) 89 11/09/19 01:45 26 Mechanical Ventilator 40 11/09/19 01:45 139 31 146/67 (93) 89 11/09/19 01:30 101 21 138/93 (108) 100 11/09/19 01:30 26 Mechanical Ventilator 40 11/09/19 01:15 93 26 127/80 (96) 100 11/09/19 01:15 26 Mechanical Ventilator 40 11/09/19 01:10 105 26 50 11/09/19 01:00 26 Mechanical Ventilator 40 11/09/19 01:00 92 26 126/79 (95) 99 11/09/19 00:45 93 26 128/87 (101) 99 11/09/19 00:41 26 Mechanical Ventilator 40 11/09/19 00:30 26 Mechanical Ventilator 40 11/09/19 00:30 93 26 119/79 (92) 100 11/09/19 00:15 97 26 119/76 (90) 99 11/09/19 00:15 26 Mechanical Ventilator 40 11/09/19 00:00 103 26 126/82 (97) 98 11/09/19 00:00 40 11/09/19 00:00 97 11/09/19 00:00 26 Mechanical Ventilator 40 11/09/19 00:00 Mechanical Ventilator Mechanical Ventilator 11/08/19 23:45 108 27 125/74 (91) 92 11/08/19 23:45 26 Mechanical Ventilator 40 11/08/19 23:30 116 28 128/65 (86) 93 11/08/19 23:30 26 Mechanical Ventilator 40 11/08/19 23:15 121 27 117/75 (89) 87 11/08/19 23:15 26 Mechanical Ventilator 40 11/08/19 23:00 127 27 144/76 (98) 86 11/08/19 23:00 26 Mechanical Ventilator 40 11/08/19 22:46 104 29 40 11/08/19 22:45 127 29 132/71 (91) 85 11/08/19 22:45 28 Mechanical Ventilator 40 11/08/19 22:30 130 32 126/88 (101) 84 11/08/19 22:30 24 Mechanical Ventilator 40 11/08/19 22:15 36 Mechanical Ventilator 40 11/08/19 22:15 123 19 115/71 (86) 91 11/08/19 22:00 36 Mechanical Ventilator 40 11/08/19 22:00 107 15 129/67 (87) 100 11/08/19 21:45 30 Mechanical Ventilator 40 11/08/19 21:45 97 25 103/76 (85) 100 11/08/19 21:30 29 Mechanical Ventilator 40 11/08/19 21:30 26 Mechanical Ventilator 40 11/08/19 21:30 36 Mechanical Ventilator 40 11/08/19 21:30 102 25 102/59 (73) 98 11/08/19 21:15 110 25 84/54 (64) 93 20 21:15 26 Mechanical Ventilator 40 11/08/19 21:00 137 28 125/75 (92) 84 11/08/19 21:00 30 162/76 Mechanical Ventilator 40 11/08/19 21:00 26 Mechanical Ventilator 40 11/08/19 20:50 102 30 40 11/08/19 20:45 96 26 100/58 (72) 94 11/08/19 20:45 26 100/58 Mechanical Ventilator 40 11/08/19 20:45 26 Mechanical Ventilator 40 11/08/19 20:30 26 94/50 Mechanical Ventilator 40 11/08/19 20:30 26 Mechanical Ventilator 26 11/08/19 20:30 98 26 94/50 (65) 94 11/08/ 20:15 104 24 102/56 (71) 91 11/08/19 20:15 26 102/56 Mechanical Ventilator 40 11/08/19 20:15 26 Mechanical Ventilator 40 11/08/19 20:00 40 11/08/19 20:00 Mechanical Ventilator Mechanical Ventilator 11/08/19 20:00 100 11/08/19 20:00 26 100/56 Mechanical Ventilator 40 11/08/19 20:00 26 Mechanical Ventilator 40 11/08/19 20:00 102 26 100/58 (72) 96 11/08/19 19:45 26 111/67 Mechanical Ventilator 40 20 19:45 26 Mechanical Ventilator 40 11/08/19 19:45 100 26 109/69 (82) 95 11/08/19 19:30 26 108/65 Mechanical Ventilator 40 11/08/19 19:30 26 Mechanical Ventilator 40 2/25/20 19:30 99.1 100 26 111/67 (82) 94 11/08/19 19:15 26 111/67 Mechanical Ventilator 40 11/08/19 19:15 26 Mechanical Ventilator 40 11/08/19 19:00 99 26 115/63 (80) 97 11/08/19 19:00 26 115/63 Mechanical Ventilator 40 11/08/19 19:00 26 Mechanical Ventilator 40 11/08/19 18:45 26 104/58 Mechanical Ventilator 40 11/08/19 18:45 109 29 40 11/08/19 18:45 99 26 104/58 (73) 97 11/08/19 18:30 26 102/55 Mechanical Ventilator 40 11/08/19 18:30 101 26 102/55 (71) 97 11/08/19 18:15 26 116/60 Mechanical Ventilator 40 11/08/19 18:15 103 26 116/60 (78) 97 11/08/19 18:00 104 26 104/60 (75) 97 11/08/19 18:00 26 104/60 Mechanical Ventilator 40 11/08/19 18:00 26 Mechanical Ventilator 40 11/08/19 17:30 93 26 107/65 (79) 100 11/08/19 17:20 117 33 40 11/08/19 17:00 26 108/64 Mechanical Ventilator 40 11/08/19 17:00 26 Mechanical Ventilator 40 11/08/19 17:00 95 26 108/64 (79) 100 11/08/19 16:30 94 26 106/67 (80) 100 11/08/19 16:00 Mechanical Ventilator Mechanical Ventilator 11/08/19 16:00 97.8 94 26 111/63 (79) 100 11/08/19 16:00 40 11/08/19 16:00 26 111/63 Mechanical Ventilator 40 11/08/19 16:00 26 Mechanical Ventilator 40 11/08/19 16:00 96 11/08/19 15:30 94 26 109/58 (75) 100 11/08/19 15:00 26 100/66 Mechanical Ventilator 40 11/08/19 15:00 26 Mechanical Ventilator 40 11/08/19 15:00 91 26 100/66 (77) 100 11/08/19 14:35 95 26 40 11/08/19 14:30 90 26 100/66 (77) 100 11/08/19 14:15 91 26 120/79 (93) 100 11/08/19 14:00 93 26 107/64 (78) 99 11/08/19 14:00 26 107/64 Mechanical Ventilator 40 11/08/19 14:00 26 Mechanical Ventilator 40 11/08/19 13:45 99 24 93/52 (66) 94 11/08/19 13:30 102 22 126/88 (101) 97 11/08/19 13:21 26 Mechanical Ventilator 40 11/08/19 13:15 101 21 127/77 (94) 96 11/08/19 13:06 87 26 40 11/08/19 13:00 26 118/69 Mechanical Ventilator 40 11/08/19 13:00 26 Mechanical Ventilator 40 11/08/19 13:00 100 20 118/69 (85) 96 11/08/19 12:45 93 20 119/69 (86) 98 11/08/19 12:30 94 20 113/63 (80) 98 11/08/19 12:15 26 117/64 Mechanical Ventilator 40 11/08/19 12:15 94 23 117/64 (81) 98 11/08/19 12:00 Mechanical Ventilator Mechanical Ventilator 11/08/19 12:00 96 11/08/19 12:00 98.6 94 26 111/63 (79) 98 11/08/19 12:00 26 111/68 Mechanical Ventilator 40 11/08/19 12:00 26 Mechanical Ventilator 40 11/08/19 11:45 98 26 101/59 (73) 97 11/08/19 11:45 26 101/59 Mechanical Ventilator 40 11/08/19 11:30 26 112/82 Mechanical Ventilator 40 11/08/19 11:30 99 26 104/58 (73) 96 11/08/19 11:15 93 28 40 11/08/19 11:00 94 24 101/57 (72) 99 11/08/19 11:00 26 101/57 Mechanical Ventilator 40 11/08/19 11:00 26 Non-Rebreather 40 11/08/19 10:45 26 Mechanical Ventilator 40 11/08/19 10:45 93 24 112/67 (82) 93 11/08/19 10:30 26 Mechanical Ventilator 40 11/08/19 10:30 94 25 98/53 (68) 93 11/08/19 10:15 26 Mechanical Ventilator 40 11/08/19 10:15 99 22 113/63 (80) 88 11/08/19 10:10 26 115/78 Mechanical Ventilator 40 11/08/19 10:00 26 113/63 Mechanical Ventilator 40 11/08/19 10:00 26 Mechanical Ventilator 40 11/08/19 10:00 117 20 115/78 (90) 90 11/08/19 09:45 26 128/87 Mechanical Ventilator 40 11/08/19 09:45 26 Mechanical Ventilator 40 11/08/19 09:45 97 24 100/58 (72) 95 11/08/19 09:30 114 21 128/72 (90) 76 11/08/19 09:30 26 100/58 Mechanical Ventilator 40 11/08/19 09:30 26 Mechanical Ventilator 40 11/08/19 09:15 26 101/64 Mechanical Ventilator 40 11/08/19 09:15 82 25 101/64 (76) 96 Intake and Output 11/08/19 11/09/19 19:00 07:00 Intake Total 1611.64794 ml 1681.592 ml Output Total 885 ml 585 ml Balance 726.54678 ml 1096.592 ml Intake Free Water 20 ml IV Total 1087.16040 ml 1177.592 ml Tube Feeding 504 ml 504 ml Output Urine Total 885 ml 585 ml Laboratory Tests 11/08/19 17:30: Urine Color Brown, Urine Appearance Clear, Urine pH 5, Urine Specific [place] 1.020, Urine Protein 2+H, Urine Glucose (UA) Negative, Urine Ketones 3+H, Urine Blood Negative, Urine Nitrite Negative, Urine Bilirubin Negative, Urine Urobilinogen 4H, Urine Leukocyte Esterase 1+H, Urine RBC 0-2H, Urine WBC 0-2, Urine Squamous Epithelial Cells Occasional, Urine Bacteria Few 11/09/19 04:30: White Blood Count 7.1, Red Blood Count 3.81L, Hemoglobin 11.9L, Hematocrit 33.9L , Mean Corpuscular Volume 89, Mean Corpuscular Hemoglobin 31.3H, Mean Corpuscular Hemoglobin Concent 35.2, Red Cell Distribution Width 11.1L, Platelet Count 198, Mean Platelet Volume 4.6L, Neutrophils (%) (Auto) 76.1H, Lymphocytes (%) (Auto) 8.2L, Monocytes (%) (Auto) 11.9H, Eosinophils (%) (Auto) 2.9, Basophils (%) (Auto) 0.8, Sodium Level 147H, Potassium Level 3.7, Chloride Level 109H, Carbon Dioxide Level 26, Anion Gap 12, Blood Urea Nitrogen 10, Creatinine 0.7, Estimat Glomerular Filtration Rate > 60, Glucose Level 114H, Calcium Level 8.5, Triglycerides Level 172H Height (Feet): 6 Height (Inches): 1.00 Weight (Pounds): 175 Cardiovascular: normal rate Respiratory/Chest: lungs clear Edema: no edema noted Generalized Delgado Perez MD Nov 09, 2019 09:11
--- NOTE | 2019-11-09 10:23 | NUR ---
RADIOLOGY DEPT., CHEST X-RAY DONE.-P.DYE
--- NOTE | 2019-11-09 11:34 | Pulmonolgy Critical Care Note ---
Critical Care - Asmt/Plan Problems: (1) Drug overdose (2) Encephalopathy (3) Respiratory failure (4) Substance abuse (5) Renal insufficiency (6) Hypernatremia (7) Sepsis (8) Eyelid abnormality Assessment/Plan: CXR Continue ventilatory support/settings reviewed FiO2 40, dec PEEP to 5 SBT once more alert Optimize pulmonary hygiene/mobilize as tolerated HHN's Off PROPOFOL, wean FENTANYL to RASS - 2 --> PRN Versed, PRN Haldol (QTc ok) EEG done, F/U result, can go for CT brain today Monitor volumes and renal function, DAILY BANANA BAGS ABx: Zosyn per ID Needs OPHTHO consult - PMD notified DVT Px: Hep SQ NGTF's FC CCT 35 Critical Care - Objective Last 24 Hour Vital Signs Date Time Temp Pulse Resp B/P (MAP) Pulse Ox O2 Delivery O2 Flow Rate FiO2 11/09/19 11:00 26 Mechanical Ventilator 40 11/09/19 11:00 96 26 121/71 (88) 96 11/09/19 10:53 102 29 97 Mechanical Ventilator 40 98 29 40 11/09/19 10:34 24 Mechanical Ventilator 40 11/09/19 10:30 100 23 127/76 (93) 100 11/09/19 10:00 98 24 128/74 (92) 100 11/09/19 10:00 24 Mechanical Ventilator 40 11/09/19 09:30 96 26 127/71 (89) 100 11/09/19 09:00 92 25 124/73 (90) 100 11/09/19 09:00 25 Mechanical Ventilator 40 11/09/19 08:49 93 26 40 11/09/19 08:45 93 17 120/82 (95) 100 11/09/19 08:30 86 26 105/72 (83) 100 11/09/19 08:15 86 26 112/71 (85) 100 11/09/19 08:00 26 Mechanical Ventilator 40 11/09/19 08:00 98.4 84 26 111/72 (85) 100 11/09/19 08:00 40 11/09/19 08:00 Mechanical Ventilator Mechanical Ventilator 11/09/19 07:58 84 11/09/19 07:30 84 26 106/64 (78) 100 11/09/19 07:15 84 26 100 Mechanical Ventilator 40 83 26 40 11/09/19 07:00 26 Mechanical Ventilator 40 11/09/19 07:00 84 25 97/56 (70) 98 11/09/19 06:45 26 Mechanical Ventilator 40 11/09/19 06:45 86 26 97/54 (68) 95 11/09/19 06:30 85 26 11/09/19 06:30 26 Mechanical Ventilator 40 11/09/19 06:30 89 25 110/65 (80) 99 11/09/19 06:15 26 Mechanical Ventilator 40 11/09/19 06:15 89 26 98/52 (67) 99 11/09/19 06:00 26 Mechanical Ventilator 40 11/09/19 06:00 90 26 103/54 (70) 100 11/09/19 05:45 93 24 108/73 (85) 100 11/09/19 05:45 26 Mechanical Ventilator 40 11/09/19 05:30 91 23 106/60 (75) 100 11/09/19 05:30 26 Mechanical Ventilator 40 11/09/19 05:15 92 26 95/57 (70) 100 11/09/19 05:15 26 Mechanical Ventilator 40 11/09/19 05:15 92 26 100 Mechanical Ventilator 50 100 26 50 11/09/19 05:00 93 26 97/50 (66) 99 11/09/19 05:00 26 Mechanical Ventilator 40 11/09/19 04:45 30 Mechanical Ventilator 40 11/09/19 04:45 94 25 107/53 (71) 11/09/19 04:30 26 Mechanical Ventilator 40 11/09/19 04:30 95 26 100/55 (70) 11/09/19 04:15 97 26 114/62 (79) 11/09/19 04:15 26 Mechanical Ventilator 40 11/09/19 04:00 97.9 113 25 145/80 (101) 11/09/19 04:00 26 Mechanical Ventilator 40 11/09/19 04:00 Mechanical Ventilator Mechanical Ventilator 11/09/19 04:00 100 11/09/19 04:00 40 11/09/19 03:45 100 26 119/73 (88) 11/09/19 03:45 26 Mechanical Ventilator 40 11/09/19 03:30 26 Mechanical Ventilator 40 11/09/19 03:30 100 26 123/72 (89) 11/09/19 03:15 98 26 124/79 (94) 11/09/19 03:15 26 Mechanical Ventilator 40 11/09/19 03:00 26 Mechanical Ventilator 40 11/09/19 03:00 103 24 123/75 (91) 11/09/19 02:59 100 26 100 Mechanical Ventilator 50 100 26 50 11/09/19 02:45 107 25 124/75 (91) 99 11/09/19 02:45 26 Mechanical Ventilator 40 11/09/19 02:30 27 Mechanical Ventilator 40 11/09/19 02:15 36 Mechanical Ventilator 40 11/09/19 02:15 113 29 152/100 (117) 81 11/09/19 02:00 26 Mechanical Ventilator 40 11/09/19 02:00 123 28 141/78 (99) 89 11/09/19 01:45 26 Mechanical Ventilator 40 11/09/19 01:45 139 31 146/67 (93) 89 11/09/19 01:30 101 21 138/93 (108) 100 11/09/19 01:30 26 Mechanical Ventilator 40 11/09/19 01:15 93 26 127/80 (96) 100 11/09/19 01:15 26 Mechanical Ventilator 40 11/09/19 01:10 105 26 50 11/09/19 01:00 26 Mechanical Ventilator 40 11/09/19 01:00 92 26 126/79 (95) 99 11/09/19 00:45 93 26 128/87 (101) 99 11/09/19 00:41 26 Mechanical Ventilator 40 11/09/19 00:30 26 Mechanical Ventilator 40 11/09/19 00:30 93 26 119/79 (92) 100 11/09/19 00:15 97 26 119/76 (90) 99 11/09/19 00:15 26 Mechanical Ventilator 40 11/09/19 00:00 103 26 126/82 (97) 98 11/09/19 00:00 40 11/09/19 00:00 97 11/09/19 00:00 26 Mechanical Ventilator 40 11/09/19 00:00 Mechanical Ventilator Mechanical Ventilator 11/08/19 23:45 108 27 125/74 (91) 92 11/08/19 23:45 26 Mechanical Ventilator 40 11/08/19 23:30 116 28 128/65 (86) 93 11/08/19 23:30 26 Mechanical Ventilator 40 11/08/19 23:15 121 27 117/75 (89) 87 220 23:15 26 Mechanical Ventilator 40 220 23:00 127 27 144/76 (98) 86 220 23:00 26 Mechanical Ventilator 40 11/08/19 22:46 104 29 40 2/20 22:45 127 29 132/71 (91) 85 2/20 22:45 28 Mechanical Ventilator 40 11/08/19 22:30 130 32 126/88 (101) 84 11/08/19 22:30 24 Mechanical Ventilator 40 11/08/19 22:15 36 Mechanical Ventilator 40 20 22:15 123 19 115/71 (86) 91 20 22:00 36 Mechanical Ventilator 40 11/08/19 22:00 107 15 129/67 (87) 100 11/08/19 21:45 30 Mechanical Ventilator 40 11/08/19 21:45 97 25 103/76 (85) 100 11/08/19 21:30 29 Mechanical Ventilator 40 11/08/19 21:30 26 Mechanical Ventilator 40 11/08/19 21:30 36 Mechanical Ventilator 40 11/08/19 21:30 102 25 102/59 (73) 98 2/20 21:15 110 25 84/54 (64) 93 11/08/19 21:15 26 Mechanical Ventilator 40 11/08/19 21:00 137 28 125/75 (92) 84 20 21:00 30 162/76 Mechanical Ventilator 40 20 21:00 26 Mechanical Ventilator 40 11/08/19 20:50 102 30 40 11/08/19 20:45 96 26 100/58 (72) 94 11/08/20 20:45 26 100/58 Mechanical Ventilator 40 11/08/19 20:45 26 Mechanical Ventilator 40 20 20:30 26 94/50 Mechanical Ventilator 40 11/08/20 20:30 26 Mechanical Ventilator 26 20 20:30 98 26 94/50 (65) 94 11/08/ 20:15 104 24 102/56 (71) 91 20 20:15 26 102/56 Mechanical Ventilator 40 11/08/20 20:15 26 Mechanical Ventilator 40 20 20:00 40 2/20 20:00 Mechanical Ventilator Mechanical Ventilator 11/08/19 20:00 100 2//20 20:00 26 100/56 Mechanical Ventilator 40 11/08/19 20:00 26 Mechanical Ventilator 40 11/08/19 20:00 102 26 100/58 (72) 96 11/08/19 19:45 26 111/67 Mechanical Ventilator 40 11/08/19 19:45 26 Mechanical Ventilator 40 11/08/19 19:45 100 26 109/69 (82) 95 11/08/19 19:30 26 108/65 Mechanical Ventilator 40 11/08/19 19:30 26 Mechanical Ventilator 40 11/08/19 19:30 99.1 100 26 111/67 (82) 94 11/08/19 19:15 26 111/67 Mechanical Ventilator 40 11/08/19 19:15 26 Mechanical Ventilator 40 11/08/19 19:00 99 26 115/63 (80) 97 11/08/19 19:00 26 115/63 Mechanical Ventilator 40 11/08/19 19:00 26 Mechanical Ventilator 40 11/08/19 18:45 26 104/58 Mechanical Ventilator 40 11/08/19 18:45 109 29 40 11/08/19 18:45 99 26 104/58 (73) 97 11/08/19 18:30 26 102/55 Mechanical Ventilator 40 11/08/19 18:30 101 26 102/55 (71) 97 11/08/19 18:15 26 116/60 Mechanical Ventilator 40 11/08/19 18:15 103 26 116/60 (78) 97 11/08/19 18:00 104 26 104/60 (75) 97 11/08/19 18:00 26 104/60 Mechanical Ventilator 40 11/08/19 18:00 26 Mechanical Ventilator 40 11/08/19 17:30 93 26 107/65 (79) 100 11/08/19 17:20 117 33 40 11/08/19 17:00 26 108/64 Mechanical Ventilator 40 11/08/19 17:00 26 Mechanical Ventilator 40 11/08/19 17:00 95 26 108/64 (79) 100 11/08/19 16:30 94 26 106/67 (80) 100 11/08/19 16:00 Mechanical Ventilator Mechanical Ventilator 11/08/19 16:00 97.8 94 26 111/63 (79) 100 11/08/19 16:00 40 11/08/19 16:00 26 111/63 Mechanical Ventilator 40 2/25/20 16:00 26 Mechanical Ventilator 40 11/08/19 16:00 96 11/08/19 15:30 94 26 109/58 (75) 100 11/08/19 15:00 26 100/66 Mechanical Ventilator 40 11/08/19 15:00 26 Mechanical Ventilator 40 11/08/19 15:00 91 26 100/66 (77) 100 11/08/19 14:35 95 26 40 11/08/19 14:30 90 26 100/66 (77) 100 11/08/19 14:15 91 26 120/79 (93) 100 11/08/19 14:00 93 26 107/64 (78) 99 11/08/19 14:00 26 107/64 Mechanical Ventilator 40 11/08/19 14:00 26 Mechanical Ventilator 40 11/08/19 13:45 99 24 93/52 (66) 94 11/08/19 13:30 102 22 126/88 (101) 97 11/08/19 13:21 26 Mechanical Ventilator 40 11/08/19 13:15 101 21 127/77 (94) 96 11/08/19 13:06 87 26 40 11/08/19 13:00 26 118/69 Mechanical Ventilator 40 11/08/19 13:00 26 Mechanical Ventilator 40 11/08/19 13:00 100 20 118/69 (85) 96 11/08/19 12:45 93 20 119/69 (86) 98 11/08/19 12:30 94 20 113/63 (80) 98 11/08/19 12:15 26 117/64 Mechanical Ventilator 40 11/08/19 12:15 94 23 117/64 (81) 98 11/08/19 12:00 Mechanical Ventilator Mechanical Ventilator 11/08/19 12:00 96 11/08/19 12:00 98.6 94 26 111/63 (79) 98 11/08/19 12:00 26 111/68 Mechanical Ventilator 40 11/08/19 12:00 26 Mechanical Ventilator 40 11/08/19 11:45 98 26 101/59 (73) 97 11/08/19 11:45 26 101/59 Mechanical Ventilator 40 Status: sedated Condition: critical HEENT: atraumatic, normocephalic, other - R eyelid lower edema Lungs: rhonchi Heart: HR/BP stable Abdomen: soft, non-tender, active bowel sounds Extremities: no C/C/E Micro: Microbiology Date/Time Source Procedure Growth Status 11/06/19 16:45 Blood Blood Culture - Preliminary NO GROWTH AFTER 48 HOURS Resulted 11/06/19 14:29 Sputum Gram Stain - Final Complete 11/06/19 14:29 Sputum Sputum Culture - Final NO GROWTH AFTER 48 HOURS Complete 11/06/19 14:29 Indwelling Cath Urine Culture - Final NO GROWTH AFTER 48 HOURS Complete Blood Sugars: BS controlled Critical Care - Subjective ROS Limited/Unobtainable: Yes ICU Day: 6 Intubation Day: 6 Interval Events: R eyelid swollen Off propofol, on Fent 250, PRN ativan and haldol Thick secretions ON but stable on vent PEEP 7 Sedated currently Condition: stable IV Access: central - L fem TLC, peripheral EKG Rhythm: Sinus Rhythm FI02: 40 Vent Support Breath Rate: 26 Vent Support Mode: AC Vent Tidal Volume: 500 Sputum Amount: Large PEEP: 7.0 PIP: 53 Secretions: large thick creamy Fluids: Daily banana bag Drips: Off Ne, Fent 250 Tube Feeding Amount: 42 I&O: Intake and Output 11/08/19 11/09/19 19:00 07:00 Intake Total 1611.23648 ml 1681.592 ml Output Total 885 ml 585 ml Balance 726.63996 ml 1096.592 ml Intake Free Water 20 ml IV Total 1087.23716 ml 1177.592 ml Tube Feeding 504 ml 504 ml Output Urine Total 885 ml 585 ml Subjective: SAHRA ET-Tube: 7.5 ET Position: 25 Labs: Laboratory Tests Test 11/07/19 16:28 11/08/19 05:00 11/08/19 08:44 11/08/19 17:30 Vancomycin Level Trough 14.5 ug/mL (5.0-12.0) H White Blood Count 9.5 K/UL (4.8-10.8) # Red Blood Count 3.86 M/UL (4.70-6.10) L Hemoglobin 11.8 G/DL (14.2-18.0) L Hematocrit 34.6 % (42.0-52.0) L Mean Corpuscular Volume 90 FL (80-99) Mean Corpuscular Hemoglobin 30.7 PG (27.0-31.0) Mean Corpuscular Hemoglobin Concent 34.2 G/DL (32.0-36.0) Red Cell Distribution Width 13.0 % (11.6-14.8) Platelet Count 205 K/UL (150-450) Mean Platelet Volume 6.0 FL (6.5-10.1) L Neutrophils (%) (Auto) 76.7 % (45.0-75.0) H Lymphocytes (%) (Auto) 10.1 % (20.0-45.0) L Monocytes (%) (Auto) 6.9 % (1.0-10.0) Eosinophils (%) (Auto) 5.3 % (0.0-3.0) H Basophils (%) (Auto) 1.0 % (0.0-2.0) Sodium Level 146 MMOL/L (136-145) H Potassium Level 3.4 MMOL/L (3.5-5.1) L Chloride Level 111 MMOL/L (98-107) H Carbon Dioxide Level 25 MMOL/L (21-32) Anion Gap 10 mmol/L (5-15) Blood Urea Nitrogen 7 mg/dL (7-18) Creatinine 0.8 MG/DL (0.55-1.30) Estimate Glomerular Filtration Rate > 60 mL/min (>60) Glucose Level 94 MG/DL (74-106) Calcium Level 8.6 MG/DL (8.5-10.1) Arterial Blood pH 7.315 (7.350-7.450) Arterial Blood Partial Pressure CO2 55.0 mmHg (35.0-45.0) H Arterial Blood Partial Pressure O2 69.1 mmHg (75.0-100.0) L Arterial Blood HCO3 27.4 mmol/L (22.0-26.0) H Arterial Blood Oxygen Saturation 92.8 % (95-100) L Arterial Blood Base Excess 0.3 (-2-2) Cj Test Positive Urine Color Brown Urine Appearance Clear Urine pH 5 (4.5-8.0) Urine Specific [place] 1.020 (1.005-1.035) Urine Protein 2+ (NEGATIVE) H Urine Glucose (UA) Negative (NEGATIVE) Urine Ketones 3+ (NEGATIVE) H Urine Blood Negative (NEGATIVE) Urine Nitrite Negative (NEGATIVE) Urine Bilirubin Negative (NEGATIVE) Urine Urobilinogen 4 MG/DL (0.0-1.0) H Urine Leukocyte Esterase 1+ (NEGATIVE) H Urine RBC 0-2 /HPF (0 - 0) H Urine WBC 0-2 /HPF (0 - 0) Urine Squamous Epithelial Cells Occasional /LPF Urine Bacteria Few /HPF (NONE) Test 11/09/19 04:30 White Blood Count 7.1 K/UL (4.8-10.8) Red Blood Count 3.81 M/UL (4.70-6.10) L Hemoglobin 11.9 G/DL (14.2-18.0) L Hematocrit 33.9 % (42.0-52.0) L Mean Corpuscular Volume 89 FL (80-99) Mean Corpuscular Hemoglobin 31.3 PG (27.0-31.0) H Mean Corpuscular Hemoglobin Concent 35.2 G/DL (32.0-36.0) Red Cell Distribution Width 11.1 % (11.6-14.8) L Platelet Count 198 K/UL (150-450) Mean Platelet Volume 4.6 FL (6.5-10.1) L Neutrophils (%) (Auto) 76.1 % (45.0-75.0) H Lymphocytes (%) (Auto) 8.2 % (20.0-45.0) L Monocytes (%) (Auto) 11.9 % (1.0-10.0) H Eosinophils (%) (Auto) 2.9 % (0.0-3.0) Basophils (%) (Auto) 0.8 % (0.0-2.0) Sodium Level 147 MMOL/L (136-145) H Potassium Level 3.7 MMOL/L (3.5-5.1) Chloride Level 109 MMOL/L (98-107) H Carbon Dioxide Level 26 MMOL/L (21-32) Anion Gap 12 mmol/L (5-15) Blood Urea Nitrogen 10 mg/dL (7-18) Creatinine 0.7 MG/DL (0.55-1.30) Estimate Glomerular Filtration Rate > 60 mL/min (>60) Glucose Level 114 MG/DL (74-106) H Calcium Level 8.5 MG/DL (8.5-10.1) Triglycerides Level 172 MG/DL (30-150) H Hola Reddy MD Nov 09, 2019 11:34
--- NOTE | 2019-11-09 11:37 | NUR ---
NURSE NOTES: At 1130, Patient became restless, attempted to get up from bed. Increased Fentanyl drip to 250mcg/hr, RASS score -2 after increasing Fentanyl by 10mcg/hr based on protocol. Will continue to monitor.
--- NOTE | 2019-11-09 12:00 | Diagnostic Imaging Report ---
Indication: Dyspnea Comparison: 11/07/2019 A single view chest radiograph was obtained. Findings: Hazy infiltrate demonstrated in the perihilar regions bilaterally more so on the left. Endotracheal tube and nasogastric tubes appear in good position. Heart size is normal. IMPRESSION: Perihilar pneumonia
--- NOTE | 2019-11-09 12:50 | NUR ---
NURSE NOTES: 1230 Patient became very agitated, RASS score +3. Attempted to get out of bed and shaking body aggressively. Increased Fentanyl drip by 10mcg based on protocol to 260mcg/hr. 1235 patient remains at RASS score +3, attempting to get out of bed and shaking aggressively. Increased Fentanyl by 10mcg/hr based on protocol to 270mcg/hr, achieved RASS score of -2. Patient resting in bed, easily awakens to voice, holds eye contact for less than 5 seconds. Will continue to monitor
[2019-11-09] MEDS: Norepinephrine Bitartrate 8 MG in D5W 500ml 550 ML IV SCH (13:00)
--- NOTE | 2019-11-09 14:26 | Infectious Diseases Prog Note ---
Assessment/Plan Assessment/Plan IMPRESSION: Sepsis resolving pneumonia improving ARDS,. Acidosis, Alcohol Amphetamine abuse, Acute renal failure that is improving. RECOMMENDATION: Continue Zosyn. Case was D/W RN Subjective ROS Limited/Unobtainable: Yes Neurologic: Reports: other - sedated on restraint Allergies: Coded Allergies: No Known Allergies (Unverified , 11/04/19) Objective Vital Signs Last 24 Hour Vital Signs Date Time Temp Pulse Resp B/P (MAP) Pulse Ox O2 Delivery O2 Flow Rate FiO2 11/09/19 13:29 113 25 Mechanical Ventilator 40 11/09/19 12:35 26 Mechanical Ventilator 40 11/09/19 12:30 26 Mechanical Ventilator 40 11/09/19 12:00 98.6 125 31 143/83 (103) 93 11/09/19 12:00 Mechanical Ventilator Mechanical Ventilator 11/09/19 12:00 31 Mechanical Ventilator 40 11/09/19 12:00 40 11/09/19 11:45 100 25 121/69 (86) 100 11/09/19 11:30 104 28 102/60 (74) 94 11/09/19 11:30 24 Mechanical Ventilator 40 11/09/19 11:24 109 11/09/19 11:00 26 Mechanical Ventilator 40 11/09/19 11:00 96 26 121/71 (88) 96 11/09/19 10:53 102 29 97 Mechanical Ventilator 40 98 29 40 11/09/19 10:34 24 Mechanical Ventilator 40 11/09/19 10:30 100 23 127/76 (93) 100 11/09/19 10:00 98 24 128/74 (92) 100 11/09/19 10:00 24 Mechanical Ventilator 40 11/09/19 09:30 96 26 127/71 (89) 100 11/09/19 09:00 92 25 124/73 (90) 100 11/09/19 09:00 25 Mechanical Ventilator 40 11/09/19 08:49 93 26 40 11/09/19 08:45 93 17 120/82 (95) 100 11/09/19 08:30 86 26 105/72 (83) 100 11/09/19 08:15 86 26 112/71 (85) 100 11/09/19 08:00 26 Mechanical Ventilator 40 11/09/19 08:00 98.4 84 26 111/72 (85) 100 11/09/19 08:00 40 11/09/19 08:00 Mechanical Ventilator Mechanical Ventilator 11/09/19 07:58 84 11/09/19 07:30 84 26 106/64 (78) 100 11/09/19 07:15 84 26 100 Mechanical Ventilator 40 83 26 40 11/09/19 07:00 26 Mechanical Ventilator 40 11/09/19 07:00 84 25 97/56 (70) 98 11/09/19 06:45 26 Mechanical Ventilator 40 11/09/19 06:45 86 26 97/54 (68) 95 11/09/19 06:30 85 26 11/09/19 06:30 26 Mechanical Ventilator 40 11/09/19 06:30 89 25 110/65 (80) 99 11/09/19 06:15 26 Mechanical Ventilator 40 11/09/19 06:15 89 26 98/52 (67) 99 11/09/19 06:00 26 Mechanical Ventilator 40 11/09/19 06:00 90 26 103/54 (70) 100 11/09/19 05:45 93 24 108/73 (85) 100 11/09/19 05:45 26 Mechanical Ventilator 40 11/09/19 05:30 91 23 106/60 (75) 100 11/09/19 05:30 26 Mechanical Ventilator 40 11/09/19 05:15 92 26 95/57 (70) 100 11/09/19 05:15 26 Mechanical Ventilator 40 11/09/19 05:15 92 26 100 Mechanical Ventilator 50 100 26 50 11/09/19 05:00 93 26 97/50 (66) 99 11/09/19 05:00 26 Mechanical Ventilator 40 11/09/19 04:45 30 Mechanical Ventilator 40 11/09/19 04:45 94 25 107/53 (71) 11/09/19 04:30 26 Mechanical Ventilator 40 11/09/19 04:30 95 26 100/55 (70) 11/09/19 04:15 97 26 114/62 (79) 11/09/19 04:15 26 Mechanical Ventilator 40 11/09/19 04:00 97.9 113 25 145/80 (101) 11/09/19 04:00 26 Mechanical Ventilator 40 11/09/19 04:00 Mechanical Ventilator Mechanical Ventilator 11/09/19 04:00 100 11/09/19 04:00 40 11/09/19 03:45 100 26 119/73 (88) 11/09/19 03:45 26 Mechanical Ventilator 40 11/09/19 03:30 26 Mechanical Ventilator 40 11/09/19 03:30 100 26 123/72 (89) 11/09/19 03:15 98 26 124/79 (94) 11/09/19 03:15 26 Mechanical Ventilator 40 11/09/19 03:00 26 Mechanical Ventilator 40 11/09/19 03:00 103 24 123/75 (91) 11/09/19 02:59 100 26 100 Mechanical Ventilator 50 100 26 50 11/09/19 02:45 107 25 124/75 (91) 99 11/09/19 02:45 26 Mechanical Ventilator 40 11/09/19 02:30 27 Mechanical Ventilator 40 11/09/19 02:15 36 Mechanical Ventilator 40 11/09/19 02:15 113 29 152/100 (117) 81 11/09/19 02:00 26 Mechanical Ventilator 40 11/09/19 02:00 123 28 141/78 (99) 89 11/09/19 01:45 26 Mechanical Ventilator 40 11/09/19 01:45 139 31 146/67 (93) 89 11/09/19 01:30 101 21 138/93 (108) 100 11/09/19 01:30 26 Mechanical Ventilator 40 11/09/19 01:15 93 26 127/80 (96) 100 11/09/19 01:15 26 Mechanical Ventilator 40 11/09/19 01:10 105 26 50 11/09/19 01:00 26 Mechanical Ventilator 40 11/09/19 01:00 92 26 126/79 (95) 99 11/09/19 00:45 93 26 128/87 (101) 99 11/09/19 00:41 26 Mechanical Ventilator 40 11/09/19 00:30 26 Mechanical Ventilator 40 11/09/19 00:30 93 26 119/79 (92) 100 11/09/19 00:15 97 26 119/76 (90) 99 11/09/19 00:15 26 Mechanical Ventilator 40 11/09/19 00:00 103 26 126/82 (97) 98 11/09/19 00:00 40 11/09/19 00:00 97 11/09/19 00:00 26 Mechanical Ventilator 40 11/09/19 00:00 Mechanical Ventilator Mechanical Ventilator 11/08/19 23:45 108 27 125/74 (91) 92 20 23:45 26 Mechanical Ventilator 40 20 23:30 116 28 128/65 (86) 93 220 23:30 26 Mechanical Ventilator 40 11/08/19 23:15 121 27 117/75 (89) 87 20 23:15 26 Mechanical Ventilator 40 20 23:00 127 27 144/76 (98) 86 11/08/19 23:00 26 Mechanical Ventilator 40 11/08/19 22:46 104 29 40 11/08/19 22:45 127 29 132/71 (91) 85 11/08/19 22:45 28 Mechanical Ventilator 40 11/08/19 22:30 130 32 126/88 (101) 84 11/08/19 22:30 24 Mechanical Ventilator 40 11/08/19 22:15 36 Mechanical Ventilator 40 11/08/19 22:15 123 19 115/71 (86) 91 11/08/19 22:00 36 Mechanical Ventilator 40 11/08/19 22:00 107 15 129/67 (87) 100 11/08/19 21:45 30 Mechanical Ventilator 40 11/08/19 21:45 97 25 103/76 (85) 100 11/08/19 21:30 29 Mechanical Ventilator 40 11/08/19 21:30 26 Mechanical Ventilator 40 11/08/19 21:30 36 Mechanical Ventilator 40 11/08/19 21:30 102 25 102/59 (73) 98 20 21:15 110 25 84/54 (64) 93 11/08/19 21:15 26 Mechanical Ventilator 40 11/08/19 21:00 137 28 125/75 (92) 84 20 21:00 30 162/76 Mechanical Ventilator 40 20 21:00 26 Mechanical Ventilator 40 11/08/20 20:50 102 30 40 20 20:45 96 26 100/58 (72) 94 11/08/20 20:45 26 100/58 Mechanical Ventilator 40 11/08/20 20:45 26 Mechanical Ventilator 40 11/08/20 20:30 26 94/50 Mechanical Ventilator 40 11/08/20 20:30 26 Mechanical Ventilator 26 20 20:30 98 26 94/50 (65) 94 20 20:15 104 24 102/56 (71) 91 2/25/20 20:15 26 102/56 Mechanical Ventilator 40 20 20:15 26 Mechanical Ventilator 40 11/08/19 20:00 40 11/08/19 20:00 Mechanical Ventilator Mechanical Ventilator 11/08/19 20:00 100 20 20:00 26 100/56 Mechanical Ventilator 40 20 20:00 26 Mechanical Ventilator 40 11/08/19 20:00 102 26 100/58 (72) 96 11/08/19 19:45 26 111/67 Mechanical Ventilator 40 20 19:45 26 Mechanical Ventilator 40 11/08/19 19:45 100 26 109/69 (82) 95 11/08/19 19:30 26 108/65 Mechanical Ventilator 40 11/08/19 19:30 26 Mechanical Ventilator 40 11/08/19 19:30 99.1 100 26 111/67 (82) 94 11/08/19 19:15 26 111/67 Mechanical Ventilator 40 11/08/19 19:15 26 Mechanical Ventilator 40 11/08/19 19:00 99 26 115/63 (80) 97 11/08/19 19:00 26 115/63 Mechanical Ventilator 40 11/08/19 19:00 26 Mechanical Ventilator 40 11/08/19 18:45 26 104/58 Mechanical Ventilator 40 11/08/19 18:45 109 29 40 11/08/19 18:45 99 26 104/58 (73) 97 11/08/ 18:30 26 102/55 Mechanical Ventilator 40 11/08/19 18:30 101 26 102/55 (71) 97 11/08/19 18:15 26 116/60 Mechanical Ventilator 40 20 18:15 103 26 116/60 (78) 97 11/08/20 18:00 104 26 104/60 (75) 97 11/08/20 18:00 26 104/60 Mechanical Ventilator 40 20 18:00 26 Mechanical Ventilator 40 20 17:30 93 26 107/65 (79) 100 11/08/20 17:20 117 33 40 11/08/20 17:00 26 108/64 Mechanical Ventilator 40 11/08/20 17:00 26 Mechanical Ventilator 40 20 17:00 95 26 108/64 (79) 100 11/08/19 16:30 94 26 106/67 (80) 100 11/08/19 16:00 Mechanical Ventilator Mechanical Ventilator 11/08/19 16:00 97.8 94 26 111/63 (79) 100 11/08/19 16:00 40 11/08/19 16:00 26 111/63 Mechanical Ventilator 40 11/08/19 16:00 26 Mechanical Ventilator 40 11/08/19 16:00 96 11/08/19 15:30 94 26 109/58 (75) 100 11/08/19 15:00 26 100/66 Mechanical Ventilator 40 11/08/19 15:00 26 Mechanical Ventilator 40 11/08/19 15:00 91 26 100/66 (77) 100 11/08/19 14:35 95 26 40 11/08/19 14:30 90 26 100/66 (77) 100 Height (Feet): 6 Height (Inches): 1.00 Weight (Pounds): 175 HEENT: mucous membranes moist, other - orally intubated Respiratory/Chest: lungs clear, other - on ventilator Abdomen: soft, non tender, other - orogastric tube Genitourinary: other - dark urine Extremities: no edema Neurologic/Psychiatric: other - sedated Microbiology Date/Time Source Procedure Growth Status 11/06/19 16:45 Blood Blood Culture - Preliminary NO GROWTH AFTER 48 HOURS Resulted 11/06/19 14:29 Sputum Gram Stain - Final Complete 11/06/19 14:29 Sputum Sputum Culture - Final NO GROWTH AFTER 48 HOURS Complete 11/06/19 14:29 Indwelling Cath Urine Culture - Final NO GROWTH AFTER 48 HOURS Complete Laboratory Tests Test 11/08/19 17:30 11/09/19 04:30 Urine Color Brown Urine Appearance Clear Urine pH 5 (4.5-8.0) Urine Specific [place] 1.020 (1.005-1.035) Urine Protein 2+ (NEGATIVE) H Urine Glucose (UA) Negative (NEGATIVE) Urine Ketones 3+ (NEGATIVE) H Urine Blood Negative (NEGATIVE) Urine Nitrite Negative (NEGATIVE) Urine Bilirubin Negative (NEGATIVE) Urine Urobilinogen 4 MG/DL (0.0-1.0) H Urine Leukocyte Esterase 1+ (NEGATIVE) H Urine RBC 0-2 /HPF (0 - 0) H Urine WBC 0-2 /HPF (0 - 0) Urine Squamous Epithelial Cells Occasional /LPF Urine Bacteria Few /HPF (NONE) White Blood Count 7.1 K/UL (4.8-10.8) Red Blood Count 3.81 M/UL (4.70-6.10) L Hemoglobin 11.9 G/DL (14.2-18.0) L Hematocrit 33.9 % (42.0-52.0) L Mean Corpuscular Volume 89 FL (80-99) Mean Corpuscular Hemoglobin 31.3 PG (27.0-31.0) H Mean Corpuscular Hemoglobin Concent 35.2 G/DL (32.0-36.0) Red Cell Distribution Width 11.1 % (11.6-14.8) L Platelet Count 198 K/UL (150-450) Mean Platelet Volume 4.6 FL (6.5-10.1) L Neutrophils (%) (Auto) 76.1 % (45.0-75.0) H Lymphocytes (%) (Auto) 8.2 % (20.0-45.0) L Monocytes (%) (Auto) 11.9 % (1.0-10.0) H Eosinophils (%) (Auto) 2.9 % (0.0-3.0) Basophils (%) (Auto) 0.8 % (0.0-2.0) Sodium Level 147 MMOL/L (136-145) H Potassium Level 3.7 MMOL/L (3.5-5.1) Chloride Level 109 MMOL/L (98-107) H Carbon Dioxide Level 26 MMOL/L (21-32) Anion Gap 12 mmol/L (5-15) Blood Urea Nitrogen 10 mg/dL (7-18) Creatinine 0.7 MG/DL (0.55-1.30) Estimat Glomerular Filtration Rate > 60 mL/min (>60) Glucose Level 114 MG/DL (74-106) H Calcium Level 8.5 MG/DL (8.5-10.1) Triglycerides Level 172 MG/DL (30-150) H Current Medications Medications (Trade) Dose Ordered Sig/Nato Route PRN Reason Start Time Stop Time Status Last Admin Dose Admin Acetaminophen (Tylenol) 650 mg Q6H PRN ORAL Mild Pain/Temp > 100.5 11/04/19 19:30 12/04/19 19:29 11/05/19 08:27 Albumin Human 50 ml @ 50 mls/hr PRN PRN IVPB For hypotension 11/04/19 22:00 12/04/19 21:59 11/05/19 00:15 Albuterol/ Ipratropium (Albuterol/ Ipratropium) 3 ml Q4HRT HHN 11/08/19 11:00 11/13/19 10:59 11/09/19 10:43 Albuterol/ Ipratropium (Albuterol/ Ipratropium) 3 ml Q6H PRN HHN SOB/Wheezing 11/04/19 19:30 11/09/19 19:29 11/08/19 08:17 Chlorhexidine Gluconate (Catherine-Hex 2%) 1 applic DAILY@2000 TOPIC 11/05/19 20:00 12/05/19 19:59 11/08/19 19:59 Fentanyl Citrate 2500 mcg/Sodium Chloride 250 ml @ 0 mls/hr Q24H IV 11/07/19 07:00 11/12/19 00:00 11/09/19 10:34 Folic Acid 1 mg/ Magnesium Sulfate 2000 mg/ Multivitamins 10 ml/Dextrose/ Sodium Chloride 1,014.2 ml @ 75 mls/hr Q24H IV 11/04/19 21:00 12/04/19 20:59 11/08/19 21:28 Haloperidol Lactate (Haldol) 5 mg Q4H PRN IM AGITATION 11/08/19 08:27 12/08/19 08:26 11/09/19 13:22 Lorazepam (Ativan 2mg/ml 1ml) 1 mg Q2HR PRN IV Agitation 11/08/19 08:30 11/11/19 21:59 11/09/19 02:56 Norepinephrine Bitartrate 8 mg/ Dextrose 558 ml @ 0 mls/hr Q24H IV 11/05/19 13:00 12/05/19 12:59 11/07/19 17:00 Ondansetron HCl (Zofran) 4 mg Q6H PRN IVP Nausea & Vomiting 11/04/19 20:00 12/04/19 19:59 Pantoprazole (Protonix) 40 mg EVERY 12 HOURS IVP 11/04/19 21:00 12/04/19 20:59 11/09/19 08:53 Piperacillin Sod/ Tazobactam Sod 3.375 gm/Sodium Chloride 110 ml @ 27.5 mls/hr EVERY 8 HOURS IVPB 11/07/19 14:00 11/12/19 13:59 11/09/19 06:10 Sodium Chloride 500 ml @ 500 mls/hr Q1H PRN IV For hypotension (SBP<90) 11/04/19 19:30 12/04/19 19:29 Sodium Chloride 500 ml @ 999 mls/hr Q31M PRN IV For hypotension 11/04/19 22:00 12/04/19 21:59 11/05/19 00:10 Thiamine HCl 100 mg/Dextrose 56 ml @ 112 mls/hr Q24H IVPB 11/04/19 21:00 12/04/19 20:59 11/08/19 21:28 Caesar Perez MD Nov 09, 2019 14:26
--- NOTE | 2019-11-09 15:10 | NUR ---
NURSE NOTES: Patient is resting comfortably in bed, RASS score -2, patient awakens to voice and holds eye contact for less than 10 seconds. No facial grimace and no signs of acute distress. Will continue to monitor.
--- NOTE | 2019-11-09 15:59 | NUR ---
NURSE NOTES: Patient became agitated, turned towards side and self extubated. 100% non-rebreather mask placed on patient. O2 saturation at 90%. Patient complained of not being able to breathe on the ventilator. Will continue to monitor.
--- NOTE | 2019-11-09 16:00 | NUR ---
RESPIRATORY NOTES PT self extubated by turning body sideways. PT places on 100% non-rebreather. Will continue to monitor.
--- NOTE | 2019-11-09 16:11 | NUR ---
NURSE NOTES: Reported self extubation to Dr. Reddy, orders received.
--- NOTE | 2019-11-09 16:56 | NUR ---
NURSE NOTES: Reported ABG results to Dr. Reddy. Orders received to place patient on nasal cannula and titrate O2 to keep oxygen saturation level > 90%.
--- NOTE | 2019-11-09 17:01 | NUR ---
NURSE NOTES: Left message to Dr. Delgado Perez's office regarding patient self-extubation.
--- NOTE | 2019-11-09 17:13 | NUR ---
OPERATING ROOM SCHEDULER NOTE Per nursing note, pt has been agitated and sedated. SW will attempt to meet w/ pt when pt becomes calm. Signed: 11/09/19 at 1713 by PATRICK GHOTRA <Co-Signature Required>
--- NOTE | 2019-11-09 17:31 | NUR ---
NURSE NOTES: Patient is tolerating Nasal cannula well, O2 Saturation at 98%. Patient recalls no information before arriving to hospital. Will continue to monitor.
--- NOTE | 2019-11-09 19:26 | NUR ---
HAND-OFF: Report given to Charge Nurse Martita GUTIERRES.
--- NOTE | 2019-11-09 19:30 | NUR ---
NURSE NOTES: Received patient from BHAVIK Anguiano. patient arousable oriented to self, but confused. patient denies pain. Sinus Rhythm on the Heart Monitor. Receiving oxygen via 2L NC with oxygen saturatino 98%. IV site is Left AC 20g and Left Wrist 20g, patent and intact. Left Femoral TLC receiving Folvite, Magnesium Sulfate, Multivitamin in D5 1/2NS at 75cc/hr. 16F alvarenga catheter draining clear yellow urine. bilateral soft wrist restraints as patient attempted to pull out alvarenga. Bed is locked, placed in lowest position, side rails up x3, bed alarm on, call light within reach. Will continue to monitor. Addendum: 11/09/19 at 2307 by Nayeli Gillette RN Above Nurse Note for 11/09/19 3090. Received report from BHAVIK Anders.
--- NOTE | 2019-11-09 20:15 | NUR ---
HAND-OFF: Report given to liz.
--- NOTE | 2019-11-09 21:00 | NUR ---
NURSE NOTES: Late entry: Patient given CHG bath. patient oriented to self. VSS and afebrile. Patient calm and cooperative, but confused at times. Reorientation given. Left wrist PIV DC per patient. Left femoral TLC dressing clean dry patent. will continue to monitor.
[2019-11-09] MEDS: MULTIVITAMIN IV SCH (21:03)
[2019-11-09] MEDS: MAGNESIUM SULFATE IV SCH (21:03)
[2019-11-09] MEDS: [UNRECOGNIZED DRUG - OTHER] IV SCH (21:03)
[2019-11-09] MEDS: FOLIC ACID IV SCH (21:03)
[2019-11-09] MEDS: Dyna-Hex 2% Top Sol 2oz TOPIC SCH (21:03)
[2019-11-09] MEDS: Thiamine 100mg in D5W 55ml IVPB SCH (21:04)
--- NOTE | 2019-11-09 22:40 | NUR ---
NURSE NOTES: Patient restless and confused. Patient with bilateral wrist restraints attempting to get out of bed. VSS. patient denies pain. Patient was repositioned and reoriented. PRN Haldol 5mg IM administered. bed locked lowest position call light within reach. will continue to monitor.
[2019-11-10] VITALS (21 sets, daily range): BP systolic 97–151; BP diastolic 54–108
--- NOTE | 2019-11-10 | NUR ---
NURSE NOTES: Patient asleep arousable oriented to self. VSS and afebrile. patient denies pain. Respirations even and unlabored on 2L NC oxygen saturation 97%. Patient has productive cough with small amount of thick white secretions. will continue to monitor. bed locked lowest position call light within reach.
--- NOTE | 2019-11-10 02:00 | NUR ---
NURSE NOTES: Patient awake alert oriented to self, slightly restless but does not attempt to pull at anything at this time. Patient follows simple commands. Patient verbalized he would not pull anything. Bilateral soft wrist restraints discontinued. will continue to monitor.
[2019-11-10] MEDS: Albuterol/Ipratropium 3ml neb HHN SCH ×5 (02:50→23:00)
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
--- NOTE | 2019-11-10 04:00 | NUR ---
NURSE NOTES: Patient awake alert oriented x2. VSS and afebrile. patient able to follow simple commands. respirations even and unlabored on 2L NC with small amount of thin white secretions. alvarenga catheter draining clear yellow green urine. will continue to monitor.
[2019-11-10] MEDS: Piperacillin/Tazobactam 3.375 GM in NS 110 ML IVPB SCH ×3 (05:30→21:38)
--- NOTE | 2019-11-10 05:30 | NUR ---
NURSE NOTES: Pt fully awake, alert, oriented x4; calm and fully cooperative. Assisted with AM care, brushed his teeth and sat by the sink to have his hair washed. Denies SOB. denies pain. Left femoral TLC remains intact; banana bag continues at 75ml/h. HL on Left AC remains intact. Pt wants to have the alvarenga cath removed. DC'd and offered urinal to use. VSS afebrile, no distress.
--- NOTE | 2019-11-10 07:07 | NUR ---
HAND-OFF: Report given to BHAVIK Esquivel.
--- NOTE | 2019-11-10 09:00 | NUR ---
NURSE NOTES: Patient able to respond to verbal commands and answer questions correctly, he is able to reposition self with no assistance and stand with a steady gait 4/5. Zosyn running through central line.
[2019-11-10] MEDS: Pantoprazole Inj IVP SCH (09:17)
--- NOTE | 2019-11-10 11:45 | NUR ---
NURSE NOTES: Patient able to tolerate po heeding with no signs of swallowing impairment, patient is able to follow commands and answers questions accurately, he is able to reposition self with no assistance, has a steady gait at 4/5.
--- NOTE | 2019-11-10 12:12 | NUR ---
NURSE NOTES: Dr. Perez reviewed patient chart with no verbal orders given at this time.
[2019-11-10] MEDS: Norepinephrine Bitartrate 8 MG in D5W 500ml 550 ML IV SCH (13:00)
--- NOTE | 2019-11-10 13:41 | Infectious Diseases Prog Note ---
Assessment/Plan Assessment/Plan IMPRESSION: Sepsis resolving pneumonia improving ARDS,. Acidosis, Alcohol Amphetamine abuse, Acute renal failure, resolved RECOMMENDATION: Continue Zosyn. Subjective ROS Limited/Unobtainable: No Constitutional: Reports: no symptoms, other - felles better Respiratory: Reports: no symptoms, other - extubated Cardiovascular: Reports: no symptoms Gastrointestinal/Abdominal: Reports: no symptoms Genitourinary: Reports: no symptoms Allergies: Coded Allergies: No Known Allergies (Unverified , 11/04/19) Objective Vital Signs Last 24 Hour Vital Signs Date Time Temp Pulse Resp B/P (MAP) Pulse Ox O2 Delivery O2 Flow Rate FiO2 11/10/19 13:00 151/84 11/10/19 13:00 90 23 151/84 (106) 100 11/10/19 12:00 98.0 105 18 151/108 (122) 95 11/10/19 12:00 Nasal Cannula 2.0 11/10/19 12:00 103 11/10/19 11:00 113 24 114/66 (82) 98 11/10/19 10:55 80 18 99 Room Air 21 78 16 98 11/10/19 10:00 87 24 120/78 (92) 94 11/10/19 09:00 103 25 107/59 (75) 96 11/10/19 08:00 106 11/10/19 08:00 Nasal Cannula 2.0 11/10/19 08:00 98.6 93 24 136/65 (88) 99 11/10/19 07:44 94 18 98 Nasal Cannula 2.0 28 88 18 97 11/10/19 07:43 98 Nasal Cannula 2.0 28 11/10/19 07:00 80 22 104/71 (82) 100 11/10/19 06:00 90 23 134/58 (83) 99 11/10/19 05:00 104 27 123/73 (90) 98 11/10/19 04:00 Mechanical Ventilator 2.0 Nasal Cannula 2.0 Nasal Cannula 11/10/19 04:00 104 11/10/19 04:00 97.7 103 32 97/55 (69) 96 11/10/19 03:00 111 18 131/64 (86) 99 11/10/19 02:57 113 20 100 Nasal Cannula 2.0 28 11/10/19 02:50 100 17 95 Nasal Cannula 2.0 28 11/10/19 02:00 105 36 121/64 (83) 98 11/10/19 01:00 110 28 117/54 (75) 96 11/10/19 00:00 107 11/10/19 00:00 Nasal Cannula 2.0 Mechanical Ventilator 2.0 Nasal Cannula 11/10/19 00:00 98.6 121 21 136/57 (83) 97 11/09/19 23:42 116 17 100 Nasal Cannula 2.0 28 11/09/19 23:32 111 15 96 Nasal Cannula 2.0 28 11/09/19 23:32 111 15 96 Nasal Cannula 2.0 28 11/09/19 23:00 106 33 137/65 (89) 11/09/19 22:00 112 23 136/83 (100) 89 11/09/19 21:30 119 23 153/92 (112) 96 11/09/19 21:00 109 31 126/86 (99) 95 11/09/19 20:30 114 21 127/87 (100) 95 11/09/19 20:00 98.3 107 29 126/72 (90) 98 11/09/19 20:00 Nasal Cannula 2.0 Nasal Cannula 2.0 Nasal Cannula 2.0 11/09/19 20:00 109 11/09/19 19:40 113 20 98 Nasal Cannula 2.0 28 11/09/19 19:30 94 Nasal Cannula 2.0 28 11/09/19 19:30 107 27 124/84 (97) 97 11/09/19 19:30 110 22 94 Nasal Cannula 2.0 28 11/09/19 19:00 115 27 127/71 (89) 98 11/09/19 18:30 107 26 125/82 (96) 94 11/09/19 18:00 108 24 126/75 (92) 96 11/09/19 17:30 103 30 105/72 (83) 93 11/09/19 17:00 114 26 117/71 (86) 92 11/09/19 16:30 108 25 131/79 (96) 100 11/09/19 16:15 116 21 130/80 (97) 98 11/09/19 16:00 Mechanical Ventilator Mechanical Ventilator 11/09/19 16:00 100 11/09/19 16:00 Non-Rebreather 15.0 100 2/26/20 16:00 28 Mechanical Ventilator 40 2/26/20 16:00 98 Non-Rebreather 15.0 100 11/09/19 16:00 99.4 116 28 119/72 (88) 91 11/09/19 15:30 99 26 127/74 (91) 100 11/09/19 15:27 98 11/09/19 15:11 100 26 100 Mechanical Ventilator 40 97 26 40 11/09/19 15:00 100 26 127/75 (92) 100 11/09/19 15:00 26 Mechanical Ventilator 40 11/09/19 14:30 105 24 130/73 (92) 98 11/09/19 14:00 26 Mechanical Ventilator 40 11/09/19 14:00 121 26 116/66 (83) 96 11/09/19 13:45 119 26 138/63 (88) 97 Height (Feet): 6 Height (Inches): 1.00 Weight (Pounds): 171 General Appearance: no acute distress HEENT: mucous membranes moist, other - decreased conjuntival edema Cardiovascular: normal rate Abdomen: soft, non tender Extremities: no edema Neurologic/Psychiatric: alert, oriented x 3, responsive Laboratory Tests Test 11/09/19 16:33 Arterial Blood pH 7.348 (7.350-7.450) Arterial Blood Partial Pressure CO2 49.4 mmHg (35.0-45.0) H Arterial Blood Partial Pressure O2 46.5 mmHg (75.0-100.0) Arterial Blood HCO3 26.5 mmol/L (22.0-26.0) H Arterial Blood Oxygen Saturation 81.1 % (95-100) *L Arterial Blood Base Excess 0.3 (-2-2) Cj Test Positive Current Medications Medications (Trade) Dose Ordered Sig/Nato Route PRN Reason Start Time Stop Time Status Last Admin Dose Admin Acetaminophen (Tylenol) 650 mg Q6H PRN ORAL Mild Pain/Temp > 100.5 11/04/19 19:30 12/04/19 19:29 11/05/19 08:27 Albumin Human 50 ml @ 50 mls/hr PRN PRN IVPB For hypotension 11/04/19 22:00 12/04/19 21:59 11/05/19 00:15 Albuterol/ Ipratropium (Albuterol/ Ipratropium) 3 ml Q4HRT HHN 11/08/19 11:00 11/13/19 10:59 11/10/19 10:56 Chlorhexidine Gluconate (Catherine-Hex 2%) 1 applic DAILY@2000 TOPIC 11/05/19 20:00 12/05/19 19:59 11/09/19 21:03 Fentanyl Citrate 2500 mcg/Sodium Chloride 250 ml @ 0 mls/hr Q24H IV 11/07/19 07:00 11/12/19 00:00 11/09/19 10:34 Folic Acid 1 mg/ Magnesium Sulfate 2000 mg/ Multivitamins 10 ml/Dextrose/ Sodium Chloride 1,014.2 ml @ 75 mls/hr Q24H IV 11/04/19 21:00 12/04/19 20:59 11/09/19 21:03 Haloperidol Lactate (Haldol) 5 mg Q4H PRN IM AGITATION 11/08/19 08:27 12/08/19 08:26 11/09/19 22:44 Lorazepam (Ativan 2mg/ml 1ml) 1 mg Q2HR PRN IV Agitation 11/08/19 08:30 11/11/19 21:59 11/09/19 02:56 Norepinephrine Bitartrate 8 mg/ Dextrose 558 ml @ 0 mls/hr Q24H IV 11/05/19 13:00 12/05/19 12:59 11/07/19 17:00 Ondansetron HCl (Zofran) 4 mg Q6H PRN IVP Nausea & Vomiting 11/04/19 20:00 12/04/19 19:59 Pantoprazole (Protonix) 40 mg EVERY 12 HOURS IVP 11/04/19 21:00 12/04/19 20:59 11/10/19 09:17 Piperacillin Sod/ Tazobactam Sod 3.375 gm/Sodium Chloride 110 ml @ 27.5 mls/hr EVERY 8 HOURS IVPB 11/07/19 14:00 11/12/19 13:59 11/10/19 05:30 Sodium Chloride 500 ml @ 999 mls/hr Q31M PRN IV For hypotension 11/04/19 22:00 12/04/19 21:59 11/05/19 00:10 Thiamine HCl 100 mg/Dextrose 56 ml @ 112 mls/hr Q24H IVPB 11/04/19 21:00 12/04/19 20:59 11/09/19 21:04 Caesar Perez MD Nov 10, 2019 13:41
--- NOTE | 2019-11-10 13:57 | General Progress Note ---
Assessment/Plan Problem List: (1) Drug overdose ICD Codes: T50.901A - Poisoning by unspecified drugs, medicaments and biological substances, accidental (unintentional), initial encounter SNOMED: 70499939 (2) Encephalopathy ICD Codes: G93.40 - Encephalopathy, unspecified SNOMED: 72747830 (3) Sepsis ICD Codes: A41.9 - Sepsis, unspecified organism SNOMED: 98588997 (4) Respiratory failure ICD Codes: J96.90 - Respiratory failure, unspecified, unspecified whether with hypoxia or hypercapnia SNOMED: 353720892, 446537377 Assessment/Plan: out of ICU abxs Discussed with RN Subjective Allergies: Coded Allergies: No Known Allergies (Unverified , 11/04/19) Subjective extubated himself Objective Last 24 Hour Vital Signs Date Time Temp Pulse Resp B/P (MAP) Pulse Ox O2 Delivery O2 Flow Rate FiO2 11/10/19 13:00 151/84 11/10/19 13:00 90 23 151/84 (106) 100 11/10/19 12:00 98.0 105 18 151/108 (122) 95 11/10/19 12:00 Nasal Cannula 2.0 11/10/19 12:00 103 11/10/19 11:00 113 24 114/66 (82) 98 11/10/19 10:55 80 18 99 Room Air 21 78 16 98 11/10/19 10:00 87 24 120/78 (92) 94 11/10/19 09:00 103 25 107/59 (75) 96 11/10/19 08:00 106 11/10/19 08:00 Nasal Cannula 2.0 11/10/19 08:00 98.6 93 24 136/65 (88) 99 11/10/19 07:44 94 18 98 Nasal Cannula 2.0 28 88 18 97 11/10/19 07:43 98 Nasal Cannula 2.0 28 11/10/19 07:00 80 22 104/71 (82) 100 11/10/19 06:00 90 23 134/58 (83) 99 11/10/19 05:00 104 27 123/73 (90) 98 11/10/19 04:00 Mechanical Ventilator 2.0 Nasal Cannula 2.0 Nasal Cannula 11/10/19 04:00 104 11/10/19 04:00 97.7 103 32 97/55 (69) 96 11/10/19 03:00 111 18 131/64 (86) 99 11/10/19 02:57 113 20 100 Nasal Cannula 2.0 28 11/10/19 02:50 100 17 95 Nasal Cannula 2.0 28 11/10/19 02:00 105 36 121/64 (83) 98 11/10/19 01:00 110 28 117/54 (75) 96 11/10/19 00:00 107 11/10/19 00:00 Nasal Cannula 2.0 Mechanical Ventilator 2.0 Nasal Cannula 11/10/19 00:00 98.6 121 21 136/57 (83) 97 11/09/19 23:42 116 17 100 Nasal Cannula 2.0 28 11/09/19 23:32 111 15 96 Nasal Cannula 2.0 28 11/09/19 23:32 111 15 96 Nasal Cannula 2.0 28 11/09/19 23:00 106 33 137/65 (89) 11/09/19 22:00 112 23 136/83 (100) 89 11/09/19 21:30 119 23 153/92 (112) 96 11/09/19 21:00 109 31 126/86 (99) 95 11/09/19 20:30 114 21 127/87 (100) 95 11/09/19 20:00 98.3 107 29 126/72 (90) 98 11/09/19 20:00 Nasal Cannula 2.0 Nasal Cannula 2.0 Nasal Cannula 2.0 11/09/19 20:00 109 11/09/19 19:40 113 20 98 Nasal Cannula 2.0 28 11/09/19 19:30 94 Nasal Cannula 2.0 28 11/09/19 19:30 107 27 124/84 (97) 97 11/09/19 19:30 110 22 94 Nasal Cannula 2.0 28 11/09/19 19:00 115 27 127/71 (89) 98 11/09/19 18:30 107 26 125/82 (96) 94 11/09/19 18:00 108 24 126/75 (92) 96 11/09/19 17:30 103 30 105/72 (83) 93 11/09/19 17:00 114 26 117/71 (86) 92 11/09/19 16:30 108 25 131/79 (96) 100 11/09/19 16:15 116 21 130/80 (97) 98 11/09/19 16:00 Mechanical Ventilator Mechanical Ventilator 11/09/19 16:00 100 11/09/19 16:00 Non-Rebreather 15.0 100 11/09/19 16:00 28 Mechanical Ventilator 40 11/09/19 16:00 98 Non-Rebreather 15.0 100 11/09/19 16:00 99.4 116 28 119/72 (88) 91 11/09/19 15:30 99 26 127/74 (91) 100 11/09/19 15:27 98 11/09/19 15:11 100 26 100 Mechanical Ventilator 40 97 26 40 11/09/19 15:00 100 26 127/75 (92) 100 11/09/19 15:00 26 Mechanical Ventilator 40 11/09/19 14:30 105 24 130/73 (92) 98 11/09/19 14:00 26 Mechanical Ventilator 40 11/09/19 14:00 121 26 116/66 (83) 96 Intake and Output 11/09/19 11/10/19 19:00 07:00 Intake Total 1007.61 ml 864.75 ml Output Total 1025 ml 1580 ml Balance -17.39 ml -715.25 ml IV Total 629.61 ml 864.75 ml Tube Feeding 378 ml Output Urine Total 1025 ml 1580 ml # Bowel Movements 2 Laboratory Tests 11/09/19 16:33: Arterial Blood pH 7.348L, Arterial Blood Partial Pressure CO2 49.4H, Arterial Blood Partial Pressure O2 46.5*L, Arterial Blood HCO3 26.5H, Arterial Blood Oxygen Saturation 81.1*L, Arterial Blood Base Excess 0.3, Cj Test Positive Height (Feet): 6 Height (Inches): 1.00 Weight (Pounds): 171 Cardiovascular: normal rate Respiratory/Chest: lungs clear Delgado Perez MD Nov 10, 2019 13:57
--- NOTE | 2019-11-10 14:01 | NUR ---
BAILIFF NOTE SW met w/ pt and completed the assessment. Pt presents as A&O 4x. PT is single, never , and receives GR and food stamp. Pt has been homeless for six months. Pt does not have any family/friends in [place]. Pt provided emergency contact: Kia(mother living in [place]) [phone]. Pt does not want to inform his hospitalization to his mother. RUDS positive for methamphetamine. Pt denies current substance abuse. Pt declined to receive tx intervention/counseling/resource on substance abuse. PT denies hx of mental illness, SI/HI. Pt is focusing on discharge, stating he has a couple of place to stay, but pt declined to provide detailed information. Pt states [place] stays in [place]. Pt also reports he is able to navigate homeless resources in the community. SW offered to provide the usp list but pt declined. BRANDIN encouraged pt to verbalize his needs/concerns while IP. Pt verbalized understanding. Signed: 11/10/19 at 1409 by PATRICK GHOTRA <Co-Signature Required>
--- NOTE | 2019-11-10 14:33 | Pulmonolgy Critical Care Note ---
Critical Care - Asmt/Plan Problems: (1) Pneumonia Assessment & Plan: R kumar-hilar infiltrate (2) Drug overdose Assessment & Plan: Now extubated and HD stable (3) Encephalopathy Assessment & Plan: Resolved (4) Respiratory failure Assessment & Plan: Self-extubated 11/09/19 (5) Substance abuse (6) Renal insufficiency Assessment & Plan: RESOLVED (7) Hypernatremia Assessment & Plan: RESOLVED (8) Sepsis Assessment & Plan: RESOLVED (9) Eyelid abnormality Assessment & Plan: Improved Assessment/Plan: Doing better Transfer to floor Abx per ID Infiltrate needs to be followed to resolution Monitor volumes and renal function Daily banana bag F/U psych recs F/U SW recs DVT Px: Hep SQ CCT 30 Critical Care - Objective Last 24 Hour Vital Signs Date Time Temp Pulse Resp B/P (MAP) Pulse Ox O2 Delivery O2 Flow Rate FiO2 11/10/19 14:00 98 25 140/81 (100) 100 11/10/19 13:00 151/84 11/10/19 13:00 90 23 151/84 (106) 100 11/10/19 12:00 98.0 105 18 151/108 (122) 95 11/10/19 12:00 Nasal Cannula 2.0 11/10/19 12:00 103 11/10/19 11:00 113 24 114/66 (82) 98 11/10/19 10:55 80 18 99 Room Air 21 78 16 98 11/10/19 10:00 87 24 120/78 (92) 94 11/10/19 09:00 103 25 107/59 (75) 96 11/10/19 08:00 106 11/10/19 08:00 Nasal Cannula 2.0 11/10/19 08:00 98.6 93 24 136/65 (88) 99 11/10/19 07:44 94 18 98 Nasal Cannula 2.0 28 88 18 97 11/10/19 07:43 98 Nasal Cannula 2.0 28 11/10/19 07:00 80 22 104/71 (82) 100 11/10/19 06:00 90 23 134/58 (83) 99 11/10/19 05:00 104 27 123/73 (90) 98 11/10/19 04:00 Mechanical Ventilator 2.0 Nasal Cannula 2.0 Nasal Cannula 11/10/19 04:00 104 11/10/19 04:00 97.7 103 32 97/55 (69) 96 11/10/19 03:00 111 18 131/64 (86) 99 11/10/19 02:57 113 20 100 Nasal Cannula 2.0 28 11/10/19 02:50 100 17 95 Nasal Cannula 2.0 28 11/10/19 02:00 105 36 121/64 (83) 98 11/10/19 01:00 110 28 117/54 (75) 96 11/10/19 00:00 107 11/10/19 00:00 Nasal Cannula 2.0 Mechanical Ventilator 2.0 Nasal Cannula 11/10/19 00:00 98.6 121 21 136/57 (83) 97 11/09/19 23:42 116 17 100 Nasal Cannula 2.0 28 11/09/19 23:32 111 15 96 Nasal Cannula 2.0 28 11/09/19 23:32 111 15 96 Nasal Cannula 2.0 28 11/09/19 23:00 106 33 137/65 (89) 11/09/19 22:00 112 23 136/83 (100) 89 11/09/19 21:30 119 23 153/92 (112) 96 11/09/19 21:00 109 31 126/86 (99) 95 11/09/19 20:30 114 21 127/87 (100) 95 11/09/19 20:00 98.3 107 29 126/72 (90) 98 11/09/19 20:00 Nasal Cannula 2.0 Nasal Cannula 2.0 Nasal Cannula 2.0 11/09/19 20:00 109 11/09/19 19:40 113 20 98 Nasal Cannula 2.0 28 11/09/19 19:30 94 Nasal Cannula 2.0 28 11/09/19 19:30 107 27 124/84 (97) 97 11/09/19 19:30 110 22 94 Nasal Cannula 2.0 28 11/09/19 19:00 115 27 127/71 (89) 98 11/09/19 18:30 107 26 125/82 (96) 94 11/09/19 18:00 108 24 126/75 (92) 96 11/09/19 17:30 103 30 105/72 (83) 93 11/09/19 17:00 114 26 117/71 (86) 92 11/09/19 16:30 108 25 131/79 (96) 100 2/26/20 16:15 116 21 130/80 (97) 98 11/09/19 16:00 Mechanical Ventilator Mechanical Ventilator 11/09/19 16:00 100 11/09/19 16:00 Non-Rebreather 15.0 100 11/09/19 16:00 28 Mechanical Ventilator 40 11/09/19 16:00 98 Non-Rebreather 15.0 100 11/09/19 16:00 99.4 116 28 119/72 (88) 91 11/09/19 15:30 99 26 127/74 (91) 100 11/09/19 15:27 98 11/09/19 15:11 100 26 100 Mechanical Ventilator 40 97 26 40 11/09/19 15:00 100 26 127/75 (92) 100 11/09/19 15:00 26 Mechanical Ventilator 40 11/09/19 14:30 105 24 130/73 (92) 98 Status: awake Condition: improving HEENT: atraumatic, normocephalic Neck: full ROM Lungs: clear Heart: HR/BP stable Abdomen: soft, non-tender, active bowel sounds Extremities: no C/C/E Blood Sugars: BS controlled Critical Care - Subjective ROS Limited/Unobtainable: Yes ICU Day: 7 Interval Events: Self extubated AFVSS on 2L Started on PO diet Condition: improving IV Access: peripheral EKG Rhythm: Sinus Rhythm FI02: 28 Vent Support Breath Rate: 26 Vent Support Mode: AC Vent Tidal Volume: 500 Sputum Amount: None PEEP: 7.0 PIP: 23 Secretions: None Fluids: SLIV Drips: N/A I&O: Intake and Output 11/09/19 11/10/19 19:00 07:00 Intake Total 1007.61 ml 864.75 ml Output Total 1025 ml 1580 ml Balance -17.39 ml -715.25 ml IV Total 629.61 ml 864.75 ml Tube Feeding 378 ml Output Urine Total 1025 ml 1580 ml # Bowel Movements 2 Subjective: Denies cough, wheezing, SOB, F, C, N, V Has been OOB CXR: R kumar-hilar infiltrate ET-Tube: 7.5 ET Position: 25 Labs: Laboratory Tests Test 11/09/19 16:33 Arterial Blood pH 7.348 (7.350-7.450) Arterial Blood Partial Pressure CO2 49.4 mmHg (35.0-45.0) H Arterial Blood Partial Pressure O2 46.5 mmHg (75.0-100.0) Arterial Blood HCO3 26.5 mmol/L (22.0-26.0) H Arterial Blood Oxygen Saturation 81.1 % (95-100) *L Arterial Blood Base Excess 0.3 (-2-2) Cj Test Positive Hola Reddy MD Nov 10, 2019 14:33
--- NOTE | 2019-11-10 14:37 | NUR ---
NURSE NOTES: Dr. Reddy updated on patient condition this afternoon, cleared patient to be transferred to the floor and have the central line discontinued.
--- NOTE | 2019-11-10 14:50 | NUR ---
NURSE NOTES: Dr. Carr at the bedside speaking with patient regarding past psych history. no verbal orders given at this time.
[2019-11-10] MEDS ORDERED: LORazepam 1mg tab ORAL PRN ×2 (15:00→20:00)
--- NOTE | 2019-11-10 16:38 | NUR ---
HAND-OFF: Report given to BHAVIK Priest. ENDORSED FOR REMOVAL OF CATHETER AND PERIPHERAL LINE PLACEMENT.
--- NOTE | 2019-11-10 18:30 | NUR ---
NURSE NOTES: patient was transferred from ICU placed room 411-[address] deirdre west care. A&Ox4, verbally responsive. no respiratory distress noted. no pain at this time. regular diet. skin intact. IV on RH 20g. saline lock. intact. bed in the lowest position and locked. call light within reach. will continue to provide plan of care.
--- NOTE | 2019-11-10 19:15 | Progress Note ---
DATE: 11/10/2019 SUBJECTIVE: The patient is in bed, no acute distress noted. The patient is able to answer the questions. He is not endorsing any suicidal or homicidal ideation. He is improving. MENTAL STATUS EXAMINATION: Alert and oriented times self, place, situation, and date. Mood is neutral. Affect is constricted. Congruent mood. Thought process, linear and goal oriented. Thought content, no suicidal or homicidal ideation. ASSESSMENT: The patient is cleared to be discharged as he is not an imminent danger to self or others. PLAN: 1. We will continue current psychotropic medications. 2. Provide the patient with reality orientation and supportive therapy. Pietro Carr M.D. DR: Jeffy JOB#: [id number] CC:
--- NOTE | 2019-11-10 19:20 | NUR ---
HAND-OFF: Report given to BHAVIK Cloud.
--- NOTE | 2019-11-10 19:40 | NUR ---
NURSE NOTES: Received pt from BHAVIK Garvey. Pt resting in bed, on room air, AAO x 4. Able to make needs known. Pt is ambulatory. IV site intact and patent. No acute distress noted. No labored breathing. Fall precaution maintained. Bed locked, lowest position, alarm on, side rails up, call light within reach.
[2019-11-10] MEDS ORDERED: [UNRECOGNIZED DRUG - OTHER] IV SCH (21:00)
[2019-11-10] MEDS ORDERED: MULTIVITAMIN IV SCH (21:00)
[2019-11-10] MEDS ORDERED: MAGNESIUM SULFATE IV SCH (21:00)
[2019-11-10] MEDS ORDERED: Thiamine HCl 100 MG in D5W 55 ML IVPB SCH (21:00)
[2019-11-10] MEDS ORDERED: FOLIC ACID IV SCH (21:00)
--- NOTE | 2019-11-10 23:48 | NUR ---
NURSE NOTES: Pt refused infusing IVF and zosyn. States it makes me feeling sick. Explained risks and benefits but still refused x 2.
[2019-11-11] VITALS: BP 124/85
[2019-11-11] MEDS: Piperacillin/Tazobactam 3.375 GM in NS 110 ML IVPB SCH (02:56)
[2019-11-11] MEDS: Albuterol/Ipratropium 3ml neb HHN SCH ×3 (03:00→10:31)
[2019-11-11 03:57] VITALS: BP 131/85
--- NOTE | 2019-11-11 07:48 | NUR ---
HAND-OFF: Report given to BHAVIK Perry.
[2019-11-11 08:00] VITALS: BP 114/77
--- NOTE | 2019-11-11 08:00 | NUR ---
NURSE NOTES: Patient awake and alert respirations unlabored.Per report patient refusing IV fluids.Patient when asked about IV fluids continues to refuse.Patient ate breakfast.Bed alarm is on,call light within reach.
[2019-11-11] MEDS ORDERED: NS 275ml ONE ×2 (11:09)
[2019-11-11] MEDS ORDERED: D5W 275ml ONE (11:09)
[2019-11-11] MEDS ORDERED: Sterile Water Irrig 1000ml IRRIG ONE (11:09)
[2019-11-11] MEDS ORDERED: NS 500ML ONE (11:09)
[2019-11-11] MEDS ORDERED: Tubing IV Secondary IV ONE ×4 (11:09)
--- NOTE | 2019-11-11 11:10 | NUR ---
NURSE NOTES: Patient tired to go to down stair to make a phone call without permission. Brought back the patient. Told patient that will bring a phone so wait in the room. Patient state "Ok." Patient eloped while looking for a phone. Called [employer]. Security and supervisor network control operators notified.
--- NOTE | 2019-11-11 11:25 | NUR ---
NURSING MANAGER CHEMICAL NOTE: Informed by Charge Nurse that patient eloped. [employer] called , and patient wasn't able to be located. [employer] contacted and given physical description and told that patient had an IV in on message machine (no officer available at time of call. notified of elopement. No family to contact
--- NOTE | 2019-11-11 11:34 | Diagnostic Imaging Report ---
Indications: Altered level of consciousness Technique: Spiral acquisitions obtained through the brain. Angled axial and coronal 5 x 5 mm slices were reconstructed. Total dose length product 1045 mGycm. CTDI vol(s) 53 mGy. Dose reduction achieved using automated exposure control Comparison: None. Findings: No acute intracranial hemorrhage or edema. No mass effect nor midline shift. Normal blank-white differentiation. Normal size ventricles and extra axial CSF spaces. Visualized orbits are unremarkable. There is ethmoid and sphenoid sinus disease. The mastoids are clear. Impression: Negative for acute intracranial bleed or mass effect Incidental finding of sinus disease The CT scanner at [facility] is accredited by the [employer] and the scans are performed using protocols designed to limit radiation exposure to as low as reasonably achievable to attain images of sufficient resolution adequate for diagnostic evaluation.
--- NOTE | 2019-11-12 03:15 | Progress Note ---
DATE: 11/12/2019 SUBJECTIVE: The patient was more alert and answers questions. No behavior issues noted. We talked about the substance use disorder. MENTAL STATUS EXAMINATION: The patient is alert and oriented times self, place, and situation. Mood is neutral. Affect is flat. Thought process is concrete. Thought content, no suicidal or homicidal ideation. ASSESSMENT: Stable. PLAN: We will continue current medications. Provide the patient with reality orientation and supportive therapy. Pietro Carr M.D. DR: JORGE JOB#: [id number] CC:
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
== END 2019-11-11 11:10 | disposition left against medical advice (07) | DRG 917 ==
LOC: EDBD 17:15 → EMR 17:30 → ICU 18:15 → EDBEDREQ 18:31 → 4E 11-10 18:46
PROC: 0BH17EZ Insertion of Endotracheal Airway into Trachea, Via Natural or Artificial Opening (ICD-10-PCS; principal; 2019-11-04)
PROC: 5A1955Z Respiratory Ventilation, Greater than 96 Consecutive Hours (ICD-10-PCS; principal; 2019-11-04)
PROC: B54CZZA Ultrasonography of Left Lower Extremity Veins, Guidance (ICD-10-PCS; 2019-11-05)
PROC: 06HN33Z Insertion of Infusion Device into Left Femoral Vein, Percutaneous Approach (ICD-10-PCS; 2019-11-05)
DX: T43.621A Poisoning by amphetamines, accidental (unintentional), initial encounter (principal); J96.01 Acute respiratory failure with hypoxia; A41.9 Sepsis, unspecified organism; G92 Toxic encephalopathy; J69.0 Pneumonitis due to inhalation of food and vomit; J80 Acute respiratory distress syndrome; E87.0 Hyperosmolality and hypernatremia; N17.9 Acute kidney failure, unspecified; F10.129 Alcohol abuse with intoxication, unspecified; Y92.9 Unspecified place or not applicable; H02.9 Unspecified disorder of eyelid; Z78.1 Physical restraint status
CPT/HCPCS: 36415; 36600; 70450; 71045; 74018; 80048; 80053; 80202; 80307; 81001; 81003; 82550; 82803; 83690; 84478; 85007; 85025; 86703; 87040; 87070; 87081; 87086; 87205; 93005; 93970; 94002; 94003; 94640; 94664; G0480; J7030; J7620; J8499